=== PATIENT | female | born 1950 | race Caucasian/White ===

== ENCOUNTER 2017-05-17 09:54 | Emergency (ER) | payer MEDICAID ==
[2017-05-17 10:15] VITALS: RESP 18; O2SAT 98
--- NOTE | 2017-05-17 10:31 | C.PDOC ---
History Of Present Illness 67 year old female, with a PSHx of a , presents to the ED with complaints of worsening LLQ pain for two weeks that began intermittent but has become more constant. Pain is localized and patient notes dysuria. Abdominal pain is not associated with urination. Patient notes nausea and subjective fever beginning today. Patient denies vomiting,diarrhea, hematuria, or other complaints at this time. WORSENING LLQ PAIN X 2 WEEKS. INTERMIT NOW MORE CONSTANT. LOCALIZED. +DYSURIA. PAIN NOT ASSOC W URINATION. +SUBJ FEVER TODAY. +NAUSEA. PSH CSECT EXAM MILD DIST NONTOXIC ABD +MILD B/L LQ TEND SOFT NO R/G REMAINDER NEG Time Seen by Provider: 05/17/17 10:28 Chief Complaint (Nursing): Abdominal Pain History Per: Patient History/Exam Limitations: no limitations Onset/Duration Of Symptoms: Intermittent Episodes (2 weeks ), Worse Since ( today with nausea and subjective fever ) Current Symptoms Are (Timing): Still Present Location Of Pain/Discomfort: LLQ Radiation Of Pain To:: None Quality Of Discomfort: "Pain" Associated Symptoms: Fever (subjective ), Nausea, Other (dysuria ). denies: Chills, Vomiting, Diarrhea Exacerbating Factors: None Alleviating Factors: None Recent travel outside of the [place]: No Abnormal Vaginal Bleeding: No Past Medical History Reviewed: Historical Data, Nursing Documentation, Vital Signs Vital Signs: Last Vital Signs Temp 98 F 05/17/17 13:47 Pulse 61 05/17/17 13:47 Resp 18 05/17/17 13:47 BP 142/77 05/17/17 13:47 Pulse Ox 98 05/17/17 13:47 - Medical History PMH: Hyperlipidemia, Kidney Stones, Chronic Kidney Disease Surgical History: Endoscopy - [facility] Procedures CYSTOSCOPY NEC (01/03/15) RETROGRADE PYELOGRAM (01/03/15) URETERAL CATHETERIZATION (01/03/15) Family History: States: Unknown Family Hx - Social History Hx Tobacco Use: No Hx Alcohol Use: No Hx Substance Use: No - Immunization History Hx Tetanus Toxoid Vaccination: No Hx Influenza Vaccination: No Hx Pneumococcal Vaccination: No Review Of Systems Constitutional: Positive for: Fever. Negative for: Chills Cardiovascular: Negative for: Chest Pain, Palpitations Respiratory: Negative for: Cough, Shortness of Breath Gastrointestinal: Positive for: Nausea, Abdominal Pain. Negative for: Vomiting , Diarrhea Genitourinary: Positive for: Dysuria. Negative for: Hematuria, Vaginal Bleeding Physical Exam - Physical Exam Appears: Non-toxic, Other (patient appears to be in mild distress) Skin: Warm, Dry, No Rash Head: Atraumatic, Normacephalic, No Tenderness Eye(s): bilateral: Normal Inspection, PERRL, EOMI Neck: Supple Chest: Symmetrical, No Deformity Cardiovascular: Rhythm Regular, No Murmur Respiratory: No Rales, No Rhonchi, No Wheezing, Other (clear to auscultation bilaterally ) Gastrointestinal/Abdominal: Soft, Tenderness (mild bilateral lower quadrant tenderness ), No Distention, No Guarding, No Rebound Extremity: Normal ROM, No Tenderness Neurological/Psych: Oriented x3 ED Course And Treatment - Laboratory Results Result Diagrams: 05/17/17 11:28 05/17/17 11:28 O2 Sat by Pulse Oximetry: 98 (RA) Pulse Ox Interpretation: Normal - CT Scan/US Abdomen Pelvis CT Other Rad Studies (CT/US): Read By Radiologist, Radiology Report Reviewed CT/US Interpretation: FINDINGS: LOWER THORAX: No visible consolidation, pleural effusion, or pneumothorax. LIVER: Unremarkable. GALLBLADDER AND BILE DUCTS: Cholelithiasis. PANCREAS: Unremarkable. SPLEEN: Unremarkable. ADRENALS: Unremarkable. KIDNEYS AND URETERS: The kidneys enhance symmetrically. Right-sided hydroureteronephrosis without obstructing calculus identified. Inflammatory changes noted along the ureter course. Correlate clinically for possibility of superimposed infection. Recently passed stone cannot be excluded. BLADDER: The urinary bladder appears unremarkable. REPRODUCTIVE: Fibroid uterus. APPENDIX: No secondary signs of acute appendicitis. BOWEL: The stomach is nondistended. The bowel loops appear within normal limits of caliber without evidence of intestinal obstruction. PERITONEUM: No significant free fluid. No definite free air. LYMPH NODES: Prominent vessels at the level of the left retroperitoneum. No bulky lymphadenopathy identified. VASCULATURE: No aortic aneurysm. BONES: Osseous demineralization. Degenerative changes. OTHER FINDINGS: None. IMPRESSION: Right-sided hydroureteronephrosis without obstructing calculus identified. Inflammatory changes noted along the ureter course. Correlate clinically for possibility of superimposed infection. Recently passed stone cannot be excluded. Cholelithiasis. Fibroid uterus. Additional incidental findings as above. Progress Note: Abdomen Pelvis CT and labs were ordered. Patient was given Morphine, Zofran, and Lactated Ringers. Progress - Re-Evaluation Re-evaluation Note: 05/17/17 13:32 COMFROTABLE NAD ASYMPT PS PRIOR HO KIDNEY STONES. DC ABX, FU - Data Reviewed Data Reviewed: Lab, Diagnostic imaging, Old records Disposition Counseled Patient/Family Regarding: Studies Performed, Diagnosis, Need For Followup, Rx Given - Disposition Referrals: Arnulfo Gusman Jr., MD [Staff Provider] - YOUR,UROLOGIST [Other] Disposition: HOME/ ROUTINE Disposition Time: 13:33 Condition: IMPROVED Prescriptions: Ibuprofen [Motrin] 600 mg PO Q6 #30 tab levoFLOXacin [Levaquin] 750 mg PO DAILY #6 tab Ondansetron [Zofran Odt] 4 mg PO TID PRN #9 odt PRN Reason: Nausea/Vomiting Phenazopyridine HCl [Pyridium] 200 mg PO BID #6 tablet Tamsulosin [Flomax] 0.4 mg PO DAILY #14 cap Instructions: Urinary Tract Infection in Women (ED), Renal Colic (ED) Forms: [employer] (Indonesian) - Clinical Impression Clinical Impression: Renal colic, UTI (urinary tract infection) - Scribe Statement The provider has reviewed the documentation as recorded by the Scribe Gabriela Jacobs All medical record entries made by the Scribe were at my direction and personally dictated by me. I have reviewed the chart and agree that the record accurately reflects my personal performance of the history, physical exam, medical decision making, and the department course for this patient. I have also personally directed, reviewed, and agree with the discharge instructions and disposition.
[2017-05-17] MEDS ORDERED: Lactated Ringer's 1,000 ML IV STA (10:42)
[2017-05-17] MEDS ORDERED: Iohexol 240 (50 ml) PO STA (10:42)
[2017-05-17] MEDS ORDERED: Lactated Ringer's 1,000 ML ONE (11:00)
[2017-05-17] MEDS ORDERED: Iohexol 240 (50 ml) ONE (11:00)
[2017-05-17 11:35] LABS: BASO # 0.1 K/uL (0.0-0.2); BASO % 0.8 % (0.0-2.0); EOS # 0.2 K/uL (0.0-0.7); EOS % 2.6 % (0.0-4.0); HEMATOCRIT 36.5 % (34.0-47.0); LYMPH # 1.5 K/uL (1.0-4.3); LYMPH % 15.5 % (20.0-40.0); MEAN CELL VOLUME 76.6 fL (81.0-99.0); MEAN CORPUSCULAR HEMOGLOBIN 24.8 pg (27.0-31.0); MEAN CORPUSCULAR HGB CONC 32.3 g/dL (33.0-37.0); MEAN PLATELET VOLUME 8.2 fL (7.2-11.7); MONO # 0.4 K/uL (0.0-0.8); MONO % 4.3 % (0.0-10.0); RED CELL DISTRIBUTION WIDTH 15.2 % (11.5-14.5); WHITE BLOOD COUNT 9.5 K/uL (4.8-10.8)
[2017-05-17 11:43] LABS: CHLORIDE 101 mmol/L (98-107); SODIUM 139 mmol/L (132-148)
[2017-05-17 11:44] LABS: POTASSIUM 3.6 mmol/L (3.6-5.2)
[2017-05-17 11:46] LABS: ALKALINE PHOSPHATASE 90 U/L (38-126); ALT/SGPT 26 U/L (9-52); AST/SGOT 23 U/L (14-36); BILIRUBIN,TOTAL 0.6 mg/dL (0.2-1.3); BLOOD UREA NITROGEN 15 mg/dL (7-17); CALCIUM 8.7 mg/dl (8.6-10.4); CARBON DIOXIDE 27 mmol/L (22-30); GFR AFRICAN-AMERICAN > 60; GLUCOSE,RANDOM 92 mg/dL (65-105); TOTAL PROTEIN 8.9 g/dL (6.3-8.3)
[2017-05-17 11:58] LABS: RBC URINE 15 /hpf (0-3); URINE BACTERIA RARE (<OCC); URINE BILIRUBIN NEGATIVE (NEGATIVE); URINE BLOOD 2+ (NEGATIVE); URINE COLOR Yellow (YELLOW); URINE GLUCOSE (UA) NORMAL (Normal); URINE KETONE NEGATIVE (NEGATIVE); URINE LEUKOCYTE ESTERASE TRACE Leu/uL (Negative); URINE PROTEIN 2+ mg/dL (NEGATIVE); URINE UROBILINOGEN NORMAL mg/dL (0.2-1.0); WBC URINE 36 /hpf (0-5)
[2017-05-17] MEDS ORDERED: Iodixanol 320 MG/ML 100 ML BOTTLE IV ONE (12:44)
--- NOTE | 2017-05-17 13:22 | CT ---
PROCEDURE: CT Abdomen and Pelvis with oral and IV contrast. HISTORY: abd pain RLQ COMPARISON: CT abdomen and pelvis without contrast performed 01/02/15 TECHNIQUE: Contiguous axial images of the abdomen and pelvis. Oral and IV contrast was administered. Coronal and Sagittal reformats generated and reviewed. Contrast dose: 100 mL Visipaque Radiation dose: Total exam DLP = 896.91 mGy-cm. This CT exam was performed using one or more of the following dose reduction techniques: Automated exposure control, adjustment of the mA and/or kV according to patient size, and/or use of iterative reconstruction technique. FINDINGS: LOWER THORAX: No visible consolidation, pleural effusion, or pneumothorax. LIVER: Unremarkable. GALLBLADDER AND BILE DUCTS: Cholelithiasis. PANCREAS: Unremarkable. SPLEEN: Unremarkable. ADRENALS: Unremarkable. KIDNEYS AND URETERS: The kidneys enhance symmetrically. Right-sided hydroureteronephrosis without obstructing calculus identified. Inflammatory changes noted along the ureter course. Correlate clinically for possibility of superimposed infection. Recently passed stone cannot be excluded. BLADDER: The urinary bladder appears unremarkable. REPRODUCTIVE: Fibroid uterus. APPENDIX: No secondary signs of acute appendicitis. BOWEL: The stomach is nondistended. The bowel loops appear within normal limits of caliber without evidence of intestinal obstruction. PERITONEUM: No significant free fluid. No definite free air. LYMPH NODES: Prominent vessels at the level of the left retroperitoneum. No bulky lymphadenopathy identified. VASCULATURE: No aortic aneurysm. BONES: Osseous demineralization. Degenerative changes. OTHER FINDINGS: None. IMPRESSION: Right-sided hydroureteronephrosis without obstructing calculus identified. Inflammatory changes noted along the ureter course. Correlate clinically for possibility of superimposed infection. Recently passed stone cannot be excluded. Cholelithiasis. Fibroid uterus. Additional incidental findings as above.
[2017-05-17 13:48] VITALS: BP 142/77; PULSE 61; TEMP 98
== END 2017-05-17 13:49 | disposition home or self-care (01) ==
LOC: C.ER 09:54
DX: N39.0 Urinary tract infection, site not specified (principal); N23 Unspecified renal colic; N18.9 Chronic kidney disease, unspecified
CPT/HCPCS: 74177; 80053; 81001; 83690; 85025; 87086; 96374; 96375; 99284; J1885; J2270; J2405; J7120; Q9966; Q9967

== ENCOUNTER 2017-05-30 09:51 | Inpatient (IN) | payer MEDICAID ==
[2017-05-30] MEDS ORDERED: Sodium Chloride 0.9% 1,000 ML IV ONE ×2 (10:39→13:32)
[2017-05-30 10:58] LABS: BASO % 0.7 % (0.0-2.0); EOS % 0.1 % (0.0-4.0); HEMATOCRIT 35.3 % (34.0-47.0); LYMPH # 0.5 K/uL (1.0-4.3); LYMPH % 6.4 % (20.0-40.0); MEAN CORPUSCULAR HEMOGLOBIN 24.7 pg (27.0-31.0); MEAN CORPUSCULAR HGB CONC 33.1 g/dL (33.0-37.0); MEAN PLATELET VOLUME 8.4 fL (7.2-11.7); MONO # 0.4 K/uL (0.0-0.8); MONO % 5.7 % (0.0-10.0); NRBC % 0.5 % (0.0-2.0); PLATELET COUNT 209 K/uL (130-400); WHITE BLOOD COUNT 7.2 K/uL (4.8-10.8)
[2017-05-30 10:59] LABS: MEAN CELL VOLUME 74.6 fL (81.0-99.0)
[2017-05-30 11:03] LABS: VENOUS BLOOD GAS BASE EXCESS 0.4 mmol/L (0.0-2.0); VENOUS BLOOD GAS PCO2 31 mmHg (40-60); VENOUS BLOOD PH 7.48 (7.32-7.43)
[2017-05-30 11:08] LABS: ALB/GLOB RATIO 1.2 (1.0-2.1); ALKALINE PHOSPHATASE 96 U/L (38-126); ALT/SGPT 24 U/L (9-52); AST/SGOT 26 U/L (14-36); BILIRUBIN,TOTAL 1.2 mg/dL (0.2-1.3); BLOOD UREA NITROGEN 15 mg/dL (7-17); CALCIUM 8.1 mg/dl (8.6-10.4); CARBON DIOXIDE 23 mmol/L (22-30); CHLORIDE 91 mmol/L (98-107); GFR AFRICAN-AMERICAN > 60; GLUCOSE,RANDOM 117 mg/dL (65-105); POTASSIUM 3.7 mmol/L (3.6-5.2); SODIUM 127 mmol/L (132-148); TOTAL PROTEIN 7.8 g/dL (6.3-8.3)
[2017-05-30 11:16] LABS: URINE BACTERIA RARE (<OCC); URINE BILIRUBIN NEGATIVE (NEGATIVE); URINE COLOR Yellow (YELLOW); URINE GLUCOSE (UA) NORMAL (Normal); URINE KETONE 1+ mg/dL (NEGATIVE); URINE LEUKOCYTE ESTERASE NEG Leu/uL (Negative); URINE PROTEIN 2+ mg/dL (NEGATIVE); URINE UROBILINOGEN NORMAL mg/dL (0.2-1.0); WBC URINE 1 /hpf (0-5)
[2017-05-30 11:28] LABS: NEUTROPHIL 82 % (50-75); TOTAL CELLS COUNTED 100
[2017-05-30 11:31] LABS: RBC URINE 5 /hpf (0-3)
[2017-05-30 11:32] LABS: URINE BLOOD 3+ (NEGATIVE)
--- NOTE | 2017-05-30 13:54 | C.PDOC ---
History Of Present Illness 67 yr old female presents to the ER with complaints of fever, nausea, vomiting and generalized weakness for the past 3 days. Patient denies chest pain, SOB, cough, sore throat, runny nose, abdominal pain, dysuria/hematuria. She also denies sick contacts or recent overseas travel. Time Seen by Provider: 05/30/17 10:20 Chief Complaint (Nursing): GI Problem History Per: Patient History/Exam Limitations: no limitations Onset/Duration Of Symptoms: Days (3) Past Medical History Reviewed: Historical Data, Nursing Documentation, Vital Signs Vital Signs: Last Vital Signs Temp 97.8 F 06/02/17 15:34 Pulse 82 06/02/17 15:34 Resp 20 06/02/17 15:34 BP 114/73 06/02/17 15:34 Pulse Ox 95 06/02/17 15:34 - Medical History PMH: Hyperlipidemia, Kidney Stones, Chronic Kidney Disease Surgical History: Endoscopy - [facility] Procedures CYSTOSCOPY NEC (01/03/15) RETROGRADE PYELOGRAM (01/03/15) URETERAL CATHETERIZATION (01/03/15) Family History: States: No Known Family Hx - Social History Hx Tobacco Use: No Hx Alcohol Use: No Hx Substance Use: No - Immunization History Hx Tetanus Toxoid Vaccination: No Hx Influenza Vaccination: No Hx Pneumococcal Vaccination: No Review Of Systems Except As Marked, All Systems Reviewed And Found Negative. Constitutional: Positive for: Fever (Subjective), Weakness (Generalized) ENT: Negative for: Nose Discharge, Throat Pain Cardiovascular: Negative for: Chest Pain Respiratory: Negative for: Cough, Shortness of Breath Gastrointestinal: Positive for: Nausea, Vomiting. Negative for: Abdominal Pain Genitourinary: Negative for: Dysuria, Incontinence Neurological: Negative for: Weakness, Numbness Physical Exam - Physical Exam Appears: Non-toxic, Other ((+) Uncomfortable) Skin: Warm, Dry, No Rash Head: Atraumatic, Normacephalic Oral Mucosa: Moist Cardiovascular: Rhythm Regular, Other ((+) Tachy) Respiratory: Normal Breath Sounds, No Rales, No Rhonchi, No Stridor, No Wheezing Gastrointestinal/Abdominal: Normal Exam, Soft, No Tenderness, No Guarding, No Rebound Back: Normal Inspection, No CVA Tenderness Extremity: Normal ROM, No Swelling Neurological/Psych: Oriented x3, Normal Speech, Normal Motor, Normal Sensation ED Course And Treatment - Laboratory Results Result Diagrams: 06/02/17 08:51 06/02/17 08:51 ECG: Interpreted By Me, Viewed By Me (NSR 100 bpm, normal axis, no acute ST/T wave changes) ECG Interpretation: No Acute Changes O2 Sat by Pulse Oximetry: 97 (RA) Pulse Ox Interpretation: Normal - Radiology CXR: Interpreted by Me, Viewed By Me CXR Interpretation: Yes: Cardiomegaly. No: Infiltrates - CT Scan/US CT SCAN ABD/PELVIS Other Rad Studies (CT/US): Read By Radiologist, Radiology Report Reviewed CT/US Interpretation: Accession No. : [id number]. Patient Name / ID : MICK SHAHID / [id number]. Exam Date : 05/30/2017 14:13:33 ( Approved ). Study Comment : Sex / Age : F / 67Y. Creator : Nhan Powers MD. Dictator : [employer] Manager : Real Estate Account Executive : Nhan Powers MD. Approver2 : Report Date : 05/30/2017 15:00:46. My Comment : . PROCEDURE: CT abdomen and pelvis dated 05/30/2017. HISTORY: Abdominal pain nausea vomiting and fever. COMPARISON: Comparison made with prior study 05/17/2017. TECHNIQUE: Contiguous axial images of the abdomen and pelvis performed without oral or intravenous contrast. Coronal and Sagittal reformats generated. This CT exam was performed using one or more of the following dose reduction techniques: Automated exposure control, adjustment of the mA and/or kV according to patient size, and/or use of iterative reconstruction technique. Radiation dose: Total exam DLP = 679.78 mGy-cm. FINDINGS: LOWER THORAX: . Trace pericardial effusion is present. Heart size within range of normal. There is a small hiatal hernia. Mild passive atelectasis right lower lobe of. Minor linear scarring extending to the posterior pleural surface seen in the left lung base. LIVER: Liver is mildly enlarged measuring nearly 19 cm in CC dimension. No obvious hepatic mass collection or calcification. GALLBLADDER AND BILE DUCTS: Gallbladder is physiologically distended. No evidence of intraluminal gallbladder calculi. PANCREAS: The pancreas appears slightly atrophic and fatty replaced. No obvious pancreatic masses collections or calcifications. No significant pancreatic ductal dilatation. SPLEEN: Spleen is mildly enlarged measuring approximately 14 cm in CC dimension. No obvious splenic mass or collection. ADRENALS: No adrenal masses. KIDNEYS AND URETERS: Kidneys demonstrate symmetric size. No evidence of nephrolithiasis or hydronephrosis. The urinary bladder is physiologically distended. No evidence of intraluminal urinary bladder calculi. BLADDER: The urinary bladder physiologically distended. No evidence of intraluminal urinary bladder calculi. . REPRODUCTIVE : The uterus is slightly enlarged and bulky in appearance. APPENDIX: Unremarkable. BOWEL: Evaluation of the bowel is somewhat limited due to the lack of oral contrast material. The stomach is incompletely distended which presumably accounts for slight thick-walled appearance. Visualized loops of small bowel exhibit normal contour and caliber. No evidence of acute mechanical small bowel obstruction. There are a few colonic diverticula seen along the distal descending and sigmoid colon however no radiographic evidence of acute diverticulitis. PERITONEUM: Unremarkable. No fluid collection. No free air. . Tiny fat containing umbilical hernia. LYMPH NODES: No significant adenopathy. VASCULATURE: Unremarkable. No aortic aneurysm. BONES: Minor multilevel degenerative spondylosis of the lower thoracic and lumbar spine. Sclerotic density within the at left lateral superior L5 segment probably represents bone island or osteoma. OTHER FINDINGS: None. Progress Note: PLAN: Blood work, CXR, UA, influenza swab ordered and reviewed. Patient given IV NS bolus, PO tylenol. Blood work shows left shift with 9% bands. CT scan of abd/pelvis ordered and reviewed - shows hepatosplenomegaly and trace pericardial effusion (? due to viral syndrome). EKG ordered. - Physician Consult Information Physician Contacted: Stacie Singh Outcome Of Conversation: Discussed patient with Dr. Jacklyn Singh, he would like Dr. Collins for ID and Rocephin 1 g IVPB. Disposition - Disposition Disposition: HOSPITALIZED Disposition Time: 16:11 Condition: STABLE - Clinical Impression Clinical Impression: Hepatosplenomegaly, Fever, Bandemia, Pericardial effusion, Viral syndrome - Scribe Statement The provider has reviewed the documentation as recorded by the Salome Hahn Provider Attestation: All medical record entries made by the Inocenciaibe were at my direction and personally dictated by me. I have reviewed the chart and agree that the record accurately reflects my personal performance of the history, physical exam, medical decision making, and the department course for this patient. I have also personally directed, reviewed, and agree with the discharge instructions and disposition. Decision To Admit - Pt Status Changed To: Hospital Disposition Of: Inpatient - Admit Certification Admit to Inpatient:: After my assessment, the patient will require hospitalization for at least two midnights. This is because of the severity of symptoms shown, intensity of services needed, and/or the medical risk in this patient being treated as an outpatient. - InPatient: Physician Admission Certification: I certify that this patient requires 2 or more midnights of care for the following reason:: see notes - . Bed Request Type: Telemetry Admitting Physician: Stacie Singh Patient Diagnosis: Pericardial effusion, Fever, Hepatosplenomegaly, Bandemia, Viral syndrome
--- NOTE | 2017-05-30 15:23 | CT ---
PROCEDURE: CT abdomen and pelvis dated 05/30/2017. HISTORY: Abdominal pain nausea vomiting and fever. COMPARISON: Comparison made with prior study 05/17/2017. TECHNIQUE: Contiguous axial images of the abdomen and pelvis performed without oral or intravenous contrast. Coronal and Sagittal reformats generated. This CT exam was performed using one or more of the following dose reduction techniques: Automated exposure control, adjustment of the mA and/or kV according to patient size, and/or use of iterative reconstruction technique. Radiation dose: Total exam DLP = 679.78 mGy-cm. FINDINGS: LOWER THORAX: . Trace pericardial effusion is present. Heart size within range of normal. There is a small hiatal hernia. Mild passive atelectasis right lower lobe of. Minor linear scarring extending to the posterior pleural surface seen in the left lung base. LIVER: Liver is mildly enlarged measuring nearly 19 cm in CC dimension. No obvious hepatic mass collection or calcification. GALLBLADDER AND BILE DUCTS: Gallbladder is physiologically distended. No evidence of intraluminal gallbladder calculi. PANCREAS: The pancreas appears slightly atrophic and fatty replaced. No obvious pancreatic masses collections or calcifications. No significant pancreatic ductal dilatation. SPLEEN: Spleen is mildly enlarged measuring approximately 14 cm in CC dimension. No obvious splenic mass or collection. ADRENALS: No adrenal masses. KIDNEYS AND URETERS: Kidneys demonstrate symmetric size. No evidence of nephrolithiasis or hydronephrosis. The urinary bladder is physiologically distended. No evidence of intraluminal urinary bladder calculi. BLADDER: The urinary bladder physiologically distended. No evidence of intraluminal urinary bladder calculi. . REPRODUCTIVE: The uterus is slightly enlarged and bulky in appearance. APPENDIX: Unremarkable. BOWEL: Evaluation of the bowel is somewhat limited due to the lack of oral contrast material. The stomach is incompletely distended which presumably accounts for slight thick-walled appearance. Visualized loops of small bowel exhibit normal contour and caliber. No evidence of acute mechanical small bowel obstruction. There are a few colonic diverticula seen along the distal descending and sigmoid colon however no radiographic evidence of acute diverticulitis. PERITONEUM: Unremarkable. No fluid collection. No free air. . Tiny fat containing umbilical hernia. LYMPH NODES: No significant adenopathy. VASCULATURE: Unremarkable. No aortic aneurysm. BONES: Minor multilevel degenerative spondylosis of the lower thoracic and lumbar spine. Sclerotic density within the at left lateral superior L5 segment probably represents bone island or osteoma. OTHER FINDINGS: None. IMPRESSION: [employer] the the open the the open the the [employer] who has unlimited liability
[2017-05-30] MEDS ORDERED: cefTRIAXone IV 1 gm in Dextros 50 ML IV STA (16:33)
[2017-05-30] MEDS ORDERED: cefTRIAXone IV 1 gm in Dextros 50 ML IVPB ONE (16:37)
--- NOTE | 2017-05-30 17:05 | CP.PCM.HP ---
History of Present Illness - History of Present Illness History of Present Illness: A 67-year-old female with PMH-hyperlipidemia, renal stone and CKD presents to the ER for C/O-fever. C/O-fever for 3 days. Insidious in onset, progressive, high-grade, with chills and rigors, near continuous throughout the day, partly relieved by medications. C/O-vomiting for 3 days. Nonbilious non-bloody, 1-2 episodes per day, containing only food particles. C/O-generalized weakness for 2-3 days. No C/O-chest pain, shortness of breath, cough, abdominal pain, abdominal distention, urinary or bladder disturbances. Present on Admission - Present on Admission Any Indicators Present on Admission: No Past Patient History - Past Medical History & Family History Past Medical History?: Yes - Past Social History Smoking Status: Never Smoked - CARDIAC Hx Cardiac Disorders: No - PULMONARY Hx Respiratory Disorders: No - NEUROLOGICAL Hx Neurological Disorder: No - HEENT Hx HEENT Problems: Yes Hx Cataracts: Yes - RENAL Hx Chronic Kidney Disease: Yes Hx Kidney Stones: Yes - ENDOCRINE/METABOLIC Hx Endocrine Disorders: No - HEMATOLOGICAL/ONCOLOGICAL Hx Blood Disorders: No Hx Blood Transfusions: Yes Hx Blood Transfusion Reaction: No - INTEGUMENTARY Hx Dermatological Problems: No - MUSCULOSKELETAL/RHEUMATOLOGICAL Hx Musculoskeletal Disorders: No Hx Falls: No - GASTROINTESTINAL Hx Gastrointestinal Disorders: Yes (HX GI BLEEDING DUE TO NAPROSYN) - GENITOURINARY/GYNECOLOGICAL Hx Genitourinary Disorders: No - PSYCHIATRIC Hx Substance Use: No - SURGICAL HISTORY Hx Surgeries: Yes Hx Cataract Extraction: Yes (BILAT IOL) Hx Section: Yes (26 years ago) Other/Comment: CYSTO STENT INSERTION - ANESTHESIA Hx Anesthesia: Yes Hx Anesthesia Reactions: No Hx Malignant Hyperthermia: No Meds Allergies/Adverse Reactions: Allergies Allergy/AdvReac Type Severity Reaction Status Date / Time No Known Allergies Allergy Unverified 01/02/15 17:31 Physical Exam - Constitutional Appears: Well - Head Exam Head Exam: ATRAUMATIC, NORMAL INSPECTION, NORMOCEPHALIC - Eye Exam Eye Exam: EOMI, Normal appearance, PERRL Pupil Exam: NORMAL ACCOMODATION, PERRL - ENT Exam ENT Exam: Mucous Membranes Moist, Normal Exam - Neck Exam Neck exam: Positive for: Normal Inspection - Respiratory Exam Respiratory Exam: Decreased Breath Sounds - Cardiovascular Exam Cardiovascular Exam: REGULAR RHYTHM, +S1, +S2 - GI/Abdominal Exam GI & Abdominal Exam: Diminished Bowel Sounds, Soft - Rectal Exam Rectal Exam: Deferred Results - Vital Signs Recent Vital Signs: Last Vital Signs Temp 100 F H 05/30/17 16:52 Pulse 103 H 05/30/17 16:52 Resp 18 05/30/17 16:52 BP 150/79 05/30/17 16:52 Pulse Ox 99 05/30/17 16:52 - Labs Result Diagrams: 06/02/17 08:51 06/02/17 08:51 Labs: Laboratory Results - last 24 hr 05/30/17 05/30/17 05/30/17 10:41 10:51 10:51 WBC 7.2 RBC 4.73 Hgb 11.7 Hct 35.3 MCV 74.6 L D MCH 24.7 L MCHC 33.1 RDW 15.0 H Plt Count 209 MPV 8.4 Neut % (Auto) 87.1 H Lymph % (Auto) 6.4 L [place] % (Auto) 5.7 Eos % (Auto) 0.1 Baso % (Auto) 0.7 Neut # 6.3 Lymph # 0.5 L [place] # 0.4 Eos # 0.0 Baso # 0.0 Neutrophils % (Manual) 82 H Band Neutrophils % 9 H Lymphocytes % (Manual) 6 L Monocytes % (Manual) 3 Platelet Estimate Normal Polychromasia Slight Hypochromasia (manual) Slight Anisocytosis (manual) Slight pO2 VBG pH VBG pCO2 VBG HCO3 VBG Total CO2 VBG O2 Sat (Calc) VBG Base Excess VBG Potassium Glucose Lactate Sodium Potassium Chloride Carbon Dioxide Anion Gap BUN Creatinine Est GFR ( Amer) Est GFR (Non-Af Amer) Random Glucose Calcium Total Bilirubin AST ALT Alkaline Phosphatase Total Protein Albumin Globulin Albumin/Globulin Ratio Venous Blood Potassium Urine Color Yellow Urine Clarity Hazy Urine pH 5.0 Ur Specific [place] 1.021 Urine Protein 2+ H Urine Glucose (UA) Normal Urine Ketones 1+ H Urine Blood 3+ H Urine Nitrate Negative Urine Bilirubin Negative Urine Urobilinogen Normal Ur Leukocyte Esterase Neg Urine WBC (Auto) 1 Urine RBC (Auto) 5 H Ur Squamous Epith Cells < 1 Urine Bacteria Rare Hyaline Casts 6-10 H Urine HCG, Qual Negative Influenza Typ A,B (EIA) Negative for flu a/b 05/30/17 05/30/17 10:51 10:57 WBC RBC Hgb Hct MCV MCH MCHC RDW Plt Count MPV Neut % (Auto) Lymph % (Auto) [place] % (Auto) Eos % (Auto) Baso % (Auto) Neut # Lymph # [place] # Eos # Baso # Neutrophils % (Manual) Band Neutrophils % Lymphocytes % (Manual) Monocytes % (Manual) Platelet Estimate Polychromasia Hypochromasia (manual) Anisocytosis (manual) pO2 39 VBG pH 7.48 H VBG pCO2 31 L VBG HCO3 24.7 VBG Total CO2 24.1 VBG O2 Sat (Calc) 82.0 H VBG Base Excess 0.4 VBG Potassium 3.6 Glucose 127 H Lactate 1.4 Sodium 127 L 130.0 L Potassium 3.7 Chloride 91 L 97.0 L Carbon Dioxide 23 Anion Gap 16 BUN 15 Creatinine 0.9 Est GFR ( Amer) > 60 Est GFR (Non-Af Amer) > 60 Random Glucose 117 H Calcium 8.1 L Total Bilirubin 1.2 AST 26 ALT 24 Alkaline Phosphatase 96 Total Protein 7.8 Albumin 4.2 Globulin 3.6 Albumin/Globulin Ratio 1.2 Venous Blood Potassium 3.6 Urine Color Urine Clarity Urine pH Ur Specific [place] Urine Protein Urine Glucose (UA) Urine Ketones Urine Blood Urine Nitrate Urine Bilirubin Urine Urobilinogen Ur Leukocyte Esterase Urine WBC (Auto) Urine RBC (Auto) Ur Squamous Epith Cells Urine Bacteria Hyaline Casts Urine HCG, Qual Influenza Typ A,B (EIA)
--- NOTE | 2017-05-30 18:59 | RAD ---
PROCEDURE: CHEST RADIOGRAPH, 1 VIEW HISTORY: FEVER COMPARISON: Comparison made with chest radiograph 01/18/2015. FINDINGS: LUNGS: Poor inspiration with low lung volumes, crowded bronchovascular markings and mild bibasilar atelectasis. 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 CARDIOVASCULAR: Heart size mildly enlarged. OSSEOUS STRUCTURES: No significant abnormalities. VISUALIZED UPPER ABDOMEN: Normal. OTHER FINDINGS: None. IMPRESSION: Poor inspiration with low lung volumes, crowded bronchovascular markings and mild bibasilar atelectasis.
[2017-05-31] MEDS: Dextrose 5%/0.45% NS 1,000 ML IV SCH ×4 (01:07→21:36)
[2017-05-31 08:48] VITALS: RESP 20
[2017-05-31] MEDS: Pantoprazole 40 mg EC Tab PO SCH (09:16)
[2017-05-31] MEDS: Enoxaparin 40 mg Syringe SC SCH (09:17)
[2017-05-31] MEDS: cefTRIAXone IV 1 gm in Dextros 50 ML IVPB SCH (09:18)
[2017-05-31] MEDS: Azithromycin 500 MG in Sodium Chloride 0.9% 250 ML IVPB SCH (09:20)
[2017-05-31] MEDS ORDERED: cefTRIAXone 2 GM in Sodium Chloride 0.9% 100 ML IVPB SCH (10:00)
--- NOTE | 2017-05-31 10:49 | CP.PCM.CON ---
History of Present Illness - History of Present Illness History of Present Illness: 67 yr old female presents to the ER with complaints of fever, nausea, vomiting and generalized weakness for the past 3 days. Patient denies chest pain, SOB, cough, sore throat, runny nose, abdominal pain, dysuria/hematuria. She also denies sick contacts or recent overseas travel. - Medical History PMH: Hyperlipidemia, Kidney Stones, Chronic Kidney Disease Surgical History: Endoscopy Review of Systems - Review of Systems All systems: reviewed and no additional remarkable complaints except - Constitutional Constitutional: As Per HPI, Fever, Malaise - EENT Eyes: absent: As Per HPI, Blind Spots, Blurred Vision, Change in Vision, Decreased Night Vision, Diplopia, Discharge, Dry Eye, Exophthalmos, Floaters, Irritation, Itchy Eyes, Loss of Peripheral Vision, Pain, Photophobia, Requires Corrective Lenses, Sees Flashes, Spots in Vision, Tunnel Vision, Other Visual Disturbances, Loss of Vision, Other Ears: absent: As Per HPI, Decreased Hearing, Ear Discharge, Ear Pain, Tinnitus, Abnormal Hearing, Disequilibrium, Dizziness, Other Nose/Mouth/Throat: As Per HPI - Breasts Breasts: absent: As Per HPI, Change in Shape, Mass, Pain, Nipple Discharge, Nipple Inversion, Skin Changes, Swelling, Other - Cardiovascular Cardiovascular: absent: As Per HPI, Acrocyanosis, Chest Pain, Chest Pain at Rest , Chest Pain with Activity, Claudication, Diaphoresis, Dyspnea, Dyspnea on Exertion, Edema, Irregular Heart Rhythm, Pain Radiating to Arm/Neck/Jaw, Leg Edema, Leg Ulcers, Lightheadedness, Orthopnea, Palpitations, Paroxysmal Nocturnal Dyspnea, Pedal Edema, Radiating Pain, Rapid Heart Rate, Slow Heart Rate, Syncope, Other - Respiratory Respiratory: absent: As Per HPI, Cough, Dyspnea, Hemoptysis, Dyspnea on Exertion , Wheezing, Snoring, Stridor, Pain on Inspiration, Chest Congestion, Excessive Mucous Production, Change in Mucous Color, Pain with Coughing, Other - Gastrointestinal Gastrointestinal: absent: As Per HPI, Abdominal Pain, Belching, Bloating, Change in Bowel Habits, Change in Stool Character, Coffee Ground Emesis, Constipation, Cramping, Diarrhea, Dyspepsia, Dysphagia, Early Satiety, Excessive Flatus, Fecal Incontinence, Heartburn, Hematemesis, Hematochezia, Loose Stools, Melena, Nausea, Odynophagia, Temesmus, Vomiting, Other - Genitourinary Genitourinary: absent: As Per HPI, Change in Urinary Stream, Difficulty Urinating, Dysuria, Flank Pain, Hematuria, Pyuria, Nocturia, Urinary Incontinence, Urinary Frequency, Urinary Hesitance, Urinary Urgency, Voiding Freq/Small Amts, Freq UTI, Hx Renal/Bladder Calculi, Hx /Renal Surgery, Bladder Distension, Other - Reproductive: Female Reproductive:Female: absent: As Per HPI, Amenorrhea, Amenorrhea/ Control, Currently Menstual, Cycle <21 Days, Cycle >35 Days, Cycle Variable, Menses 1-7 Days, Menses >/= 8 Days, Menses Variable, Cycle > 4 Weeks Between, No Menses for 6 Months, Heavy Menses, Light Menses, Normal Menses, Spotting Between Cycles , S/P Hysterectomy, Menopausal, Post Menopausal, Premenarche, Abnormal Vaginal Bleeding, Dysmenorrhea, Dyspareunia, Genital Lesions, Genital Pruritis, Pelvic Pain, Prolapse Symptoms, Sexual Dysfunction, Vaginal Discharge, Vaginal Dryness , Vaginal Odor, Vaginal Pruritis, Other - Menstruation Menstruation: absent: As Per HPI, Amenorrhea, Amenorrhea/ Control, Currently Menstual, Cycle <21 Days, Cycle >35 Days, Cycle Variable, Menses 1-7 Days, Menses >/= 8 Days, Menses Variable, Cycle > 4 Weeks Between, No Menses for 6 Months, Heavy Menses, Light Menses, Normal Menses, Spotting Between Cycles , S/P Hysterectomy, Menopausal, Post Menopausal, Premenarche, Abnormal Vaginal Bleeding, Dysmenorrhea, Other - Musculoskeletal Musculoskeletal: absent: As Per HPI, Abnormal Gait, Arthralgias, Atrophy, Back Pain, Deformity, Joint Swelling, Limited Range of Motion, Loss of Height, Muscle Cramps, Muscle Weakness, Myalgias, Neck Pain, Numbness, Radiating Pain into Limb, Stiffness, Tingling, Other - Integumentary Integumentary: absent: As Per HPI, Acne, Alopecia, Bleeding Lesions, Change in Hair, Change in Nails, Change in Pigmentation, Changing Lesions, Dry Skin, Erythema, Furuncle, Hirsutism, Lesions, New Lesions, Non-Healing Lesions, Photosensitivity, Pruritus, Rash, Skin Pain, Skin Ulcer, Sores, Striae, Swelling , Unusual Bruising, Wounds, Jaundice, Other - Neurological Neurological: absent: As Per HPI, Abnormal Gait, Abnormal Hearing, Abnormal Movements, Abnormal Speech, Behavioral Changes, Burning Sensations, Confusion, Convulsions, Disequilibrium, Dizziness, Numbness, Focal Weakness, Frequent Falls , Headaches, Lack of Coordination, Loss of Vision, Memory Loss, Paresthesias, Radicular Pain, Restless Legs, Sensory Deficit, Syncope, Tingling, Tremor, Vertigo, Weakness, Other Visual Disturbances, Other - Psychiatric Psychiatric: absent: As Per HPI, Abnormal Sleep Pattern, Anhedonia, Anxiety, Auditory Hallucinations, Behavioral Changes, Change in Appetite, Change in Libido, Confusion, Depression, Difficulty Concentrating, Hallucinations, Homicidal Ideation, Hopelessness, Irritability, Memory Loss, Mood Swings, Panic Attacks, Paranoia, Suicidal Ideation, Visual Hallucinations, Tactile Hallucinations, Other - Endocrine Endocrine: absent: As Per HPI, Change in Body Appearance, Change in Libido, Cold Intolorance, Deepening of Voice, Excessive Sweating, Fatigue, Flushing, Heat Intolorance, Increase in Ring/Shoe/Hat Size, Palpitations, Polydipsia, Polyphagia, Polyuria, Other - Hematologic/Lymphatic Hematologic: absent: As Per HPI, Easy Bleeding, Easy Bruising, Lymphadenopathy, Other Past Patient History - Past Medical History & Family History Past Medical History?: Yes - Past Social History Smoking Status: Never Smoked - CARDIAC Hx Cardiac Disorders: No - PULMONARY Hx Respiratory Disorders: No - NEUROLOGICAL Hx Neurological Disorder: No - HEENT Hx HEENT Problems: Yes Hx Cataracts: Yes - RENAL Hx Chronic Kidney Disease: Yes Hx Kidney Stones: Yes - ENDOCRINE/METABOLIC Hx Endocrine Disorders: No - HEMATOLOGICAL/ONCOLOGICAL Hx Blood Disorders: No Hx Blood Transfusions: Yes Hx Blood Transfusion Reaction: No - INTEGUMENTARY Hx Dermatological Problems: No - MUSCULOSKELETAL/RHEUMATOLOGICAL Hx Falls: No - GASTROINTESTINAL Hx Gastrointestinal Disorders: Yes (HX GI BLEEDING DUE TO NAPROSYN) - GENITOURINARY/GYNECOLOGICAL Hx Genitourinary Disorders: No - PSYCHIATRIC Hx Substance Use: No - SURGICAL HISTORY Hx Surgeries: Yes Hx Cataract Extraction: Yes (BILAT IOL) Hx Section: Yes (26 years ago) Other/Comment: CYSTO STENT INSERTION - ANESTHESIA Hx Anesthesia: Yes Hx Anesthesia Reactions: No Hx Malignant Hyperthermia: No Meds Allergies/Adverse Reactions: Allergies Allergy/AdvReac Type Severity Reaction Status Date / Time No Known Allergies Allergy Unverified 01/02/15 17:31 - Medications Medications: Current Medications Enoxaparin Sodium (Lovenox) 40 mg SC DAILY [facility] Last Admin: 05/31/17 09:17 Dose: 40 mg Azithromycin 500 mg/ Sodium (Chloride) 250 mls @ 250 mls/hr IVPB DAILY [facility] Last Admin: 05/31/17 09:20 Dose: 250 mls/hr Ceftriaxone Sodium (Rocephin Iv 1 Gm Duplex) 50 mls @ 100 mls/hr IVPB DAILY [facility] Last Admin: 05/31/17 09:18 Dose: 100 mls/hr Dextrose/Sodium Chloride (Dextrose 5%/0.45% Ns 1000 Ml) 1,000 mls @ 100 mls/hr IV .Q10H [facility] Last Admin: 05/31/17 06:33 Dose: 100 mls/hr Pantoprazole Sodium (Protonix Ec Tab) 40 mg PO DAILY [facility] Last Admin: 05/31/17 09:16 Dose: 40 mg Pneumococcal Polyvalent Vaccine (Pneumovax 23 Vaccine) 0.5 ml IM .ONCE ONE Stop: 06/02/17 10:01 Physical Exam - Constitutional Appears: Well - Head Exam Head Exam: ATRAUMATIC, NORMAL INSPECTION, NORMOCEPHALIC - Eye Exam Eye Exam: EOMI, Normal appearance, PERRL Pupil Exam: NORMAL ACCOMODATION, PERRL - ENT Exam ENT Exam: Mucous Membranes Moist, Normal Exam - Neck Exam Neck exam: Positive for: Normal Inspection - Respiratory Exam Respiratory Exam: Clear to Auscultation Bilateral, NORMAL BREATHING PATTERN - Cardiovascular Exam Cardiovascular Exam: REGULAR RHYTHM - GI/Abdominal Exam GI & Abdominal Exam: Normal Bowel Sounds, Soft. absent: Tenderness - Rectal Exam Rectal Exam: NORMAL INSPECTION - Extremities Exam Extremities exam: Positive for: normal inspection - Back Exam Back exam: NORMAL INSPECTION - Neurological Exam Neurological exam: Alert, CN II-XII Intact, Normal Gait, Oriented x3, Reflexes Normal - Psychiatric Exam Psychiatric exam: Normal Affect, Normal Mood - Skin Skin Exam: Dry, Intact, Normal Color, Warm Results - Vital Signs Recent Vital Signs: Last Vital Signs Temp 97.7 F 05/31/17 08:47 Pulse 97 H 05/31/17 08:47 Resp 20 05/31/17 08:47 BP 133/72 05/31/17 08:47 Pulse Ox 95 05/31/17 08:47 - Labs Result Diagrams: 05/30/17 10:51 05/30/17 10:51 Labs: Laboratory Results - last 24 hr 05/30/17 05/30/17 05/30/17 10:41 10:51 10:51 WBC 7.2 RBC 4.73 Hgb 11.7 Hct 35.3 MCV 74.6 L D MCH 24.7 L MCHC 33.1 RDW 15.0 H Plt Count 209 MPV 8.4 Neut % (Auto) 87.1 H Lymph % (Auto) 6.4 L [place] % (Auto) 5.7 Eos % (Auto) 0.1 Baso % (Auto) 0.7 Neut # 6.3 Lymph # 0.5 L [place] # 0.4 Eos # 0.0 Baso # 0.0 Neutrophils % (Manual) 82 H Band Neutrophils % 9 H Lymphocytes % (Manual) 6 L Monocytes % (Manual) 3 Platelet Estimate Normal Polychromasia Slight Hypochromasia (manual) Slight Anisocytosis (manual) Slight pO2 VBG pH VBG pCO2 VBG HCO3 VBG Total CO2 VBG O2 Sat (Calc) VBG Base Excess VBG Potassium Glucose Lactate Sodium Potassium Chloride Carbon Dioxide Anion Gap BUN Creatinine Est GFR ( Amer) Est GFR (Non-Af Amer) Random Glucose Calcium Total Bilirubin AST ALT Alkaline Phosphatase Total Protein Albumin Globulin Albumin/Globulin Ratio Venous Blood Potassium Urine Color Yellow Urine Clarity Hazy Urine pH 5.0 Ur Specific [place] 1.021 Urine Protein 2+ H Urine Glucose (UA) Normal Urine Ketones 1+ H Urine Blood 3+ H Urine Nitrate Negative Urine Bilirubin Negative Urine Urobilinogen Normal Ur Leukocyte Esterase Neg Urine WBC (Auto) 1 Urine RBC (Auto) 5 H Ur Squamous Epith Cells < 1 Urine Bacteria Rare Hyaline Casts 6-10 H Urine HCG, Qual Negative Influenza Typ A,B (EIA) Negative for flu a/b 05/30/17 05/30/17 10:51 10:57 WBC RBC Hgb Hct MCV MCH MCHC RDW Plt Count MPV Neut % (Auto) Lymph % (Auto) [place] % (Auto) Eos % (Auto) Baso % (Auto) Neut # Lymph # [place] # Eos # Baso # Neutrophils % (Manual) Band Neutrophils % Lymphocytes % (Manual) Monocytes % (Manual) Platelet Estimate Polychromasia Hypochromasia (manual) Anisocytosis (manual) pO2 39 VBG pH 7.48 H VBG pCO2 31 L VBG HCO3 24.7 VBG Total CO2 24.1 VBG O2 Sat (Calc) 82.0 H VBG Base Excess 0.4 VBG Potassium 3.6 Glucose 127 H Lactate 1.4 Sodium 127 L 130.0 L Potassium 3.7 Chloride 91 L 97.0 L Carbon Dioxide 23 Anion Gap 16 BUN 15 Creatinine 0.9 Est GFR ( Amer) > 60 Est GFR (Non-Af Amer) > 60 Random Glucose 117 H Calcium 8.1 L Total Bilirubin 1.2 AST 26 ALT 24 Alkaline Phosphatase 96 Total Protein 7.8 Albumin 4.2 Globulin 3.6 Albumin/Globulin Ratio 1.2 Venous Blood Potassium 3.6 Urine Color Urine Clarity Urine pH Ur Specific [place] Urine Protein Urine Glucose (UA) Urine Ketones Urine Blood Urine Nitrate Urine Bilirubin Urine Urobilinogen Ur Leukocyte Esterase Urine WBC (Auto) Urine RBC (Auto) Ur Squamous Epith Cells Urine Bacteria Hyaline Casts Urine HCG, Qual Influenza Typ A,B (EIA) Assessment & Plan (1) Viral syndrome Status: Acute - Assessment and Plan (Free Text) Assessment: possible UTI await cultures
--- NOTE | 2017-05-31 10:50 | CP.PCM.PN ---
Subjective - Date & Time of Evaluation Date of Evaluation: 05/31/17 Time of Evaluation: 08:00 - Subjective Subjective: less fever c/o headache IV rx renewed Objective - Vital Signs/Intake and Output Vital Signs (last 24 hours): Temp Pulse Resp BP Pulse Ox 97.7 F 97 H 20 133/72 95 05/31/17 08:47 05/31/17 08:47 05/31/17 08:47 05/31/17 08:47 05/31/17 08:47 Intake and Output: 05/31/17 05/31/17 06:59 18:59 Intake Total 45 Balance 45 - Medications Medications: Current Medications Enoxaparin Sodium (Lovenox) 40 mg SC DAILY [facility] Last Admin: 05/31/17 09:17 Dose: 40 mg Azithromycin 500 mg/ Sodium (Chloride) 250 mls @ 250 mls/hr IVPB DAILY [facility] Last Admin: 05/31/17 09:20 Dose: 250 mls/hr Ceftriaxone Sodium (Rocephin Iv 1 Gm Duplex) 50 mls @ 100 mls/hr IVPB DAILY [facility] Last Admin: 05/31/17 09:18 Dose: 100 mls/hr Dextrose/Sodium Chloride (Dextrose 5%/0.45% Ns 1000 Ml) 1,000 mls @ 100 mls/hr IV .Q10H [facility] Last Admin: 05/31/17 06:33 Dose: 100 mls/hr Pantoprazole Sodium (Protonix Ec Tab) 40 mg PO DAILY [facility] Last Admin: 05/31/17 09:16 Dose: 40 mg Pneumococcal Polyvalent Vaccine (Pneumovax 23 Vaccine) 0.5 ml IM .ONCE ONE Stop: 06/02/17 10:01 - Labs Labs: 05/30/17 10:51 05/30/17 10:51 - Constitutional Appears: Non-toxic, Cachectic, Chronically Ill - Head Exam Head Exam: NORMOCEPHALIC - Eye Exam Eye Exam: PERRL - ENT Exam ENT Exam: Mucous Membranes Dry - Neck Exam Neck Exam: absent: Lymphadenopathy - Respiratory Exam Respiratory Exam: Decreased Breath Sounds - Cardiovascular Exam Cardiovascular Exam: REGULAR RHYTHM - GI/Abdominal Exam GI & Abdominal Exam: Distended, Soft - Rectal Exam Rectal Exam: Deferred - Exam Exam: NORMAL INSPECTION - Extremities Exam Extremities Exam: absent: Pedal Edema Assessment and Plan (1) Viral syndrome Status: Acute
--- NOTE | 2017-05-31 11:51 | CP.PCM.CON ---
<Star Knott - Last Filed: 05/31/17 12:47> History of Present Illness - History of Present Illness History of Present Illness: Cardiology Consult note for Dr. Robins Recently admitted for- LQ abdominal pain secondary to UTI infection. Patient states her previous admission she was diagnosed with Influenza. HPI: Patient is a 67 year old female with a past medical history of dyslipidemia and nephrolithiasis who presents to [facility] with complaints of nausea, vomiting, fever, and weakness which started on 05/27. Patient states she woke up that morning feeling this way and didn't consume food the entire day. Patient was traveling back from [place]. While in [facility]. patient denies any contact with sick individuals or change in diet. Patient states the symptoms came on suddenly and have since progressed which prompted her to come to the hospital last night. Patient states now she feels fine however is admits to having chills and being diaphoretic. Patient admits to chills, denies chest pain, shortness of breath, abdominal pain, nausea, vomiting, diarrhea. Labs on admission: H&H 11.7/35.3, Sodium 127, Potassium 3.7, CHloride 91, Glucose 117, Calcium 8.1. Influenza a/b negative. Urinaylsis: 2+ protein, 1+ ketones, 3+ blood, 6-10 hyaline casts Imaging Chest X-ray: lungs show croweded bronchovascular markings amd mild bibasilar atelectasis. Mild cardiomegaly, lack of evidence of pleural fluid. CT abdomen/pelvis: shows trace pericardial effusion EKG: NSR PMD: Dr. Song, Electro Winning Operator: Dr. France Past Surgical History: significant for c-sections, B/L cataracts Allergies: NKDA Social history: denies tobacco use , alcohol consumption , illicit drug use Family history: denies; both parents alive and healthy Review of Systems - Review of Systems Systems not reviewed;Unavailable: Acuity of Condition - Constitutional Constitutional: Chills, Fever, Malaise, Weakness - EENT Eyes: absent: Blurred Vision, Change in Vision Ears: absent: Decreased Hearing, Ear Discharge Nose/Mouth/Throat: absent: Nasal Congestion, Nasal Discharge - Breasts Breasts: absent: Change in Shape, Pain, Skin Changes - Cardiovascular Cardiovascular: absent: Chest Pain, Dyspnea - Respiratory Respiratory: absent: Cough, Dyspnea - Gastrointestinal Gastrointestinal: absent: Diarrhea, Dysphagia, Vomiting - Genitourinary Genitourinary: absent: Change in Urinary Stream, Dysuria - Musculoskeletal Musculoskeletal: absent: Arthralgias, Atrophy, Back Pain - Integumentary Integumentary: absent: Acne, Alopecia - Neurological Neurological: Weakness. absent: Numbness, Focal Weakness - Psychiatric Psychiatric: absent: Confusion, Depression, Homicidal Ideation - Hematologic/Lymphatic Hematologic: absent: Easy Bleeding, Easy Bruising Past Patient History - Past Medical History & Family History Past Medical History?: Yes - Past Social History Smoking Status: Never Smoked - CARDIAC Hx Cardiac Disorders: No - PULMONARY Hx Respiratory Disorders: No - NEUROLOGICAL Hx Neurological Disorder: No - HEENT Hx HEENT Problems: Yes Hx Cataracts: Yes - RENAL Hx Chronic Kidney Disease: Yes Hx Kidney Stones: Yes - ENDOCRINE/METABOLIC Hx Endocrine Disorders: No - HEMATOLOGICAL/ONCOLOGICAL Hx Blood Disorders: No Hx Blood Transfusions: Yes Hx Blood Transfusion Reaction: No - INTEGUMENTARY Hx Dermatological Problems: No - MUSCULOSKELETAL/RHEUMATOLOGICAL Hx Falls: No - GASTROINTESTINAL Hx Gastrointestinal Disorders: Yes (HX GI BLEEDING DUE TO NAPROSYN) - GENITOURINARY/GYNECOLOGICAL Hx Genitourinary Disorders: No - PSYCHIATRIC Hx Substance Use: No - SURGICAL HISTORY Hx Surgeries: Yes Hx Cataract Extraction: Yes (BILAT IOL) Hx Section: Yes (26 years ago) Other/Comment: CYSTO STENT INSERTION - ANESTHESIA Hx Anesthesia: Yes Hx Anesthesia Reactions: No Hx Malignant Hyperthermia: No Meds Allergies/Adverse Reactions: Allergies Allergy/AdvReac Type Severity Reaction Status Date / Time No Known Allergies Allergy Unverified 01/02/15 17:31 - Medications Medications: Current Medications Enoxaparin Sodium (Lovenox) 40 mg SC DAILY [facility] Last Admin: 05/31/17 09:17 Dose: 40 mg Azithromycin 500 mg/ Sodium (Chloride) 250 mls @ 250 mls/hr IVPB DAILY [facility] Last Admin: 05/31/17 09:20 Dose: 250 mls/hr Ceftriaxone Sodium (Rocephin Iv 1 Gm Duplex) 50 mls @ 100 mls/hr IVPB DAILY [facility] Last Admin: 05/31/17 09:18 Dose: 100 mls/hr Dextrose/Sodium Chloride (Dextrose 5%/0.45% Ns 1000 Ml) 1,000 mls @ 100 mls/hr IV .Q10H [facility] Last Admin: 05/31/17 06:33 Dose: 100 mls/hr Pantoprazole Sodium (Protonix Ec Tab) 40 mg PO DAILY [facility] Last Admin: 05/31/17 09:16 Dose: 40 mg Pneumococcal Polyvalent Vaccine (Pneumovax 23 Vaccine) 0.5 ml IM .ONCE ONE Stop: 06/02/17 10:01 Physical Exam - Constitutional Appears: Well - Head Exam Head Exam: ATRAUMATIC, NORMAL INSPECTION, NORMOCEPHALIC - Eye Exam Eye Exam: EOMI, Normal appearance - ENT Exam ENT Exam: Mucous Membranes Moist, Normal Exam - Neck Exam Neck exam: Positive for: Normal Inspection - Respiratory Exam Respiratory Exam: Clear to Auscultation Bilateral, NORMAL BREATHING PATTERN. absent: Wheezes - Cardiovascular Exam Cardiovascular Exam: REGULAR RHYTHM, +S1, +S2 - GI/Abdominal Exam GI & Abdominal Exam: Hypoactive Bowel Sounds, Normal Bowel Sounds, Soft - Back Exam Back exam: NORMAL INSPECTION - Neurological Exam Neurological exam: Alert, CN II-XII Intact, Oriented x3 - Psychiatric Exam Psychiatric exam: Normal Affect, Normal Mood - Skin Skin Exam: Erythema (facial), Normal Color, Warm Results - Vital Signs Recent Vital Signs: Last Vital Signs Temp 97.7 F 05/31/17 08:47 Pulse 97 H 05/31/17 08:47 Resp 20 05/31/17 08:47 BP 133/72 05/31/17 08:47 Pulse Ox 95 05/31/17 08:47 - Labs Result Diagrams: 05/30/17 10:51 05/30/17 10:51 Assessment & Plan - Assessment and Plan (Free Text) Assessment: 67 year old female with past medical history of dyslipidemia and nephrolithiasis presenting with nausea, vomiting, and fever foudn to have suspect pericardial effusion on CT abdomen/pelvis. Plan: 1. Pericardial Effusion r/o CHF vs Pulmonary etiology -Patient has no complaints of shortness of breath w/ daily life activity nor while sleeping -CT abdomen/pelvis reveals suspect pericardial effusion -EKG reveals normal sinus rhythm -Echo ordered; results pending -BNP ordered; results pending -Troponins ordered; results pending -Lipid panel and HgA1c ordered results pending -Patient recently diagnosed with influenza, r/o pericardial effusion due to pneumonia; ID on board <[email or web address] - Last Filed: 06/01/17 09:26> Meds - Medications Medications: Current Medications Aspirin (Ecotrin) 81 mg PO DAILY [facility] Last Admin: 05/31/17 21:36 Dose: 81 mg Enoxaparin Sodium (Lovenox) 40 mg SC DAILY [facility] Last Admin: 05/31/17 09:17 Dose: 40 mg Furosemide (Lasix) 40 mg IVP BID [facility] Azithromycin 500 mg/ Sodium (Chloride) 250 mls @ 250 mls/hr IVPB DAILY [facility] Last Admin: 05/31/17 09:20 Dose: 250 mls/hr Ceftriaxone Sodium (Rocephin Iv 1 Gm Duplex) 50 mls @ 100 mls/hr IVPB DAILY [facility] Last Admin: 05/31/17 09:18 Dose: 100 mls/hr Dextrose/Sodium Chloride (Dextrose 5%/0.45% Ns 1000 Ml) 1,000 mls @ 100 mls/hr IV .Q10H [facility] Last Admin: 06/01/17 08:23 Dose: 100 mls/hr Pantoprazole Sodium (Protonix Ec Tab) 40 mg PO DAILY [facility] Last Admin: 05/31/17 09:16 Dose: 40 mg Pneumococcal Polyvalent Vaccine (Pneumovax 23 Vaccine) 0.5 ml IM .ONCE ONE Stop: 06/02/17 10:01 Rosuvastatin Calcium (Crestor) 10 mg PO HS [facility] Last Admin: 05/31/17 21:36 Dose: 10 mg Results - Vital Signs Recent Vital Signs: Last Vital Signs Temp 98 F 06/01/17 07:59 Pulse 77 06/01/17 07:59 Resp 20 06/01/17 07:59 BP 109/71 06/01/17 07:59 Pulse Ox 96 06/01/17 07:59 - Labs Result Diagrams: 05/30/17 10:51 05/30/17 10:51 Labs: Laboratory Results - last 24 hr 05/31/17 05/31/17 05/31/17 11:48 11:48 20:05 Hemoglobin A1c 5.6 Troponin I 0.0180 0.0150 NT-Pro-B Natriuret Pep 1220 H Triglycerides 160 H Cholesterol 113 LDL Cholesterol Direct 51 HDL Cholesterol 17 L Assessment & Plan (1) Pericardial effusion Status: Acute (2) Hypertension Status: Acute Attending/Attestation - Attestation I have personally seen and examined this patient.: Yes I have fully participated in the care of the patient.: Yes I have reviewed all pertinent clinical information: Yes Notes (Text): 06/01/17 09:25 67 year old female with hx of dyslipidemia presenting with sx of viral gastroenteritis ( N/V and abdominal pain) , CT thorax showed pericardial effusion for which cardiology was consulted. At baseline denies any ischemic sx, had URI sx 2 weeks ago. Denies any SOB BNP elevated Echo pending further titration based on results of echo
[2017-05-31 12:57] LABS: TROPONIN I 0.018 ng/mL (0.00-0.120)
--- NOTE | 2017-05-31 17:50 | CARD ---
APPROVED REPORT EKG Measurement Heart [id number] <Conclusion> Normal sinus rhythm Possible Left atrial enlargement Borderline ECG
--- NOTE | 2017-05-31 20:08 | CP.PCM.PN ---
Subjective - Date & Time of Evaluation Date of Evaluation: 05/31/17 Time of Evaluation: 09:40 - Subjective Subjective: clinically same Objective - Vital Signs/Intake and Output Vital Signs (last 24 hours): Temp Pulse Resp BP Pulse Ox 98.1 F 83 20 104/66 96 05/31/17 16:07 05/31/17 16:07 05/31/17 16:07 05/31/17 16:07 05/31/17 16:07 Intake and Output: 05/31/17 06/01/17 18:59 06:59 Intake Total 1350 Balance 1350 - Medications Medications: Current Medications Aspirin (Ecotrin) 81 mg PO DAILY [facility] Enoxaparin Sodium (Lovenox) 40 mg SC DAILY [facility] Last Admin: 05/31/17 09:17 Dose: 40 mg Furosemide (Lasix) 40 mg IVP DAILY [facility] Azithromycin 500 mg/ Sodium (Chloride) 250 mls @ 250 mls/hr IVPB DAILY [facility] Last Admin: 05/31/17 09:20 Dose: 250 mls/hr Ceftriaxone Sodium (Rocephin Iv 1 Gm Duplex) 50 mls @ 100 mls/hr IVPB DAILY [facility] Last Admin: 05/31/17 09:18 Dose: 100 mls/hr Dextrose/Sodium Chloride (Dextrose 5%/0.45% Ns 1000 Ml) 1,000 mls @ 100 mls/hr IV .Q10H [facility] Last Admin: 05/31/17 12:44 Dose: Not Given Pantoprazole Sodium (Protonix Ec Tab) 40 mg PO DAILY [facility] Last Admin: 05/31/17 09:16 Dose: 40 mg Pneumococcal Polyvalent Vaccine (Pneumovax 23 Vaccine) 0.5 ml IM .ONCE ONE Stop: 06/02/17 10:01 Rosuvastatin Calcium (Crestor) 10 mg PO [facility] - Labs Labs: 05/30/17 10:51 05/30/17 10:51 - Constitutional Appears: Well - Head Exam Head Exam: ATRAUMATIC, NORMAL INSPECTION, NORMOCEPHALIC - Eye Exam Eye Exam: EOMI, Normal appearance, PERRL Pupil Exam: NORMAL ACCOMODATION, PERRL - ENT Exam ENT Exam: Mucous Membranes Moist, Normal Exam - Neck Exam Neck Exam: Full ROM, Normal Inspection. absent: Lymphadenopathy - Respiratory Exam Respiratory Exam: Clear to Ausculation Bilateral, NORMAL BREATHING PATTERN - Cardiovascular Exam Cardiovascular Exam: REGULAR RHYTHM, +S1, +S2. absent: Murmur - GI/Abdominal Exam GI & Abdominal Exam: Soft, Normal Bowel Sounds. absent: Tenderness - Rectal Exam Rectal Exam: Deferred - Extremities Exam Extremities Exam: Full ROM, Normal Capillary Refill, Normal Inspection. absent : Joint Swelling, Pedal Edema - Back Exam Back Exam: NORMAL INSPECTION Assessment and Plan (1) Pericardial effusion Status: Acute (2) SIRS (systemic inflammatory response syndrome) Status: Acute (3) Viral syndrome Status: Acute (4) Calculus of proximal left ureter Status: Acute (5) Elevated BP Status: Acute (6) Hypertension Status: Acute (7) Intractable pain Status: Acute (8) Nausea & vomiting Status: Acute (9) Prophylactic measure Status: Acute (10) Renal colic Status: Acute (11) Renal colic on left side Status: Acute (12) Rheumatoid arthritis Status: Acute (13) UTI (urinary tract infection) Status: Acute - Assessment and Plan (Free Text) Plan: Patient examined. Echocardiogram was suggestive of EF of 60-65%. Diastolic dysfunction present. Mild MR present. EKG suggestive of left atrial enlargement. CT scan abdomen plus pelvis suggestive of mild hepatosplenomegaly trace pericardial effusion scattered colonic diverticula along the distal segment and sigmoid colon Continue ceftriaxone and azithromycin. Continue aspirin. Continue supportive care.
[2017-06-01] MEDS: Dextrose 5%/0.45% NS 1,000 ML IV SCH ×3 (08:23→23:38)
--- NOTE | 2017-06-01 08:45 | CP.PCM.PN ---
Subjective - Date & Time of Evaluation Date of Evaluation: 06/01/17 Time of Evaluation: 08:15 - Subjective Subjective: Patient seen and examined at bedside. Patient states her concern for her heart. Patient denies shortness of breath, chest pain, palpitations, abdominal pain, nausea, vomiting, diarrhea. Patient mentions she has noted abdominal swelling despite losing weight. Objective - Vital Signs/Intake and Output Vital Signs (last 24 hours): Temp Pulse Resp BP Pulse Ox 98 F 77 20 109/71 96 06/01/17 07:59 06/01/17 07:59 06/01/17 07:59 06/01/17 07:59 06/01/17 07:59 - Medications Medications: Current Medications Aspirin (Ecotrin) 81 mg PO DAILY [facility] Last Admin: 05/31/17 21:36 Dose: 81 mg Enoxaparin Sodium (Lovenox) 40 mg SC DAILY [facility] Last Admin: 05/31/17 09:17 Dose: 40 mg Furosemide (Lasix) 40 mg IVP DAILY [facility] Last Admin: 05/31/17 21:36 Dose: 40 mg Azithromycin 500 mg/ Sodium (Chloride) 250 mls @ 250 mls/hr IVPB DAILY [facility] Last Admin: 05/31/17 09:20 Dose: 250 mls/hr Ceftriaxone Sodium (Rocephin Iv 1 Gm Duplex) 50 mls @ 100 mls/hr IVPB DAILY [facility] Last Admin: 05/31/17 09:18 Dose: 100 mls/hr Dextrose/Sodium Chloride (Dextrose 5%/0.45% Ns 1000 Ml) 1,000 mls @ 100 mls/hr IV .Q10H [facility] Last Admin: 06/01/17 08:23 Dose: 100 mls/hr Pantoprazole Sodium (Protonix Ec Tab) 40 mg PO DAILY [facility] Last Admin: 05/31/17 09:16 Dose: 40 mg Pneumococcal Polyvalent Vaccine (Pneumovax 23 Vaccine) 0.5 ml IM .ONCE ONE Stop: 06/02/17 10:01 Rosuvastatin Calcium (Crestor) 10 mg PO HS [facility] Last Admin: 05/31/17 21:36 Dose: 10 mg - Labs Labs: 05/30/17 10:51 05/30/17 10:51 - Constitutional Appears: Non-toxic, No Acute Distress - Head Exam Head Exam: ATRAUMATIC, NORMAL INSPECTION, NORMOCEPHALIC - Eye Exam Eye Exam: EOMI, Normal appearance - ENT Exam ENT Exam: Mucous Membranes Moist, Normal Exam - Neck Exam Neck Exam: Normal Inspection - Respiratory Exam Respiratory Exam: Clear to Ausculation Bilateral, NORMAL BREATHING PATTERN. absent: Rhonchi, Wheezes - Cardiovascular Exam Cardiovascular Exam: REGULAR RHYTHM, +S1, +S2 - GI/Abdominal Exam GI & Abdominal Exam: Soft, Normal Bowel Sounds - Extremities Exam Extremities Exam: Pedal Edema (+1) - Neurological Exam Neurological Exam: Alert, Awake, Oriented x3 - Psychiatric Exam Psychiatric exam: Anxious, Normal Affect - Skin Skin Exam: Normal Color, Warm Assessment and Plan - Assessment and Plan (Free Text) Assessment: 67 year old female with past medical history of dyslipidemia and nephrolithiasis presenting with nausea, vomiting, and fever foudn to have suspect pericardial effusion on CT abdomen/pelvis. Plan: 1. Pericardial Effusion r/o CHF vs Pulmonary etiology -Patient has no complaints of shortness of breath w/ daily life activity nor while sleeping -CT abdomen/pelvis reveals suspect pericardial effusion -EKG reveals normal sinus rhythm -Echo ordered; results pending -BNP ordered; 1220 -Troponins ordered; first set 0.018, second set 0.015 -Lipid panel reveals: Triglycerides 160, cholesterol 113, LDL 51,HDL 17, -HgA1c 5.6% -Patient recently diagnosed with influenza, r/o pericardial effusion due to pneumonia; ID on board -CRP ordered; results pending -ESR ordered; results pending
[2017-06-01] MEDS: Azithromycin 500 MG in Sodium Chloride 0.9% 250 ML IVPB SCH (11:23)
[2017-06-01] MEDS: cefTRIAXone IV 1 gm in Dextros 50 ML IVPB SCH (11:23)
[2017-06-01] MEDS: Enoxaparin 40 mg Syringe SC SCH (11:24)
[2017-06-01] MEDS: Pantoprazole 40 mg EC Tab PO SCH (11:24)
--- NOTE | 2017-06-01 12:09 | CP.PCM.PN ---
Subjective - Date & Time of Evaluation Date of Evaluation: 06/01/17 Time of Evaluation: 10:00 - Subjective Subjective: improved afeb alert less pain Objective - Vital Signs/Intake and Output Vital Signs (last 24 hours): Temp Pulse Resp BP Pulse Ox 98 F 77 20 138/86 96 06/01/17 07:59 06/01/17 07:59 06/01/17 07:59 06/01/17 11:25 06/01/17 07:59 - Medications Medications: Current Medications Aspirin (Ecotrin) 81 mg PO DAILY [facility] Last Admin: 06/01/17 11:24 Dose: 81 mg Enoxaparin Sodium (Lovenox) 40 mg SC DAILY [facility] Last Admin: 06/01/17 11:24 Dose: 40 mg Furosemide (Lasix) 40 mg IVP BID [facility] Last Admin: 06/01/17 11:25 Dose: 40 mg Azithromycin 500 mg/ Sodium (Chloride) 250 mls @ 250 mls/hr IVPB DAILY [facility] Last Admin: 06/01/17 11:23 Dose: 250 mls/hr Ceftriaxone Sodium (Rocephin Iv 1 Gm Duplex) 50 mls @ 100 mls/hr IVPB DAILY [facility] Last Admin: 06/01/17 11:23 Dose: 100 mls/hr Dextrose/Sodium Chloride (Dextrose 5%/0.45% Ns 1000 Ml) 1,000 mls @ 100 mls/hr IV .Q10H [facility] Last Admin: 06/01/17 08:23 Dose: 100 mls/hr Pantoprazole Sodium (Protonix Ec Tab) 40 mg PO DAILY [facility] Last Admin: 06/01/17 11:24 Dose: 40 mg Pneumococcal Polyvalent Vaccine (Pneumovax 23 Vaccine) 0.5 ml IM .ONCE ONE Stop: 06/02/17 10:01 Rosuvastatin Calcium (Crestor) 10 mg PO HS [facility] Last Admin: 05/31/17 21:36 Dose: 10 mg - Labs Labs: 05/30/17 10:51 05/30/17 10:51 - Constitutional Appears: Non-toxic, Chronically Ill - Head Exam Head Exam: NORMOCEPHALIC - Eye Exam Eye Exam: PERRL - ENT Exam ENT Exam: Mucous Membranes Dry - Neck Exam Neck Exam: absent: Lymphadenopathy - Respiratory Exam Respiratory Exam: Decreased Breath Sounds - Cardiovascular Exam Cardiovascular Exam: REGULAR RHYTHM - GI/Abdominal Exam GI & Abdominal Exam: Distended, Soft - Rectal Exam Rectal Exam: Deferred - Exam Exam: NORMAL INSPECTION - Extremities Exam Extremities Exam: absent: Pedal Edema - Back Exam Back Exam: absent: CVA tenderness (L), CVA tenderness (R), NORMAL INSPECTION - Neurological Exam Neurological Exam: Alert, Awake, Oriented x3 Neuro motor strength exam: Left Upper Extremity: 5, Right Upper Extremity: 5, Left Lower Extremity: 5, Right Lower Extremity: 5 - Psychiatric Exam Psychiatric exam: Normal Mood - Skin Skin Exam: Dry Assessment and Plan (1) Viral syndrome Status: Acute (2) UTI (urinary tract infection) Status: Acute (3) SIRS (systemic inflammatory response syndrome) Status: Acute
[2017-06-01 12:28] LABS: BASO # 0.1 K/uL (0.0-0.2); BASO % 0.7 % (0.0-2.0); EOS # 0.4 K/uL (0.0-0.7); EOS % 5.3 % (0.0-4.0); HEMATOCRIT 33.2 % (34.0-47.0); LYMPH # 1.6 K/uL (1.0-4.3); LYMPH % 22.3 % (20.0-40.0); MEAN CORPUSCULAR HEMOGLOBIN 24.4 pg (27.0-31.0); MEAN CORPUSCULAR HGB CONC 32.5 g/dL (33.0-37.0); MONO # 0.6 K/uL (0.0-0.8); MONO % 8.9 % (0.0-10.0); NRBC % 0.5 % (0.0-2.0); RED CELL DISTRIBUTION WIDTH 15.4 % (11.5-14.5); WHITE BLOOD COUNT 7.3 K/uL (4.8-10.8)
[2017-06-01 12:59] LABS: ALB/GLOB RATIO 1.1 (1.0-2.1); ALKALINE PHOSPHATASE 106 U/L (38-126); ALT/SGPT 45 U/L (9-52); AST/SGOT 51 U/L (14-36); BILIRUBIN,TOTAL 0.7 mg/dL (0.2-1.3); BLOOD UREA NITROGEN 9 mg/dL (7-17); CALCIUM 8.2 mg/dl (8.6-10.4); CARBON DIOXIDE 26 mmol/L (22-30); CHLORIDE 97 mmol/L (98-107); GFR AFRICAN-AMERICAN > 60; GLUCOSE,RANDOM 101 mg/dL (65-105); SODIUM 136 mmol/L (132-148); TOTAL PROTEIN 7.3 g/dL (6.3-8.3)
--- NOTE | 2017-06-01 16:11 | CP.PCM.PN ---
Subjective - Date & Time of Evaluation Date of Evaluation: 06/01/17 Time of Evaluation: 09:20 - Subjective Subjective: clinically same Objective - Vital Signs/Intake and Output Vital Signs (last 24 hours): Temp Pulse Resp BP Pulse Ox 98 F 77 20 138/86 96 06/01/17 07:59 06/01/17 07:59 06/01/17 07:59 06/01/17 11:25 06/01/17 07:59 - Medications Medications: Current Medications Aspirin (Ecotrin) 81 mg PO DAILY [facility] Last Admin: 06/01/17 11:24 Dose: 81 mg Enoxaparin Sodium (Lovenox) 40 mg SC DAILY [facility] Last Admin: 06/01/17 11:24 Dose: 40 mg Furosemide (Lasix) 40 mg IVP BID [facility] Last Admin: 06/01/17 11:25 Dose: 40 mg Azithromycin 500 mg/ Sodium (Chloride) 250 mls @ 250 mls/hr IVPB DAILY [facility] Last Admin: 06/01/17 11:23 Dose: 250 mls/hr Ceftriaxone Sodium (Rocephin Iv 1 Gm Duplex) 50 mls @ 100 mls/hr IVPB DAILY [facility] Last Admin: 06/01/17 11:23 Dose: 100 mls/hr Dextrose/Sodium Chloride (Dextrose 5%/0.45% Ns 1000 Ml) 1,000 mls @ 100 mls/hr IV .Q10H [facility] Last Admin: 06/01/17 08:23 Dose: 100 mls/hr Pantoprazole Sodium (Protonix Ec Tab) 40 mg PO DAILY [facility] Last Admin: 06/01/17 11:24 Dose: 40 mg Pneumococcal Polyvalent Vaccine (Pneumovax 23 Vaccine) 0.5 ml IM .ONCE ONE Stop: 06/02/17 10:01 Rosuvastatin Calcium (Crestor) 10 mg PO HS [facility] Last Admin: 05/31/17 21:36 Dose: 10 mg - Labs Labs: 06/01/17 12:14 06/01/17 12:14 - Constitutional Appears: Well - Head Exam Head Exam: ATRAUMATIC, NORMAL INSPECTION, NORMOCEPHALIC - Eye Exam Eye Exam: EOMI, Normal appearance, PERRL Pupil Exam: NORMAL ACCOMODATION, PERRL - ENT Exam ENT Exam: Mucous Membranes Moist, Normal Exam - Neck Exam Neck Exam: Full ROM, Normal Inspection. absent: Lymphadenopathy - Respiratory Exam Respiratory Exam: Clear to Ausculation Bilateral, NORMAL BREATHING PATTERN - Cardiovascular Exam Cardiovascular Exam: REGULAR RHYTHM, +S1, +S2. absent: Murmur - GI/Abdominal Exam GI & Abdominal Exam: Soft, Normal Bowel Sounds. absent: Tenderness - Rectal Exam Rectal Exam: Deferred - Extremities Exam Extremities Exam: Full ROM, Normal Capillary Refill, Normal Inspection. absent : Joint Swelling, Pedal Edema - Back Exam Back Exam: NORMAL INSPECTION Assessment and Plan (1) Pericardial effusion Status: Acute (2) SIRS (systemic inflammatory response syndrome) Status: Acute (3) Viral syndrome Status: Acute (4) Calculus of proximal left ureter Status: Acute (5) Elevated BP Status: Acute (6) Hypertension Status: Acute (7) Intractable pain Status: Acute (8) Nausea & vomiting Status: Acute (9) Prophylactic measure Status: Acute (10) Renal colic Status: Acute (11) Renal colic on left side Status: Acute (12) Rheumatoid arthritis Status: Acute (13) UTI (urinary tract infection) Status: Acute - Assessment and Plan (Free Text) Plan: Patient examined. Patient better. Continue azithromycin and ceftriaxone. Continue aspirin. Continue supportive care.
[2017-06-01] MEDS ORDERED: Potassium Chloride 20 mEq ER Tab PO ONE (18:47)
--- NOTE | 2017-06-01 22:00 | CARD ---
APPROVED REPORT EXAM: Two-dimensional and M-mode echocardiogram with Doppler and color Doppler. Other Information Quality : GoodRhythm : NSR INDICATION Pericardial Effusion FEVER RISK FACTORS Hypertension M-Mode DIMENSIONS RVDd2.41 (2.1-3.2cm)Left Atrium (MM)3.19 (2.5-4.0cm) IVSd0.72 (0.7-1.1cm)Aortic Root3.09 (2.2-3.7cm) LVDd5.27 (4.0-5.6cm)Aortic Cusp Exc.2.11 (1.5-2.0cm) PWd0.72 (0.7-1.1cm)FS (%) 33 % LVDs3.55 (2.0-3.8cm)LVEF (%)61 (>50%) Aortic Valve AI P 1/2 [id number] Mitral Valve MV E Esgerjri885.4cm/sMV A Wspnvuww222.7cm/sE/A ratio0.9 TDI E/Lateral E'0.0E/Medial E'0.0 Tricuspid Valve TR Peak Qlvzvplj698ow/sTR Peak Gr.78cdIjLQID20nuVr LEFT VENTRICLE The left ventricle is normal size. There is normal left ventricular wall thickness. Left ventricle systolic function is normal. The Ejection Fraction is 60-65%. There is normal LV segmental wall motion. Tissue Doppler imaging reveals abnormal left ventricular diastolic dysfunction. RIGHT VENTRICLE The right ventricle is normal size. There is normal right ventricular wall thickness. The right ventricular systolic function is normal. ATRIA The left atrium size is normal. The right atrium size is normal. The interatrial septum is intact with no evidence for an atrial septal defect. AORTIC VALVE The aortic valve is normal in structure. There is mild aortic regurgitation. There is no aortic valvular stenosis. MITRAL VALVE The mitral valve is normal in structure. There is no evidence of mitral valve prolapse. There is no mitral valve stenosis. Mitral regurgitation is moderate. TRICUSPID VALVE The tricuspid valve is normal in structure. There is mild tricuspid regurgitation. Right ventricular systolic pressure is estimated at 30-40 mmHg. There is mild pulmonary hypertension. There is no tricuspid valve prolapse or vegetation. PULMONIC VALVE The pulmonic valve is not well visualized. There is mild pulmonic valvular regurgitation. GREAT VESSELS The aortic root is normal in size. PERICARDIAL EFFUSION There is no significant pericardial effusion. <Conclusion> Left ventricle systolic function is normal. The Ejection Fraction is 60-65%. Diastolic dysfunction. There is mild aortic regurgitation. Mitral regurgitation is moderate. There is mild tricuspid regurgitation. There is mild pulmonary hypertension. There is mild pulmonic valvular regurgitation.
[2017-06-02] MEDS: Dextrose 5%/0.45% NS 1,000 ML IV SCH ×3 (05:45→12:37)
[2017-06-02 08:36] VITALS: PULSE 82
--- NOTE | 2017-06-02 08:58 | CP.PCM.PN ---
Subjective - Date & Time of Evaluation Date of Evaluation: 06/02/17 Time of Evaluation: 06:30 - Subjective Subjective: Patient seen and examined at bedside in no acute distress. Patient states she has no complaints overnight. Explained to patient results of echocardiogram also discussed with patient's daughter. Patient denies shortness of breath, chest pain, palpitations, abdominal pain, cough, fever, chills, nausea, vomiting , diarrhea. Objective - Vital Signs/Intake and Output Vital Signs (last 24 hours): Temp Pulse Resp BP Pulse Ox 97.5 F L 82 20 101/65 96 06/02/17 08:30 06/02/17 08:30 06/02/17 08:30 06/02/17 08:30 06/02/17 08:30 Intake and Output: 06/02/17 06/02/17 06:59 18:59 Intake Total 1600 Balance 1600 - Medications Medications: Current Medications Aspirin (Ecotrin) 81 mg PO DAILY [facility] Last Admin: 06/01/17 11:24 Dose: 81 mg Enoxaparin Sodium (Lovenox) 40 mg SC DAILY [facility] Last Admin: 06/01/17 11:24 Dose: 40 mg Furosemide (Lasix) 40 mg IVP BID [facility] Last Admin: 06/01/17 17:45 Dose: 40 mg Azithromycin 500 mg/ Sodium (Chloride) 250 mls @ 250 mls/hr IVPB DAILY [facility] Last Admin: 06/01/17 11:23 Dose: 250 mls/hr Ceftriaxone Sodium (Rocephin Iv 1 Gm Duplex) 50 mls @ 100 mls/hr IVPB DAILY [facility] Last Admin: 06/01/17 11:23 Dose: 100 mls/hr Dextrose/Sodium Chloride (Dextrose 5%/0.45% Ns 1000 Ml) 1,000 mls @ 100 mls/hr IV .Q10H [facility] Last Admin: 06/02/17 05:45 Dose: Not Given Pantoprazole Sodium (Protonix Ec Tab) 40 mg PO DAILY [facility] Last Admin: 06/01/17 11:24 Dose: 40 mg Pneumococcal Polyvalent Vaccine (Pneumovax 23 Vaccine) 0.5 ml IM .ONCE ONE Stop: 06/02/17 10:01 Rosuvastatin Calcium (Crestor) 10 mg PO HS [facility] Last Admin: 06/01/17 21:17 Dose: 10 mg - Labs Labs: 06/01/17 12:14 06/01/17 12:14 - Constitutional Appears: Non-toxic, No Acute Distress - Head Exam Head Exam: ATRAUMATIC, NORMAL INSPECTION, NORMOCEPHALIC - Eye Exam Eye Exam: EOMI, Normal appearance - ENT Exam ENT Exam: Mucous Membranes Moist, Normal Exam - Neck Exam Neck Exam: Full ROM - Respiratory Exam Respiratory Exam: Clear to Ausculation Bilateral, NORMAL BREATHING PATTERN. absent: Rhonchi, Wheezes - Cardiovascular Exam Cardiovascular Exam: REGULAR RHYTHM, +S1, +S2 - GI/Abdominal Exam GI & Abdominal Exam: Soft, Normal Bowel Sounds - Extremities Exam Extremities Exam: Tenderness. absent: Pedal Edema - Neurological Exam Neurological Exam: Alert, Awake, Oriented x3 - Psychiatric Exam Psychiatric exam: Normal Affect, Normal Mood - Skin Skin Exam: Normal Color, Warm Assessment and Plan - Assessment and Plan (Free Text) Assessment: 67 year old female with past medical history of dyslipidemia and nephrolithiasis presenting with nausea, vomiting, and fever foudn to have suspect pericardial effusion on CT abdomen/pelvis. Plan: 1. Pericardial Effusion r/o CHF vs Pulmonary etiology -Patient has no complaints of shortness of breath w/ daily life activity nor while sleeping -CT abdomen/pelvis reveals suspect pericardial effusion -EKG reveals normal sinus rhythm -Echo ordered; reveals diastolic dysfunction, regurgitation in aortic, mitral, tricuspid, pulmonic valves as well as pulmonary htn -BNP 1220 on admission. Reordered;652 -Troponins ordered; first set 0.018, second set 0.015 -Lipid panel reveals: Triglycerides 160, cholesterol 113, LDL 51,HDL 17, -HgA1c 5.6% -Patient recently diagnosed with influenza, r/o pericardial effusion due to pneumonia; ID on board -CRP >15 -ESR 97 -Will possibly do exercise stress test to r/o CAD etiology of HFpEF since patient has does not have htn. Will discuss with Dr. Robins
[2017-06-02 09:04] LABS: BASO # 0.1 K/uL (0.0-0.2); BASO % 0.8 % (0.0-2.0); EOS # 0.5 K/uL (0.0-0.7); HEMATOCRIT 34.2 % (34.0-47.0); LYMPH # 2.6 K/uL (1.0-4.3); LYMPH % 29.5 % (20.0-40.0); MEAN CELL VOLUME 75.7 fL (81.0-99.0); MEAN CORPUSCULAR HEMOGLOBIN 24.1 pg (27.0-31.0); MEAN CORPUSCULAR HGB CONC 31.9 g/dL (33.0-37.0); MEAN PLATELET VOLUME 8.9 fL (7.2-11.7); MONO # 0.6 K/uL (0.0-0.8); MONO % 7.2 % (0.0-10.0); NRBC % 0.4 % (0.0-2.0); RED CELL DISTRIBUTION WIDTH 15.7 % (11.5-14.5); WHITE BLOOD COUNT 8.8 K/uL (4.8-10.8)
[2017-06-02 09:19] LABS: ALKALINE PHOSPHATASE 105 U/L (38-126); ALT/SGPT 43 U/L (9-52); AST/SGOT 33 U/L (14-36); BILIRUBIN,TOTAL 0.6 mg/dL (0.2-1.3); BLOOD UREA NITROGEN 12 mg/dL (7-17); CARBON DIOXIDE 29 mmol/L (22-30); CHLORIDE 97 mmol/L (98-107); GFR AFRICAN-AMERICAN > 60; GLUCOSE,RANDOM 89 mg/dL (65-105); POTASSIUM 3.3 mmol/L (3.6-5.2); SODIUM 136 mmol/L (132-148); TOTAL PROTEIN 7.4 g/dL (6.3-8.3)
[2017-06-02] MEDS ORDERED: Pneumococcal 23-Valent Vaccine IM ONE (10:00)
[2017-06-02] MEDS ORDERED: Influenza Vaccine 60 mcg/0.5 mL SYR (4YR UP) IM ONE (10:00)
[2017-06-02] MEDS: Pantoprazole 40 mg EC Tab PO SCH (10:35)
[2017-06-02] MEDS: Azithromycin 500 MG in Sodium Chloride 0.9% 250 ML IVPB SCH (10:36)
[2017-06-02] MEDS: Enoxaparin 40 mg Syringe SC SCH (10:36)
[2017-06-02] MEDS: cefTRIAXone IV 1 gm in Dextros 50 ML IVPB SCH (10:37)
[2017-06-02] MEDS ORDERED: Potassium Chloride 20 mEq ER Tab PO ONE (15:03)
[2017-06-02 15:42] VITALS: BP 114/73; TEMP 97.8
--- NOTE | 2017-06-02 16:15 | CARD ---
APPROVED REPORT Protocol: TEODORO Test Type: Stress Nuclear Test Indications: PERICARDIAL EFFUSION Medications: LIST SCAN Medical History: PERICARDIAL EFFUSION,FEVER,HEPATOSPLENOMEGALY Target HR: 155 bpm Resting ECG: normal Resting Heart Rate: 107 bpm Resting Blood Pressure: 122/80mmHg submaximum (85%): 132 bpm TEST SUMMARY [id number]. EXERCISESTAGE 103:[id number]/80.0. EXERCISESTAGE 203:[id number]/80.0. EXERCISESTAGE 300:[id number]/.0. [id number]/80.0. POST EXERCISE Reason for Termination: Fatigue Target HR: Yes Max HR: 173 bpm 111% of Maximum Predicted HR: 155 bpm Exercise duration: 06:52 min:sec, 3 Stage Exercise capacity: 9.6METs Max Blood Pressure: 174/82mmHg Blood Pressure response to exercise: normal resting BP - appropriate response Heart Rate response to exercise: appropriate Chest Pain: No, none Angina index: 0 Arrhythmia: No, none ST Change: Yes, Depression upsloping Deviation: 0 mm EXAM: Myocardial Perfusion STRESS/REST Imaging Protocol The imaging protocol used to acquire images was Stress Tc-99m/rest Tc-99m 1 day Rest Spect myocardial perfusion imaging was performed in supine position 45 minutes following the injection of 27.8 mCi of Tc-99 Myoview. Gated Stress Spect was performed 45 minutes after intravenous 11.5 mCi Tc-99 Myoview injection. The images were gated to evaluate regional wall motion and calculate ventricular ejection fraction.Images were reconstructed using backfilter projection method in short horizontal and verticle long axis. Spect slices were generated. STRESS DATA EDV54.28aeYJ9.10L/min ESV13.00mlMyocardial Lyvn146.00g Pk. Fill Rate6.02EDV/sec EF76.00%Pk. Emptying Rate5.53ESV/sec 1/3 Pk. Filling Rate0.82EDV/secRegional WT score at stress:1.00 LV Time to Pk. Filling Rate:179.98msecRegional WM score at stress:0.00 LV Time to Pk. Ejection Rate:84.86msecSummed WT score at stress:5.00 Av. Heart Ewsl637.00bpmSummed WM score at stress:0.00 Study quality was fair. Left Ventricular size was Normal at Rest and Stress. Lung uptake was Normal. Left Ventricular ejection fraction is 76%. The rest and stress images show normal perfusion, normal contraction and thickening. LV Perf. Quant 17 Seg. SSS1.00 17 Seg. SRS0.00 17 Seg. SDS1.00 Stress Defect Extent (% LAD)0.00Rest Defect Extent (% LAD)0.00Rev. Defect Extent (% LAD)0.00 Stress Defect Extent (% LCX)0.00Rest Defect Extent (% LCX)0.00Rev. Defect Extent (% LCX)0.00 Stress Defect Extent (% RCA)0.00Rest Defect Extent (% RCA)0.00Rev. Defect Extent (% RCA)0.00 Stress Defect Extent (% MARÍA)0.00Rest Defect Extent (% MARÍA)0.00Rev. Defect Extent (% MARÍA)0.00 Other Information Quality:Good Overall Exercise Capacity: Normal IMPRESSION Normal Myocardial Perfusion exercise stress study Metabolism/Perfusion There are no defects. Conclusion 1. - Normal myocardial perfusion study with no evidence of ischemia 2. - Normal LVEF
--- NOTE | 2017-06-02 16:21 | CP.PCM.PN ---
Subjective - Date & Time of Evaluation Date of Evaluation: 06/02/17 Time of Evaluation: 08:00 - Subjective Subjective: cultures neg to follow with dr florence as out pt consider rheum eval Objective - Vital Signs/Intake and Output Vital Signs (last 24 hours): Temp Pulse Resp BP Pulse Ox 97.8 F 82 20 114/73 95 06/02/17 15:34 06/02/17 15:34 06/02/17 15:34 06/02/17 15:34 06/02/17 15:34 Intake and Output: 06/02/17 06/02/17 06:59 18:59 Intake Total 1600 Balance 1600 - Medications Medications: Current Medications Aspirin (Ecotrin) 81 mg PO DAILY [facility] Last Admin: 06/02/17 10:33 Dose: Not Given Enoxaparin Sodium (Lovenox) 40 mg SC DAILY [facility] Last Admin: 06/02/17 10:36 Dose: 40 mg Furosemide (Lasix) 40 mg IVP BID [facility] Last Admin: 06/02/17 10:35 Dose: 40 mg Azithromycin 500 mg/ Sodium (Chloride) 250 mls @ 250 mls/hr IVPB DAILY [facility] Last Admin: 06/02/17 10:36 Dose: 250 mls/hr Ceftriaxone Sodium (Rocephin Iv 1 Gm Duplex) 50 mls @ 100 mls/hr IVPB DAILY [facility] Last Admin: 06/02/17 10:37 Dose: 100 mls/hr Dextrose/Sodium Chloride (Dextrose 5%/0.45% Ns 1000 Ml) 1,000 mls @ 100 mls/hr IV .Q10H [facility] Last Admin: 06/02/17 12:37 Dose: Not Given Pantoprazole Sodium (Protonix Ec Tab) 40 mg PO DAILY [facility] Last Admin: 06/02/17 10:35 Dose: Not Given Potassium Chloride (K-Dur 20 Meq Er Tab) 40 meq PO ONCE ONE Stop: 06/03/17 12:37 Rosuvastatin Calcium (Crestor) 10 mg PO [facility] Last Admin: 06/01/17 21:17 Dose: 10 mg - Labs Labs: 06/02/17 08:51 06/02/17 08:51 - Constitutional Appears: Non-toxic, Chronically Ill - Head Exam Head Exam: NORMOCEPHALIC - Eye Exam Eye Exam: PERRL - ENT Exam ENT Exam: Mucous Membranes Dry - Neck Exam Neck Exam: absent: Lymphadenopathy - Respiratory Exam Respiratory Exam: Decreased Breath Sounds - Cardiovascular Exam Cardiovascular Exam: REGULAR RHYTHM - GI/Abdominal Exam GI & Abdominal Exam: Distended Assessment and Plan (1) Viral syndrome Status: Acute (2) UTI (urinary tract infection) Status: Acute (3) SIRS (systemic inflammatory response syndrome) Status: Acute
--- NOTE | 2017-06-02 17:49 | CP.PCM.PN ---
Subjective - Date & Time of Evaluation Date of Evaluation: 06/02/17 Time of Evaluation: 17:00 - Subjective Subjective: [employer] NOTES patient seen today denies any chest pain, SOB, cough, congestion , N/V/D a febrile labs- wbc WNL hypokalemia - 3.3 - replaced s/p stress test- negative and normal EF blood culture- negative so far urine culture- negative D/W with Dr. Collins , cleared for discharge and continue keflex for 5 more days As per Dr. Arechiga patient can be discharged home today Objective - Vital Signs/Intake and Output Vital Signs (last 24 hours): Temp Pulse Resp BP Pulse Ox 97.8 F 82 20 114/73 95 06/02/17 15:34 06/02/17 15:34 06/02/17 15:34 06/02/17 15:34 06/02/17 15:34 Intake and Output: 06/02/17 06/02/17 06:59 18:59 Intake Total 1600 950 Balance 1600 950 - Medications Medications: Current Medications Aspirin (Ecotrin) 81 mg PO DAILY [facility] Last Admin: 06/02/17 10:33 Dose: Not Given Enoxaparin Sodium (Lovenox) 40 mg SC DAILY [facility] Last Admin: 06/02/17 10:36 Dose: 40 mg Furosemide (Lasix) 40 mg IVP BID [facility] Last Admin: 06/02/17 10:35 Dose: 40 mg Azithromycin 500 mg/ Sodium (Chloride) 250 mls @ 250 mls/hr IVPB DAILY [facility] Last Admin: 06/02/17 10:36 Dose: 250 mls/hr Ceftriaxone Sodium (Rocephin Iv 1 Gm Duplex) 50 mls @ 100 mls/hr IVPB DAILY [facility] Last Admin: 06/02/17 10:37 Dose: 100 mls/hr Dextrose/Sodium Chloride (Dextrose 5%/0.45% Ns 1000 Ml) 1,000 mls @ 100 mls/hr IV .Q10H [facility] Last Admin: 06/02/17 12:37 Dose: Not Given Pantoprazole Sodium (Protonix Ec Tab) 40 mg PO DAILY [facility] Last Admin: 06/02/17 10:35 Dose: Not Given Potassium Chloride (K-Dur 20 Meq Er Tab) 40 meq PO ONCE ONE Stop: 06/03/17 12:37 Rosuvastatin Calcium (Crestor) 10 mg PO [facility] Last Admin: 06/01/17 21:17 Dose: 10 mg - Labs Labs: 06/02/17 08:51 06/02/17 08:51
--- NOTE | 2017-06-02 18:58 | CP.PCM.PN ---
Subjective - Date & Time of Evaluation Date of Evaluation: 06/02/17 Time of Evaluation: 09:40 - Subjective Subjective: clinically same Objective - Vital Signs/Intake and Output Vital Signs (last 24 hours): Temp Pulse Resp BP Pulse Ox 97.8 F 82 20 114/73 95 06/02/17 15:34 06/02/17 15:34 06/02/17 15:34 06/02/17 15:34 06/02/17 15:34 Intake and Output: 06/02/17 06/02/17 06:59 18:59 Intake Total 1600 950 Balance 1600 950 - Medications Medications: Current Medications Aspirin (Ecotrin) 81 mg PO DAILY [facility] Last Admin: 06/02/17 10:33 Dose: Not Given Enoxaparin Sodium (Lovenox) 40 mg SC DAILY [facility] Last Admin: 06/02/17 10:36 Dose: 40 mg Furosemide (Lasix) 40 mg IVP BID [facility] Last Admin: 06/02/17 10:35 Dose: 40 mg Azithromycin 500 mg/ Sodium (Chloride) 250 mls @ 250 mls/hr IVPB DAILY [facility] Last Admin: 06/02/17 10:36 Dose: 250 mls/hr Ceftriaxone Sodium (Rocephin Iv 1 Gm Duplex) 50 mls @ 100 mls/hr IVPB DAILY [facility] Last Admin: 06/02/17 10:37 Dose: 100 mls/hr Dextrose/Sodium Chloride (Dextrose 5%/0.45% Ns 1000 Ml) 1,000 mls @ 100 mls/hr IV .Q10H [facility] Last Admin: 06/02/17 12:37 Dose: Not Given Pantoprazole Sodium (Protonix Ec Tab) 40 mg PO DAILY [facility] Last Admin: 06/02/17 10:35 Dose: Not Given Potassium Chloride (K-Dur 20 Meq Er Tab) 40 meq PO ONCE ONE Stop: 06/03/17 12:37 Rosuvastatin Calcium (Crestor) 10 mg PO HS [facility] Last Admin: 06/01/17 21:17 Dose: 10 mg - Labs Labs: 06/02/17 08:51 06/02/17 08:51 - Constitutional Appears: Well - Head Exam Head Exam: ATRAUMATIC, NORMAL INSPECTION, NORMOCEPHALIC - Eye Exam Eye Exam: EOMI, Normal appearance, PERRL Pupil Exam: NORMAL ACCOMODATION, PERRL - ENT Exam ENT Exam: Mucous Membranes Moist, Normal Exam - Neck Exam Neck Exam: Full ROM, Normal Inspection. absent: Lymphadenopathy - Respiratory Exam Respiratory Exam: Decreased Breath Sounds - Cardiovascular Exam Cardiovascular Exam: REGULAR RHYTHM, +S1, +S2 - GI/Abdominal Exam GI & Abdominal Exam: Soft, Diminished Bowel Sounds - Rectal Exam Rectal Exam: Deferred Assessment and Plan (1) Pericardial effusion Status: Acute (2) SIRS (systemic inflammatory response syndrome) Status: Acute (3) Viral syndrome Status: Acute (4) Calculus of proximal left ureter Status: Acute (5) Elevated BP Status: Acute (6) Hypertension Status: Acute (7) Intractable pain Status: Acute (8) Nausea & vomiting Status: Acute (9) Prophylactic measure Status: Acute (10) Renal colic Status: Acute (11) Renal colic on left side Status: Acute (12) Rheumatoid arthritis Status: Acute (13) UTI (urinary tract infection) Status: Acute - Assessment and Plan (Free Text) Plan: Patient examined. Patient better. Stress test negative. Patient is cleared for dischargeby dr. durham pt to be discharged wiht po antibiotic pt is afebrile Continue aspirin, furosemide and rosuvastatin. Continue supportive care.
[2017-06-02] MEDS ORDERED: Potassium Chloride 20 mEq ER Tab PO STA (19:17)
[2017-06-03] MEDS ORDERED: Potassium Chloride 10 mEq ER Tab PO SCH (08:00)
[2017-06-03] MEDS ORDERED: Potassium Chloride 20 mEq ER Tab PO ONE (12:36)
[2017-06-03 16:24] VITALS: O2SAT 97
== END 2017-06-02 19:07 | disposition home or self-care (01) | DRG 901 ==
LOC: C.ER 09:51 → C.9E 16:11 → C.5S 05-31 01:41
PROVIDERS: ADMIT Internal Medicine Nephrology; ATTEND Internal Medicine Nephrology
DX: A41.9 Sepsis, unspecified organism (principal); I31.3 Pericardial effusion (noninflammatory); N39.0 Urinary tract infection, site not specified; J98.11 Atelectasis; N18.9 Chronic kidney disease, unspecified; E87.6 Hypokalemia; N20.1 Calculus of ureter; A08.4 Viral intestinal infection, unspecified; D16.9 Benign neoplasm of bone and articular cartilage, unspecified; D72.825 Bandemia; E78.5 Hyperlipidemia, unspecified; I12.9 Hypertensive chronic kidney disease with stage 1 through stage 4 chronic kidney disease, or unspecified chronic kidney disease; K44.9 Diaphragmatic hernia without obstruction or gangrene; K57.30 Diverticulosis of large intestine without perforation or abscess without bleeding; M06.9 Rheumatoid arthritis, unspecified; Z87.442 Personal history of urinary calculi

== ENCOUNTER 2017-06-03 20:48 | Inpatient (IN) | payer MEDICAID ==
[2017-06-03] MEDS ORDERED: Sodium Chloride 0.9% 1,000 ML IV ONE (21:51)
[2017-06-03] MEDS ORDERED: Sodium Chloride 0.9% 1,000 ML ONE (21:56)
[2017-06-03 22:11] LABS: VENOUS BLOOD GAS BASE EXCESS 4.5 mmol/L (0.0-2.0); VENOUS BLOOD GAS PCO2 39 mmHg (40-60); VENOUS BLOOD PH 7.47 (7.32-7.43)
[2017-06-03 22:14] LABS: RBC URINE 1 /hpf (0-3); URINE BACTERIA RARE (<OCC); URINE BILIRUBIN NEGATIVE (NEGATIVE); URINE COLOR Yellow (YELLOW); URINE GLUCOSE (UA) NORMAL (Normal); URINE KETONE NEGATIVE (NEGATIVE); URINE PROTEIN 1+ mg/dL (NEGATIVE); URINE UROBILINOGEN NORMAL mg/dL (0.2-1.0); WBC URINE 1 /hpf (0-5)
[2017-06-03 22:15] LABS: URINE BLOOD NEGATIVE (NEGATIVE); URINE LEUKOCYTE ESTERASE NEGATIVE Leu/uL (Negative)
[2017-06-03 22:16] LABS: BASO % 0.4 % (0.0-2.0); EOS # 0.2 K/uL (0.0-0.7); EOS % 2.2 % (0.0-4.0); HEMATOCRIT 32.3 % (34.0-47.0); LYMPH # 0.4 K/uL (1.0-4.3); LYMPH % 4.5 % (20.0-40.0); MEAN CORPUSCULAR HEMOGLOBIN 23.7 pg (27.0-31.0); MEAN CORPUSCULAR HGB CONC 31.6 g/dL (33.0-37.0); MEAN PLATELET VOLUME 8.9 fL (7.2-11.7); MONO # 0.2 K/uL (0.0-0.8); MONO % 2.6 % (0.0-10.0); PLATELET COUNT 213 K/uL (130-400); RED CELL DISTRIBUTION WIDTH 15.9 % (11.5-14.5); WHITE BLOOD COUNT 8.3 K/uL (4.8-10.8)
[2017-06-03 22:32] LABS: ALB/GLOB RATIO 0.9 (1.0-2.1); ALKALINE PHOSPHATASE 125 U/L (38-126); ALT/SGPT 74 U/L (9-52); AST/SGOT 134 U/L (14-36); BILIRUBIN,TOTAL 0.7 mg/dL (0.2-1.3); BLOOD UREA NITROGEN 21 mg/dL (7-17); CALCIUM 8.5 mg/dl (8.6-10.4); CARBON DIOXIDE 29 mmol/L (22-30); CHLORIDE 97 mmol/L (98-107); GFR AFRICAN-AMERICAN > 60; GLUCOSE,RANDOM 112 mg/dL (65-105); SODIUM 138 mmol/L (132-148); TOTAL PROTEIN 8.5 g/dL (6.3-8.3)
[2017-06-03 22:40] LABS: NEUTROPHIL 93 % (50-75); TOTAL CELLS COUNTED 100
[2017-06-03 23:20] LABS: ERYTHROCYTE SEDIMENTATION RATE 85 mm/hr (0-20)
[2017-06-03] MEDS ORDERED: Lactated Ringer's 1,000 ML IVB STA (23:21)
--- NOTE | 2017-06-04 00:14 | C.PDOC ---
History Of Present Illness Pt was discharged from this hospital yesterday for same. Pt return today because she spiked a fever again. Time Seen by Provider: 06/03/17 21:23 Chief Complaint (Nursing): Fever History Per: Patient, Family Onset/Duration Of Symptoms: Days Current Symptoms Are (Timing): Still Present Associated Symptoms: Fever, Chills Severity: Severe Recent travel outside of the [place]: No Additional History Per: Prior Records Past Medical History Reviewed: Historical Data, Nursing Documentation, Vital Signs Vital Signs: Last Vital Signs Temp 102.5 F H 06/04/17 00:09 Pulse 116 H 06/04/17 00:09 Resp 12 06/04/17 00:09 BP 90/47 L 06/04/17 00:09 Pulse Ox 99 06/04/17 00:16 - Medical History PMH: Hyperlipidemia, Kidney Stones, Chronic Kidney Disease Surgical History: Endoscopy - [facility] Procedures CYSTOSCOPY NEC (01/03/15) RETROGRADE PYELOGRAM (01/03/15) URETERAL CATHETERIZATION (01/03/15) Family History: States: Unknown Family Hx - Social History Hx Tobacco Use: No Hx Alcohol Use: No Hx Substance Use: No - Immunization History Hx Tetanus Toxoid Vaccination: No Hx Influenza Vaccination: No Hx Pneumococcal Vaccination: No Review Of Systems Except As Marked, All Systems Reviewed And Found Negative. Constitutional: Positive for: Fever, Chills, Weakness, Malaise ENT: Negative for: Throat Pain Cardiovascular: Negative for: Chest Pain Respiratory: Positive for: Cough (mild). Negative for: Shortness of Breath Gastrointestinal: Negative for: Vomiting, Abdominal Pain, Diarrhea Genitourinary: Negative for: Dysuria Musculoskeletal: Negative for: Neck Pain, Back Pain Skin: Negative for: Rash Neurological: Negative for: Seizures, Headache Physical Exam - Physical Exam Appears: Other (Ill appearing. Malaised.) Skin: Normal Color, Warm, Dry, No Rash Head: Atraumatic, Normacephalic Eye(s): bilateral: Normal Inspection, PERRL, EOMI Oral Mucosa: Dry Neck: Normal ROM, Supple Cardiovascular: Rhythm Regular (tachycardia) Respiratory: Normal Breath Sounds, No Accessory Muscle Use Gastrointestinal/Abdominal: Soft, No Tenderness Back: No CVA Tenderness Extremity: Normal ROM Neurological/Psych: Oriented x3, Normal Motor, Normal Sensation ED Course And Treatment - Laboratory Results Result Diagrams: 06/03/17 22:08 11/30/17 22:08 Lab Interpretation: Abnormal Interpretation Of Abnormal: Left shift. Elevated ESR and CRP. O2 Sat by Pulse Oximetry: 99 Pulse Ox Interpretation: Normal - Radiology CXR: Interpreted by Me, Viewed By Me CXR Interpretation: Yes: No Acute Disease - Physician Consult Information Physician Contacted: Karlos Collins ([place]) Outcome Of Conversation: He recommended starting pt on Zithromax and Cefepime and he will see pt in the morning. Progress - Interventions Interventions:: Observation, Intravenous fluid - Medications Administered Oral: Acetaminophen - Data Reviewed Data Reviewed: Lab, Diagnostic imaging, Old records - Patient Status Patient status: Partially improved - Continuity of Care Discussed patient case with:: Patient, Family-HIPPA compliant, ED Nurse Discussed pt. case with wireless sales consultant/specialty: Infectious Disease - Patient Plan Patient Plan: Admission, Telemetry Disposition Discussed With DrPineda: Stacie Singh Comment: He accepted pt on his service and gave admitting orders to the nurse. Doctor Will See Patient In The: Hospital Counseled Patient/Family Regarding: Studies Performed, Diagnosis - Disposition Disposition: HOSPITALIZED Disposition Time: 00:25 Condition: GUARDED - Clinical Impression Clinical Impression: Fever of unknown origin
[2017-06-04] MEDS ORDERED: Cefepime 1 GM in Sodium Chloride 0.9% 50 ML IVPB STA (00:22)
[2017-06-04] MEDS ORDERED: Azithromycin 500mg/250ML NS 500 MG/250 ML BAG IVPB STA (00:23)
[2017-06-04] MEDS: Sodium Chloride 0.9% 1,000 ML IV SCH (00:30)
[2017-06-04] MEDS: Azithromycin 500mg/250ML NS 500 MG/250 ML BAG IVPB SCH (01:01)
[2017-06-04 05:51] LABS: BASO % 0.4 % (0.0-2.0); EOS # 0.1 K/uL (0.0-0.7); EOS % 1.6 % (0.0-4.0); HEMATOCRIT 30.2 % (34.0-47.0); LYMPH # 0.2 K/uL (1.0-4.3); LYMPH % 3.1 % (20.0-40.0); MEAN CELL VOLUME 75.3 fL (81.0-99.0); MEAN CORPUSCULAR HGB CONC 31.9 g/dL (33.0-37.0); MEAN PLATELET VOLUME 8.4 fL (7.2-11.7); MONO # 0.3 K/uL (0.0-0.8); MONO % 3.1 % (0.0-10.0); NRBC % 0.1 % (0.0-2.0); PLATELET COUNT 179 K/uL (130-400); RED CELL DISTRIBUTION WIDTH 15.6 % (11.5-14.5); WHITE BLOOD COUNT 8.1 K/uL (4.8-10.8)
[2017-06-04 06:05] LABS: ALKALINE PHOSPHATASE 108 U/L (38-126); ALT/SGPT 71 U/L (9-52); AST/SGOT 115 U/L (14-36); BILIRUBIN,TOTAL 1.7 mg/dL (0.2-1.3); BLOOD UREA NITROGEN 17 mg/dL (7-17); CALCIUM 7.5 mg/dl (8.6-10.4); CARBON DIOXIDE 21 mmol/L (22-30); CHLORIDE 104 mmol/L (98-107); GFR AFRICAN-AMERICAN > 60; GLUCOSE,RANDOM 102 mg/dL (65-105); SODIUM 137 mmol/L (132-148); TOTAL PROTEIN 6.7 g/dL (6.3-8.3)
[2017-06-04 08:43] LABS: EOSINOPHIL 4 % (0-4); NEUTROPHIL 78 % (50-75); TOTAL CELLS COUNTED 100
--- NOTE | 2017-06-04 09:18 | RAD ---
HISTORY: Fever, cough COMPARISON: Chest x-ray performed 05/30/17 TECHNIQUE: Chest, one view. FINDINGS: LUNGS: Azygos lobe, anatomic variant. Mild left basilar atelectasis. Please note that chest x-ray has limited sensitivity for the detection of pulmonary masses. PLEURA: No significant pleural effusion identified. No definite pneumothorax . CARDIOVASCULAR: Borderline cardiomegaly. OSSEOUS STRUCTURES: Degenerative changes of the spine. VISUALIZED UPPER ABDOMEN: Unremarkable. OTHER FINDINGS: None. IMPRESSION: Mild left basilar atelectasis. Borderline cardiomegaly.
[2017-06-04] MEDS ORDERED: CHOLECALCIFEROL 10000 UNIT PO SCH (10:00)
[2017-06-04] MEDS ORDERED: cefTRIAXone IV 1 gm in Dextros 1 GM in Dextrose 5% In Water 50 ML IVPB SCH (10:00)
[2017-06-04] MEDS ORDERED: Home Med 1 UNIT (Simvastatin [Simvastatin] 20 MG) PO SCH (10:00)
[2017-06-04] MEDS: Pantoprazole 40 mg EC Tab PO SCH (10:19)
[2017-06-04] MEDS: Enoxaparin 40 mg Syringe SC SCH (10:19)
[2017-06-04] MEDS: Ergocalciferol 50,000 Intl Units Cap PO SCH (10:20)
--- NOTE | 2017-06-04 16:38 | CP.PCM.CON ---
History of Present Illness - History of Present Illness History of Present Illness: Pt was discharged from this hospital yesterday for same. full work up including scans negative Pt return today because she spiked a fever again. - Medical History PMH: Hyperlipidemia, Kidney Stones, Chronic Kidney Disease Surgical History: Endoscopy Review of Systems - Constitutional Constitutional: As Per HPI, Anorexia, Chills, Fever - EENT Eyes: absent: As Per HPI, Blind Spots, Blurred Vision, Change in Vision, Decreased Night Vision, Diplopia, Discharge, Dry Eye, Exophthalmos, Floaters, Irritation, Itchy Eyes, Loss of Peripheral Vision, Pain, Photophobia, Requires Corrective Lenses, Sees Flashes, Spots in Vision, Tunnel Vision, Other Visual Disturbances, Loss of Vision, Other Ears: absent: As Per HPI, Decreased Hearing, Ear Discharge, Ear Pain, Tinnitus, Abnormal Hearing, Disequilibrium, Dizziness, Other Nose/Mouth/Throat: absent: As Per HPI, Epistaxis, Nasal Congestion, Nasal Discharge, Nasal Obstruction, Nasal Trauma, Nose Pain, Post Nasal Drip, Sinus Pain, Sinus Pressure, Bleeding Gums, Change in Voice, Dental Pain, Dry Mouth, Dysphagia, Halitosis, Hoarsness, Lip Swelling, Mouth Lesions, Mouth Pain, Odynophagia, Sore Throat, Throat Swelling, Tongue Swelling, Facial Pain, Neck Pain, Neck Mass, Other - Breasts Breasts: absent: As Per HPI, Change in Shape, Mass, Pain, Nipple Discharge, Nipple Inversion, Skin Changes, Swelling, Other - Cardiovascular Cardiovascular: absent: As Per HPI, Acrocyanosis, Chest Pain, Chest Pain at Rest , Chest Pain with Activity, Claudication, Diaphoresis, Dyspnea, Dyspnea on Exertion, Edema, Irregular Heart Rhythm, Pain Radiating to Arm/Neck/Jaw, Leg Edema, Leg Ulcers, Lightheadedness, Orthopnea, Palpitations, Paroxysmal Nocturnal Dyspnea, Pedal Edema, Radiating Pain, Rapid Heart Rate, Slow Heart Rate, Syncope, Other - Respiratory Respiratory: absent: As Per HPI, Cough, Dyspnea, Hemoptysis, Dyspnea on Exertion , Wheezing, Snoring, Stridor, Pain on Inspiration, Chest Congestion, Excessive Mucous Production, Change in Mucous Color, Pain with Coughing, Other - Gastrointestinal Gastrointestinal: absent: As Per HPI, Abdominal Pain, Belching, Bloating, Change in Bowel Habits, Change in Stool Character, Coffee Ground Emesis, Constipation, Cramping, Diarrhea, Dyspepsia, Dysphagia, Early Satiety, Excessive Flatus, Fecal Incontinence, Heartburn, Hematemesis, Hematochezia, Loose Stools, Melena, Nausea, Odynophagia, Temesmus, Vomiting, Other - Genitourinary Genitourinary: absent: As Per HPI, Change in Urinary Stream, Difficulty Urinating, Dysuria, Flank Pain, Hematuria, Pyuria, Nocturia, Urinary Incontinence, Urinary Frequency, Urinary Hesitance, Urinary Urgency, Voiding Freq/Small Amts, Freq UTI, Hx Renal/Bladder Calculi, Hx /Renal Surgery, Bladder Distension, Other - Reproductive: Female Reproductive:Female: absent: As Per HPI, Amenorrhea, Amenorrhea/ Control, Currently Menstual, Cycle <21 Days, Cycle >35 Days, Cycle Variable, Menses 1-7 Days, Menses >/= 8 Days, Menses Variable, Cycle > 4 Weeks Between, No Menses for 6 Months, Heavy Menses, Light Menses, Normal Menses, Spotting Between Cycles , S/P Hysterectomy, Menopausal, Post Menopausal, Premenarche, Abnormal Vaginal Bleeding, Dysmenorrhea, Dyspareunia, Genital Lesions, Genital Pruritis, Pelvic Pain, Prolapse Symptoms, Sexual Dysfunction, Vaginal Discharge, Vaginal Dryness , Vaginal Odor, Vaginal Pruritis, Other - Menstruation Menstruation: absent: As Per HPI, Amenorrhea, Amenorrhea/ Control, Currently Menstual, Cycle <21 Days, Cycle >35 Days, Cycle Variable, Menses 1-7 Days, Menses >/= 8 Days, Menses Variable, Cycle > 4 Weeks Between, No Menses for 6 Months, Heavy Menses, Light Menses, Normal Menses, Spotting Between Cycles , S/P Hysterectomy, Menopausal, Post Menopausal, Premenarche, Abnormal Vaginal Bleeding, Dysmenorrhea, Other - Musculoskeletal Musculoskeletal: As Per HPI, Arthralgias - Integumentary Integumentary: absent: As Per HPI, Acne, Alopecia, Bleeding Lesions, Change in Hair, Change in Nails, Change in Pigmentation, Changing Lesions, Dry Skin, Erythema, Furuncle, Hirsutism, Lesions, New Lesions, Non-Healing Lesions, Photosensitivity, Pruritus, Rash, Skin Pain, Skin Ulcer, Sores, Striae, Swelling , Unusual Bruising, Wounds, Jaundice, Other - Neurological Neurological: absent: As Per HPI, Abnormal Gait, Abnormal Hearing, Abnormal Movements, Abnormal Speech, Behavioral Changes, Burning Sensations, Confusion, Convulsions, Disequilibrium, Dizziness, Numbness, Focal Weakness, Frequent Falls , Headaches, Lack of Coordination, Loss of Vision, Memory Loss, Paresthesias, Radicular Pain, Restless Legs, Sensory Deficit, Syncope, Tingling, Tremor, Vertigo, Weakness, Other Visual Disturbances, Other - Psychiatric Psychiatric: absent: As Per HPI, Abnormal Sleep Pattern, Anhedonia, Anxiety, Auditory Hallucinations, Behavioral Changes, Change in Appetite, Change in Libido, Confusion, Depression, Difficulty Concentrating, Hallucinations, Homicidal Ideation, Hopelessness, Irritability, Memory Loss, Mood Swings, Panic Attacks, Paranoia, Suicidal Ideation, Visual Hallucinations, Tactile Hallucinations, Other - Endocrine Endocrine: absent: As Per HPI, Change in Body Appearance, Change in Libido, Cold Intolorance, Deepening of Voice, Excessive Sweating, Fatigue, Flushing, Heat Intolorance, Increase in Ring/Shoe/Hat Size, Palpitations, Polydipsia, Polyphagia, Polyuria, Other - Hematologic/Lymphatic Hematologic: absent: As Per HPI, Easy Bleeding, Easy Bruising, Lymphadenopathy, Other Past Patient History - Infectious Disease Hx of Infectious Diseases: None - Past Medical History & Family History Past Medical History?: Yes - Past Social History Smoking Status: Never Smoked - CARDIAC Hx Cardiac Disorders: Yes - PULMONARY Hx Respiratory Disorders: No - NEUROLOGICAL Hx Neurological Disorder: No - HEENT Hx HEENT Problems: Yes Hx Cataracts: Yes - RENAL Hx Chronic Kidney Disease: Yes Hx Kidney Stones: Yes - ENDOCRINE/METABOLIC Hx Endocrine Disorders: No - HEMATOLOGICAL/ONCOLOGICAL Hx Blood Disorders: Yes Hx Blood Transfusions: Yes Hx Blood Transfusion Reaction: No - INTEGUMENTARY Hx Dermatological Problems: No - MUSCULOSKELETAL/RHEUMATOLOGICAL Hx Musculoskeletal Disorders: No Hx Falls: No - GASTROINTESTINAL Hx Gastrointestinal Disorders: Yes (HX GI BLEEDING DUE TO NAPROSYN) - GENITOURINARY/GYNECOLOGICAL Hx Genitourinary Disorders: No - PSYCHIATRIC Hx Substance Use: No - SURGICAL HISTORY Hx Surgeries: Yes Hx Cataract Extraction: Yes - ANESTHESIA Hx Anesthesia: Yes Hx Anesthesia Reactions: No Hx Malignant Hyperthermia: No Meds Allergies/Adverse Reactions: Allergies Allergy/AdvReac Type Severity Reaction Status Date / Time No Known Allergies Allergy Unverified 11/30/17 21:00 - Medications Medications: Current Medications Acetaminophen (Tylenol 325mg Tab) 650 mg PO Q6 PRN PRN Reason: Fever >100.4 F Last Admin: 06/04/17 14:11 Dose: 650 mg Enoxaparin Sodium (Lovenox) 40 mg SC DAILY [facility] Last Admin: 06/04/17 10:19 Dose: 40 mg Ergocalciferol (Drisdol 50,000 Intl Units Cap) 1 cap PO QWK [facility] Last Admin: 06/04/17 10:20 Dose: 1 cap Sodium Chloride (Sodium Chloride 0.9%) 1,000 mls @ 75 mls/hr IV .[id number] [facility] Last Admin: 06/04/17 00:30 Dose: 75 mls/hr Vancomycin HCl 1 gm/ Sodium (Chloride) 250 mls @ 166.7 mls/hr IVPB Q24H [facility] Last Admin: 06/04/17 02:45 Dose: 166.7 mls/hr Azithromycin (Zithromax 500mg In Ns Addvantage) 500 mg in 250 mls @ 167 mls/hr IVPB Q24H [facility] Last Admin: 06/04/17 01:01 Dose: Not Given Ceftriaxone Sodium 1 gm/ (Sodium Chloride) 100 mls @ 200 mls/hr IVPB DAILY [facility] Last Admin: 06/04/17 11:39 Dose: 200 mls/hr Pantoprazole Sodium (Protonix Ec Tab) 40 mg PO DAILY [facility] Last Admin: 06/04/17 10:19 Dose: 40 mg Rosuvastatin Calcium (Crestor) 5 mg PO [facility] Tamsulosin HCl (Flomax) 0.4 mg PO DAILY [facility] Last Admin: 06/04/17 10:19 Dose: 0.4 mg Physical Exam - Constitutional Appears: Non-toxic, Chronically Ill - Head Exam Head Exam: ATRAUMATIC, NORMAL INSPECTION, NORMOCEPHALIC - Eye Exam Eye Exam: EOMI, PERRL. absent: Scleral icterus - ENT Exam ENT Exam: Mucous Membranes Dry, Normal External Ear Exam - Neck Exam Neck exam: Negative for: Lymphadenopathy - Respiratory Exam Respiratory Exam: Decreased Breath Sounds, Rhonchi - Cardiovascular Exam Cardiovascular Exam: REGULAR RHYTHM, +S1, +S2 - GI/Abdominal Exam GI & Abdominal Exam: Diminished Bowel Sounds, Distended, Soft. absent: Tenderness - Rectal Exam Rectal Exam: Deferred - Exam Exam: NORMAL INSPECTION - Extremities Exam Extremities exam: Negative for: calf tenderness, pedal edema - Back Exam Back exam: absent: CVA tenderness (L), CVA tenderness (R), paraspinal tenderness - Neurological Exam Neurological exam: Alert, CN II-XII Intact, Oriented x3, Reflexes Normal - Psychiatric Exam Psychiatric exam: Normal Mood - Skin Skin Exam: Dry Results - Vital Signs Recent Vital Signs: Last Vital Signs Temp 98.3 F 06/04/17 15:52 Pulse 89 06/04/17 15:52 Resp 18 06/04/17 15:52 BP 93/59 L 06/04/17 15:52 Pulse Ox 100 06/04/17 15:52 - Labs Result Diagrams: 06/04/17 05:48 06/04/17 05:48 Labs: Laboratory Results - last 24 hr 06/03/17 06/03/17 06/03/17 21:51 22:05 22:08 WBC 8.3 RBC 4.30 Hgb 10.2 L Hct 32.3 L MCV 75.0 L MCH 23.7 L MCHC 31.6 L RDW 15.9 H Plt Count 213 MPV 8.9 Neut % (Auto) 90.3 H Lymph % (Auto) 4.5 L [place]berry % (Auto) 2.6 Eos % (Auto) 2.2 Baso % (Auto) 0.4 Neut # 7.5 H Lymph # 0.4 L [place]berry # 0.2 Eos # 0.2 Baso # 0.0 Neutrophils % (Manual) 93 H Band Neutrophils % 1 Lymphocytes % (Manual) 4 L Monocytes % (Manual) 2 Eosinophils % (Manual) Platelet Estimate Normal Polychromasia Slight Hypochromasia (manual) Slight Anisocytosis (manual) Slight Microcytosis (manual) Slight Ovalocytes ESR 85 H pO2 22 L VBG pH 7.47 H VBG pCO2 39 L VBG HCO3 26.9 VBG Total CO2 29.6 H VBG O2 Sat (Calc) 45.6 VBG Base Excess 4.5 H VBG Potassium 4.2 Sodium 139.0 Chloride 107.0 Glucose 123 H Lactate 2.1 Liter Flow 2.0 FiO2 28.0 Potassium Carbon Dioxide Anion Gap BUN Creatinine Est GFR ( Amer) Est GFR (Non-Af Amer) Random Glucose Calcium Total Bilirubin AST ALT Alkaline Phosphatase Troponin I C-React Prot High Sens NT-Pro-B Natriuret Pep Total Protein Albumin Globulin Albumin/Globulin Ratio Procalcitonin Venous Blood Potassium 4.2 Urine Color Urine Clarity Urine pH Ur Specific Leon Urine Protein Urine Glucose (UA) Urine Ketones Urine Blood Urine Nitrate Urine Bilirubin Urine Urobilinogen Ur Leukocyte Esterase Urine WBC (Auto) Urine RBC (Auto) Ur Squamous Epith Cells Urine Bacteria Influenza Typ A,B (EIA) Negative for flu a/b Grp A Beta Strep Ag 06/03/17 06/03/17 06/03/17 22:08 22:08 22:08 WBC RBC Hgb Hct MCV MCH MCHC RDW Plt Count MPV Neut % (Auto) Lymph % (Auto) Newberry % (Auto) Eos % (Auto) Baso % (Auto) Neut # Lymph # [place] # Eos # Baso # Neutrophils % (Manual) Band Neutrophils % Lymphocytes % (Manual) Monocytes % (Manual) Eosinophils % (Manual) Platelet Estimate Polychromasia Hypochromasia (manual) Anisocytosis (manual) Microcytosis (manual) Ovalocytes ESR pO2 VBG pH VBG pCO2 VBG HCO3 VBG Total CO2 VBG O2 Sat (Calc) VBG Base Excess VBG Potassium Sodium 138 Chloride 97 L Glucose Lactate Liter Flow FiO2 Potassium 4.0 Carbon Dioxide 29 Anion Gap 16 BUN 21 H Creatinine 1.0 Est GFR ( Amer) > 60 Est GFR (Non-Af Amer) 56 Random Glucose 112 H Calcium 8.5 L Total Bilirubin 0.7 AST 134 H D ALT 74 H D Alkaline Phosphatase 125 Troponin I 0.0130 C-React Prot High Sens > 15.00 H NT-Pro-B Natriuret Pep 1370 H Total Protein 8.5 H Albumin 3.9 Globulin 4.6 H Albumin/Globulin Ratio 0.9 L Procalcitonin Venous Blood Potassium Urine Color Yellow Urine Clarity Clear Urine pH 5.0 Ur Specific Leon 1.011 Urine Protein 1+ H Urine Glucose (UA) Normal Urine Ketones Negative Urine Blood Negative Urine Nitrate Negative Urine Bilirubin Negative Urine Urobilinogen Normal Ur Leukocyte Esterase Negative Urine WBC (Auto) 1 Urine RBC (Auto) 1 Ur Squamous Epith Cells 1 Urine Bacteria Rare Influenza Typ A,B (EIA) Grp A Beta Strep Ag 06/04/17 06/04/17 06/04/17 01:23 05:48 05:48 WBC 8.1 RBC 4.01 Hgb 9.6 L Hct 30.2 L MCV 75.3 L MCH 24.0 L MCHC 31.9 L RDW 15.6 H Plt Count 179 MPV 8.4 Neut % (Auto) 91.8 H Lymph % (Auto) 3.1 L Newberry % (Auto) 3.1 Eos % (Auto) 1.6 Baso % (Auto) 0.4 Neut # 7.4 H Lymph # 0.2 L [place]berry # 0.3 Eos # 0.1 Baso # 0.0 Neutrophils % (Manual) 78 H Band Neutrophils % 8 H Lymphocytes % (Manual) 8 L Monocytes % (Manual) 2 Eosinophils % (Manual) 4 Platelet Estimate Normal Polychromasia Hypochromasia (manual) Anisocytosis (manual) Slight Microcytosis (manual) Ovalocytes Slight ESR pO2 VBG pH VBG pCO2 VBG HCO3 VBG Total CO2 VBG O2 Sat (Calc) VBG Base Excess VBG Potassium Sodium 137 Chloride 104 Glucose Lactate Liter Flow FiO2 Potassium 5.0 Carbon Dioxide 21 L Anion Gap 18 BUN 17 Creatinine 1.0 Est GFR ( Amer) > 60 Est GFR (Non-Af Amer) 56 Random Glucose 102 Calcium 7.5 L Total Bilirubin 1.7 H AST 115 H ALT 71 H Alkaline Phosphatase 108 Troponin I C-React Prot High Sens NT-Pro-B Natriuret Pep Total Protein 6.7 Albumin 3.3 L Globulin 3.4 Albumin/Globulin Ratio 1.0 Procalcitonin Venous Blood Potassium Urine Color Urine Clarity Urine pH Ur Specific Leon Urine Protein Urine Glucose (UA) Urine Ketones Urine Blood Urine Nitrate Urine Bilirubin Urine Urobilinogen Ur Leukocyte Esterase Urine WBC (Auto) Urine RBC (Auto) Ur Squamous Epith Cells Urine Bacteria Influenza Typ A,B (EIA) Grp A Beta Strep Ag Negative 06/04/17 05:48 WBC RBC Hgb Hct MCV MCH MCHC RDW Plt Count MPV Neut % (Auto) Lymph % (Auto) Newberry % (Auto) Eos % (Auto) Baso % (Auto) Neut # Lymph # [place] # Eos # Baso # Neutrophils % (Manual) Band Neutrophils % Lymphocytes % (Manual) Monocytes % (Manual) Eosinophils % (Manual) Platelet Estimate Polychromasia Hypochromasia (manual) Anisocytosis (manual) Microcytosis (manual) Ovalocytes ESR pO2 VBG pH VBG pCO2 VBG HCO3 VBG Total CO2 VBG O2 Sat (Calc) VBG Base Excess VBG Potassium Sodium Chloride Glucose Lactate Liter Flow FiO2 Potassium Carbon Dioxide Anion Gap BUN Creatinine Est GFR ( Amer) Est GFR (Non-Af Amer) Random Glucose Calcium Total Bilirubin AST ALT Alkaline Phosphatase Troponin I C-React Prot High Sens NT-Pro-B Natriuret Pep Total Protein Albumin Globulin Albumin/Globulin Ratio Procalcitonin 0.74 H Venous Blood Potassium Urine Color Urine Clarity Urine pH Ur Specific Leon Urine Protein Urine Glucose (UA) Urine Ketones Urine Blood Urine Nitrate Urine Bilirubin Urine Urobilinogen Ur Leukocyte Esterase Urine WBC (Auto) Urine RBC (Auto) Ur Squamous Epith Cells Urine Bacteria Influenza Typ A,B (EIA) Grp A Beta Strep Ag Assessment & Plan (1) Fever of unknown origin Status: Acute - Assessment and Plan (Free Text) Assessment: r/o occult infection vs malignancy iv rx ordered prognosis guarded consider EMI
[2017-06-04] MEDS ORDERED: Tuberculin 5 Units/0.1 ml Inj ID ONE (16:45)
--- NOTE | 2017-06-04 20:03 | CP.PCM.HP ---
History of Present Illness - History of Present Illness History of Present Illness: 66-year-old female with PMHhyperlipidemia, renal stone, CKD presents for evaluation of fever. C/Ofever for the last few days. Associated with chills and rigors. Patient was admitted a few days ago for the same and discharged yesterday, but fever spiked again so she came back. Her full workup including scans were negative. Present on Admission - Present on Admission Any Indicators Present on Admission: No Past Patient History - Infectious Disease Hx of Infectious Diseases: None - Past Medical History & Family History Past Medical History?: Yes - Past Social History Smoking Status: Never Smoked - CARDIAC Hx Cardiac Disorders: Yes - PULMONARY Hx Respiratory Disorders: No - NEUROLOGICAL Hx Neurological Disorder: No - HEENT Hx HEENT Problems: Yes Hx Cataracts: Yes - RENAL Hx Chronic Kidney Disease: Yes Hx Kidney Stones: Yes - ENDOCRINE/METABOLIC Hx Endocrine Disorders: No - HEMATOLOGICAL/ONCOLOGICAL Hx Blood Disorders: Yes Hx Blood Transfusions: Yes Hx Blood Transfusion Reaction: No - INTEGUMENTARY Hx Dermatological Problems: No - MUSCULOSKELETAL/RHEUMATOLOGICAL Hx Musculoskeletal Disorders: No Hx Falls: No - GASTROINTESTINAL Hx Gastrointestinal Disorders: Yes (HX GI BLEEDING DUE TO NAPROSYN) - GENITOURINARY/GYNECOLOGICAL Hx Genitourinary Disorders: No - PSYCHIATRIC Hx Substance Use: No - SURGICAL HISTORY Hx Surgeries: Yes Hx Cataract Extraction: Yes - ANESTHESIA Hx Anesthesia: Yes Hx Anesthesia Reactions: No Hx Malignant Hyperthermia: No Meds Allergies/Adverse Reactions: Allergies Allergy/AdvReac Type Severity Reaction Status Date / Time No Known Allergies Allergy Unverified 06/03/17 21:00 Physical Exam - Constitutional Appears: Well - Head Exam Head Exam: ATRAUMATIC, NORMAL INSPECTION, NORMOCEPHALIC - Eye Exam Eye Exam: EOMI, Normal appearance, PERRL Pupil Exam: NORMAL ACCOMODATION, PERRL - ENT Exam ENT Exam: Mucous Membranes Moist, Normal Exam - Neck Exam Neck exam: Positive for: Normal Inspection - Respiratory Exam Respiratory Exam: Decreased Breath Sounds - Cardiovascular Exam Cardiovascular Exam: REGULAR RHYTHM, +S1, +S2 - GI/Abdominal Exam GI & Abdominal Exam: Diminished Bowel Sounds, Soft - Rectal Exam Rectal Exam: Deferred Results - Vital Signs Recent Vital Signs: Last Vital Signs Temp 98.3 F 06/04/17 15:52 Pulse 95 H 06/04/17 16:00 Resp 18 06/04/17 15:52 BP 93/59 L 06/04/17 15:52 Pulse Ox 100 06/04/17 15:52 - Labs Result Diagrams: 06/04/17 05:48 06/04/17 05:48 Labs: Laboratory Results - last 24 hr 06/03/17 06/03/17 06/03/17 21:51 22:05 22:08 WBC 8.3 RBC 4.30 Hgb 10.2 L Hct 32.3 L MCV 75.0 L MCH 23.7 L MCHC 31.6 L RDW 15.9 H Plt Count 213 MPV 8.9 Neut % (Auto) 90.3 H Lymph % (Auto) 4.5 L Talbot % (Auto) 2.6 Eos % (Auto) 2.2 Baso % (Auto) 0.4 Neut # 7.5 H Lymph # 0.4 L Talbot # 0.2 Eos # 0.2 Baso # 0.0 Neutrophils % (Manual) 93 H Band Neutrophils % 1 Lymphocytes % (Manual) 4 L Monocytes % (Manual) 2 Eosinophils % (Manual) Platelet Estimate Normal Polychromasia Slight Hypochromasia (manual) Slight Anisocytosis (manual) Slight Microcytosis (manual) Slight Ovalocytes ESR 85 H pO2 22 L VBG pH 7.47 H VBG pCO2 39 L VBG HCO3 26.9 VBG Total CO2 29.6 H VBG O2 Sat (Calc) 45.6 VBG Base Excess 4.5 H VBG Potassium 4.2 Sodium 139.0 Chloride 107.0 Glucose 123 H Lactate 2.1 Liter Flow 2.0 FiO2 28.0 Potassium Carbon Dioxide Anion Gap BUN Creatinine Est GFR ( Amer) Est GFR (Non-Af Amer) Random Glucose Calcium Total Bilirubin AST ALT Alkaline Phosphatase Troponin I C-React Prot High Sens NT-Pro-B Natriuret Pep Total Protein Albumin Globulin Albumin/Globulin Ratio Procalcitonin Venous Blood Potassium 4.2 Urine Color Urine Clarity Urine pH Ur Specific [place] Urine Protein Urine Glucose (UA) Urine Ketones Urine Blood Urine Nitrate Urine Bilirubin Urine Urobilinogen Ur Leukocyte Esterase Urine WBC (Auto) Urine RBC (Auto) Ur Squamous Epith Cells Urine Bacteria Influenza Typ A,B (EIA) Negative for flu a/b Grp A Beta Strep Ag 06/03/17 06/03/17 06/03/17 22:08 22:08 22:08 WBC RBC Hgb Hct MCV MCH MCHC RDW Plt Count MPV Neut % (Auto) Lymph % (Auto) Talbot % (Auto) Eos % (Auto) Baso % (Auto) Neut # Lymph # Talbot # Eos # Baso # Neutrophils % (Manual) Band Neutrophils % Lymphocytes % (Manual) Monocytes % (Manual) Eosinophils % (Manual) Platelet Estimate Polychromasia Hypochromasia (manual) Anisocytosis (manual) Microcytosis (manual) Ovalocytes ESR pO2 VBG pH VBG pCO2 VBG HCO3 VBG Total CO2 VBG O2 Sat (Calc) VBG Base Excess VBG Potassium Sodium 138 Chloride 97 L Glucose Lactate Liter Flow FiO2 Potassium 4.0 Carbon Dioxide 29 Anion Gap 16 BUN 21 H Creatinine 1.0 Est GFR ( Amer) > 60 Est GFR (Non-Af Amer) 56 Random Glucose 112 H Calcium 8.5 L Total Bilirubin 0.7 AST 134 H D ALT 74 H D Alkaline Phosphatase 125 Troponin I 0.0130 C-React Prot High Sens > 15.00 H NT-Pro-B Natriuret Pep 1370 H Total Protein 8.5 H Albumin 3.9 Globulin 4.6 H Albumin/Globulin Ratio 0.9 L Procalcitonin Venous Blood Potassium Urine Color Yellow Urine Clarity Clear Urine pH 5.0 Ur Specific [place] 1.011 Urine Protein 1+ H Urine Glucose (UA) Normal Urine Ketones Negative Urine Blood Negative Urine Nitrate Negative Urine Bilirubin Negative Urine Urobilinogen Normal Ur Leukocyte Esterase Negative Urine WBC (Auto) 1 Urine RBC (Auto) 1 Ur Squamous Epith Cells 1 Urine Bacteria Rare Influenza Typ A,B (EIA) Grp A Beta Strep Ag 06/04/17 06/04/17 06/04/17 01:23 05:48 05:48 WBC 8.1 RBC 4.01 Hgb 9.6 L Hct 30.2 L MCV 75.3 L MCH 24.0 L MCHC 31.9 L RDW 15.6 H Plt Count 179 MPV 8.4 Neut % (Auto) 91.8 H Lymph % (Auto) 3.1 L Talbot % (Auto) 3.1 Eos % (Auto) 1.6 Baso % (Auto) 0.4 Neut # 7.4 H Lymph # 0.2 L Talbot # 0.3 Eos # 0.1 Baso # 0.0 Neutrophils % (Manual) 78 H Band Neutrophils % 8 H Lymphocytes % (Manual) 8 L Monocytes % (Manual) 2 Eosinophils % (Manual) 4 Platelet Estimate Normal Polychromasia Hypochromasia (manual) Anisocytosis (manual) Slight Microcytosis (manual) Ovalocytes Slight ESR pO2 VBG pH VBG pCO2 VBG HCO3 VBG Total CO2 VBG O2 Sat (Calc) VBG Base Excess VBG Potassium Sodium 137 Chloride 104 Glucose Lactate Liter Flow FiO2 Potassium 5.0 Carbon Dioxide 21 L Anion Gap 18 BUN 17 Creatinine 1.0 Est GFR ( Amer) > 60 Est GFR (Non-Af Amer) 56 Random Glucose 102 Calcium 7.5 L Total Bilirubin 1.7 H AST 115 H ALT 71 H Alkaline Phosphatase 108 Troponin I C-React Prot High Sens NT-Pro-B Natriuret Pep Total Protein 6.7 Albumin 3.3 L Globulin 3.4 Albumin/Globulin Ratio 1.0 Procalcitonin Venous Blood Potassium Urine Color Urine Clarity Urine pH Ur Specific [place] Urine Protein Urine Glucose (UA) Urine Ketones Urine Blood Urine Nitrate Urine Bilirubin Urine Urobilinogen Ur Leukocyte Esterase Urine WBC (Auto) Urine RBC (Auto) Ur Squamous Epith Cells Urine Bacteria Influenza Typ A,B (EIA) Grp A Beta Strep Ag Negative 06/04/17 05:48 WBC RBC Hgb Hct MCV MCH MCHC RDW Plt Count MPV Neut % (Auto) Lymph % (Auto) Talbot % (Auto) Eos % (Auto) Baso % (Auto) Neut # Lymph # [place] # Eos # Baso # Neutrophils % (Manual) Band Neutrophils % Lymphocytes % (Manual) Monocytes % (Manual) Eosinophils % (Manual) Platelet Estimate Polychromasia Hypochromasia (manual) Anisocytosis (manual) Microcytosis (manual) Ovalocytes ESR pO2 VBG pH VBG pCO2 VBG HCO3 VBG Total CO2 VBG O2 Sat (Calc) VBG Base Excess VBG Potassium Sodium Chloride Glucose Lactate Liter Flow FiO2 Potassium Carbon Dioxide Anion Gap BUN Creatinine Est GFR ( Amer) Est GFR (Non-Af Amer) Random Glucose Calcium Total Bilirubin AST ALT Alkaline Phosphatase Troponin I C-React Prot High Sens NT-Pro-B Natriuret Pep Total Protein Albumin Globulin Albumin/Globulin Ratio Procalcitonin 0.74 H Venous Blood Potassium Urine Color Urine Clarity Urine pH Ur Specific [place] Urine Protein Urine Glucose (UA) Urine Ketones Urine Blood Urine Nitrate Urine Bilirubin Urine Urobilinogen Ur Leukocyte Esterase Urine WBC (Auto) Urine RBC (Auto) Ur Squamous Epith Cells Urine Bacteria Influenza Typ A,B (EIA) Grp A Beta Strep Ag
[2017-06-04 20:39] LABS: INTRACELLULAR PARASITE NEGATIVE (NEGATIVE)
--- NOTE | 2017-06-05 01:34 | CON ---
DATE: CARDIOLOGY CONSULTATION REASON FOR CONSULTATION: Fever. HISTORY OF PRESENT ILLNESS: The patient is a 67-year-old [place] female, who has past medical history of left ureteric stone status post left ureteric stent in 2014 . She presented because of fever. The patient was admitted on 05/30/2017, i.e. 4 days ago, with left quadrant abdominal pain secondary to urinary tract infection. The patient was evaluated by Dr. Robins, the crop consultant drapery rod assembler at that time. Myoview stress test was reported to be negative. The patient presented to the emergency room because of low-grade fever. She denies any chills. She denies any abdominal pain, sore throat or productive cough. The patient has no history of recent indwelling catheter placement. SOCIAL HISTORY: Nonsmoker, nondrinker. MEDICATIONS: Rocephin 1 g intravenously daily, Crestor 5 mg once a day, Lovenox 20 mg subcutaneously once a day, Protonix 40 mg p.o. once a day, Zithromax 500 mg intravenously daily, vancomycin 1 g intravenously daily. REVIEW OF SYSTEMS: No dizziness or syncope. No palpitation. No nausea or vomiting. PHYSICAL EXAMINATION: GENERAL: The patient is an elderly female, who does not appear to be in any acute distress. VITAL SIGNS: Blood pressure 116/61, heart rate 95, temperature 100.8, respiration 22. HEENT: Normocephalic. CHEST: Left basilar rhonchi. HEART: S1, S2 regular. ABDOMEN: Soft. EXTREMITIES: No edema. LABORATORY DATA: SMA-7 today is within normal limits except for carbon dioxide of 21. Calcium is below normal at 7.5. One set of troponin is negative. Hemoglobin and hematocrit 9.6 and *------*, white count and platelet count are within normal limit. Urine culture on 05/19/2017 was positive for Klebsiella pneumoniae. Abdomen and pelvis CT scan without contrast, mild hepatosplenomegaly, suspected pericardial effusion, slight bulky appearing uterus. There appears to be diffuse scattered colonic diverticula along the distal descending and sigmoid colon; however, no radiographic evidence of acute diverticulitis. There was no evidence of nephrolithiasis or hydronephrosis, and there is no mentioning on the CAT scan of presence of ureteric stent, which must have been removed. Chest x-ray, bilateral lobe haziness. ASSESSMENT: 1. Recurrent fever. 2. Recent urinary tract infection. 3. Rule out endocarditis. RECOMMENDATION: Continue current IV Rocephin, IV vancomycin, IV Zithromax. Obtain 2 sets of blood cultures if they have not been taken prior to antibiotic therapy. Obtain transthoracic echocardiographic study. Claus Shukla MD
[2017-06-05] MEDS: Azithromycin 500mg/250ML NS 500 MG/250 ML BAG IVPB SCH (01:48)
[2017-06-05] MEDS: Sodium Chloride 0.9% 1,000 ML IV SCH ×3 (03:15→16:32)
[2017-06-05] MEDS: Pantoprazole 40 mg EC Tab PO SCH (09:37)
[2017-06-05] MEDS: Enoxaparin 40 mg Syringe SC SCH (09:38)
--- NOTE | 2017-06-05 10:28 | CARD ---
APPROVED REPORT EKG Measurement Heart [id number] <Conclusion> Sinus tachycardia Otherwise normal ECG
[2017-06-05 18:08] LABS: PROCALCITONIN SERUM 0.53 NG/ML (0.19-0.49)
--- NOTE | 2017-06-05 18:36 | CP.PCM.PN ---
Subjective - Date & Time of Evaluation Date of Evaluation: 06/05/17 Time of Evaluation: 12:00 - Subjective Subjective: clinically same Objective - Vital Signs/Intake and Output Vital Signs (last 24 hours): Temp Pulse Resp BP Pulse Ox 99.2 F 96 H 20 99/64 L 98 06/05/17 18:13 06/05/17 18:13 06/05/17 18:13 06/05/17 18:13 06/05/17 18:13 - Medications Medications: Current Medications Acetaminophen (Tylenol 325mg Tab) 650 mg PO Q6 PRN PRN Reason: Fever >100.4 F Last Admin: 06/05/17 02:27 Dose: 650 mg Enoxaparin Sodium (Lovenox) 40 mg SC DAILY [facility] Last Admin: 06/05/17 09:38 Dose: 40 mg Ergocalciferol (Drisdol 50,000 Intl Units Cap) 1 cap PO QWK [facility] Last Admin: 06/04/17 10:20 Dose: 1 cap Sodium Chloride (Sodium Chloride 0.9%) 1,000 mls @ 75 mls/hr IV .[id number] [facility] Last Admin: 06/05/17 13:40 Dose: 75 mls/hr Vancomycin HCl 1 gm/ Sodium (Chloride) 250 mls @ 166.7 mls/hr IVPB Q24H [facility] Last Admin: 06/05/17 01:16 Dose: 166.7 mls/hr Ceftriaxone Sodium 1 gm/ (Sodium Chloride) 100 mls @ 200 mls/hr IVPB DAILY [facility] Last Admin: 06/05/17 09:37 Dose: 200 mls/hr Azithromycin 500 mg/ Sodium (Chloride) 250 mls @ 167 mls/hr IVPB Q24H [facility] Pantoprazole Sodium (Protonix Ec Tab) 40 mg PO DAILY [facility] Last Admin: 06/05/17 09:37 Dose: 40 mg Rosuvastatin Calcium (Crestor) 5 mg PO HS [facility] Last Admin: 06/04/17 21:09 Dose: 5 mg Tamsulosin HCl (Flomax) 0.4 mg PO DAILY [facility] Last Admin: 06/05/17 09:37 Dose: 0.4 mg Tramadol HCl (Ultram) 50 mg PO TID PRN PRN Reason: Pain, moderate (4-7) Last Admin: 06/05/17 13:13 Dose: 50 mg - Labs Labs: 06/04/17 05:48 06/04/17 05:48 - Constitutional Appears: Well - Head Exam Head Exam: ATRAUMATIC, NORMAL INSPECTION, NORMOCEPHALIC - Eye Exam Eye Exam: EOMI, Normal appearance, PERRL Pupil Exam: NORMAL ACCOMODATION, PERRL - ENT Exam ENT Exam: Mucous Membranes Moist, Normal Exam - Respiratory Exam Respiratory Exam: Clear to Ausculation Bilateral, NORMAL BREATHING PATTERN - Cardiovascular Exam Cardiovascular Exam: REGULAR RHYTHM, +S1, +S2. absent: Murmur - GI/Abdominal Exam GI & Abdominal Exam: Soft, Normal Bowel Sounds. absent: Tenderness - Rectal Exam Rectal Exam: Deferred - Extremities Exam Extremities Exam: Full ROM, Normal Capillary Refill, Normal Inspection. absent : Joint Swelling, Pedal Edema - Back Exam Back Exam: NORMAL INSPECTION Assessment and Plan (1) Bandemia Status: Acute (2) Calculus of proximal left ureter Status: Acute (3) Elevated BP Status: Acute (4) Fever Status: Acute (5) Fever of unknown origin Status: Acute (6) Hepatosplenomegaly Status: Acute (7) Hypertension Status: Acute (8) Intractable pain Status: Acute (9) Nausea & vomiting Status: Acute (10) Pericardial effusion Status: Acute (11) Prophylactic measure Status: Acute (12) Renal colic Status: Acute (13) Renal colic on left side Status: Acute (14) Rheumatoid arthritis Status: Acute (15) SIRS (systemic inflammatory response syndrome) Status: Acute (16) UTI (urinary tract infection) Status: Acute (17) Viral syndrome Status: Acute - Assessment and Plan (Free Text) Plan: Patient examined. Fever present. Laboratory investigation shows neutrophilia at 91.8%. Continue vancomycin and ceftriaxone and azithromycin. Continue acetaminophen. Continue supportive care.
--- NOTE | 2017-06-05 20:09 | PN ---
DATE: 06/05/2017 SUBJECTIVE: The patient denies any chest pain. She is feeling chilly. PHYSICAL EXAMINATION: VITAL SIGNS: Blood pressure 97/61, temperature is 101.4, respiration 20. HEENT: Pale conjunctivae. CHEST: Clear. HEART: S1, S2 regular. EXTREMITIES: No edema. LABORATORY DATA: Blood cultures are negative after 24 hours. ASSESSMENT: 1. Recurrent fever, rule out bacterial endocarditis. 2. History of recent urinary tract infection. RECOMMENDATIONS: Continue current IV vancomycin, IV Zithromax, and IV Rocephin. Transesophageal echo is discussed with the patient and will be scheduled for next week. Claus Shukla MD
[2017-06-06] MEDS: Azithromycin 500 MG in Sodium Chloride 0.9% 250 ML IVPB SCH ×2 (00:14→23:45)
--- NOTE | 2017-06-06 00:17 | CARD ---
APPROVED REPORT EXAM: Two-dimensional and M-mode echocardiogram with Doppler and color Doppler. Other Information Quality : GoodRhythm : INDICATION Fatigue Infection: Fever 2D DIMENSIONS IVSd0.8 (0.7-1.1cm)LVDd5.0 (3.9-5.9cm) PWd0.8 (0.7-1.1cm)LVDs3.3 (2.5-4.0cm) FS (%) 34.4 %LVEF (%)63.1 (>50%) M-Mode DIMENSIONS Left Atrium (MM)3.23 (2.5-4.0cm)Aortic Root3.41 (2.2-3.7cm) Aortic Cusp Exc.2.03 (1.5-2.0cm) Aortic Valve AI P 1/2 [id number] Mitral Valve MV E Utlyiquf246.8cm/sMV A Pbeznjfi294.4cm/sE/A ratio1.1 TDI E/Lateral E'0.0E/Medial E'0.0 Tricuspid Valve TR Peak [id number]/sTR Peak Gr.[id number] LEFT VENTRICLE The left ventricle is normal size. There is normal left ventricular wall thickness. Left ventricle systolic function is normal. The Ejection Fraction is 60-65%. There is normal LV segmental wall motion. The left ventricular diastolic function is normal. No left ventricle thrombus noted on this study. RIGHT VENTRICLE The right ventricle is normal size. The right ventricular systolic function is normal. ATRIA The left atrium size is normal. The right atrium size is normal. AORTIC VALVE The aortic valve is mildly to moderately sclerotic. The aortic valve is trileaflet. There is mild aortic regurgitation. There is no aortic valvular stenosis. There is no aortic valvular vegetation. MITRAL VALVE Mitral annular calcification is mild. There is no evidence of mitral valve prolapse. There is no mitral valve stenosis. Mitral regurgitation is mild to moderate. TRICUSPID VALVE The tricuspid valve is normal in structure. There is mild tricuspid regurgitation. Right ventricular systolic pressure is estimated at 30-40 mmHg. There is no pulmonary hypertension. There is no tricuspid valve prolapse or vegetation. There is no tricuspid valve stenosis. PULMONIC VALVE The pulmonic valve is not well visualized. There is no pulmonic valvular regurgitation. GREAT VESSELS The aortic root is normal in size. The IVC is normal in size and collapses >50% with inspiration. PERICARDIAL EFFUSION There is no pericardial effusion. There is no pleural effusion. <Conclusion> The left ventricle is normal size. Left ventricle systolic function is normal. The Ejection Fraction is 60-65%. The left ventricular diastolic function is normal. The right ventricle is normal size. The right ventricular systolic function is normal. The left atrium size is normal. The right atrium size is normal. There is mild aortic regurgitation. Mitral regurgitation is mild to moderate. There is mild tricuspid regurgitation.
[2017-06-06] MEDS: Enoxaparin 40 mg Syringe SC SCH (09:43)
[2017-06-06] MEDS: Pantoprazole 40 mg EC Tab PO SCH (09:43)
--- NOTE | 2017-06-06 14:22 | CP.PCM.PN ---
Subjective - Date & Time of Evaluation Date of Evaluation: 06/06/17 Time of Evaluation: 09:00 - Subjective Subjective: less fever no pain Objective - Vital Signs/Intake and Output Vital Signs (last 24 hours): Temp Pulse Resp BP Pulse Ox 98.4 F 99 H 20 93/59 L 98 06/06/17 06:50 06/06/17 06:50 06/05/17 23:45 06/06/17 06:50 06/05/17 23:45 - Medications Medications: Current Medications Acetaminophen (Tylenol 325mg Tab) 650 mg PO Q6 PRN PRN Reason: Fever >100.4 F Last Admin: 06/05/17 02:27 Dose: 650 mg Enoxaparin Sodium (Lovenox) 40 mg SC DAILY [facility] Last Admin: 06/06/17 09:43 Dose: 40 mg Ergocalciferol (Drisdol 50,000 Intl Units Cap) 1 cap PO QWK [facility] Last Admin: 06/04/17 10:20 Dose: 1 cap Sodium Chloride (Sodium Chloride 0.9%) 1,000 mls @ 75 mls/hr IV .[id number] [facility] Last Admin: 06/05/17 16:32 Dose: Not Given Vancomycin HCl 1 gm/ Sodium (Chloride) 250 mls @ 166.7 mls/hr IVPB Q24H [facility] Last Admin: 06/06/17 00:14 Dose: 166.7 mls/hr Ceftriaxone Sodium 1 gm/ (Sodium Chloride) 100 mls @ 200 mls/hr IVPB DAILY [facility] Last Admin: 06/06/17 09:43 Dose: 200 mls/hr Azithromycin 500 mg/ Sodium (Chloride) 250 mls @ 167 mls/hr IVPB Q24H [facility] Last Admin: 06/06/17 00:14 Dose: 167 mls/hr Pantoprazole Sodium (Protonix Ec Tab) 40 mg PO DAILY [facility] Last Admin: 06/06/17 09:43 Dose: 40 mg Rosuvastatin Calcium (Crestor) 5 mg PO HS [facility] Last Admin: 06/05/17 22:09 Dose: 5 mg Tamsulosin HCl (Flomax) 0.4 mg PO DAILY [facility] Last Admin: 06/06/17 09:43 Dose: 0.4 mg Tramadol HCl (Ultram) 50 mg PO TID PRN PRN Reason: Pain, moderate (4-7) Last Admin: 06/05/17 13:13 Dose: 50 mg - Labs Labs: 06/04/17 05:48 06/04/17 05:48 - Constitutional Appears: Non-toxic, Chronically Ill - Head Exam Head Exam: NORMOCEPHALIC - Eye Exam Eye Exam: PERRL - ENT Exam ENT Exam: Mucous Membranes Dry - Neck Exam Neck Exam: absent: Lymphadenopathy - Respiratory Exam Respiratory Exam: Decreased Breath Sounds - Cardiovascular Exam Cardiovascular Exam: REGULAR RHYTHM - GI/Abdominal Exam GI & Abdominal Exam: Distended, Soft. absent: Tenderness - Rectal Exam Rectal Exam: Deferred - Extremities Exam Extremities Exam: absent: Pedal Edema - Back Exam Back Exam: absent: CVA tenderness (L), CVA tenderness (R) - Neurological Exam Neurological Exam: Alert, Awake, Oriented x3 Assessment and Plan (1) Fever of unknown origin Status: Acute - Assessment and Plan (Free Text) Assessment: r/o cholecystitis recurrent fever abn LFT
--- NOTE | 2017-06-06 17:09 | CP.PCM.PN ---
Subjective - Date & Time of Evaluation Date of Evaluation: 06/06/17 Time of Evaluation: 12:00 - Subjective Subjective: clinically same Objective - Vital Signs/Intake and Output Vital Signs (last 24 hours): Temp Pulse Resp BP Pulse Ox 97.9 F 102 H 20 95/56 L 97 06/06/17 08:00 06/06/17 08:00 06/06/17 08:00 06/06/17 08:00 06/06/17 08:00 - Medications Medications: Current Medications Acetaminophen (Tylenol 325mg Tab) 650 mg PO Q6 PRN PRN Reason: Fever >100.4 F Last Admin: 06/05/17 02:27 Dose: 650 mg Enoxaparin Sodium (Lovenox) 40 mg SC DAILY [facility] Last Admin: 06/06/17 09:43 Dose: 40 mg Ergocalciferol (Drisdol 50,000 Intl Units Cap) 1 cap PO QWK [facility] Last Admin: 06/04/17 10:20 Dose: 1 cap Sodium Chloride (Sodium Chloride 0.9%) 1,000 mls @ 75 mls/hr IV .[id number] [facility] Last Admin: 06/05/17 16:32 Dose: Not Given Vancomycin HCl 1 gm/ Sodium (Chloride) 250 mls @ 166.7 mls/hr IVPB Q24H [facility] Last Admin: 06/06/17 00:14 Dose: 166.7 mls/hr Ceftriaxone Sodium 1 gm/ (Sodium Chloride) 100 mls @ 200 mls/hr IVPB DAILY [facility] Last Admin: 06/06/17 09:43 Dose: 200 mls/hr Azithromycin 500 mg/ Sodium (Chloride) 250 mls @ 167 mls/hr IVPB Q24H [facility] Last Admin: 06/06/17 00:14 Dose: 167 mls/hr Pantoprazole Sodium (Protonix Ec Tab) 40 mg PO DAILY [facility] Last Admin: 06/06/17 09:43 Dose: 40 mg Rosuvastatin Calcium (Crestor) 5 mg PO HS [facility] Last Admin: 06/05/17 22:09 Dose: 5 mg Tamsulosin HCl (Flomax) 0.4 mg PO DAILY [facility] Last Admin: 06/06/17 09:43 Dose: 0.4 mg Tramadol HCl (Ultram) 50 mg PO TID PRN PRN Reason: Pain, moderate (4-7) Last Admin: 06/05/17 13:13 Dose: 50 mg - Labs Labs: 06/04/17 05:48 06/04/17 05:48 - Constitutional Appears: Well - Head Exam Head Exam: ATRAUMATIC, NORMAL INSPECTION, NORMOCEPHALIC - Eye Exam Eye Exam: EOMI, Normal appearance, PERRL Pupil Exam: NORMAL ACCOMODATION, PERRL - ENT Exam ENT Exam: Mucous Membranes Moist, Normal Exam - Neck Exam Neck Exam: Full ROM, Normal Inspection. absent: Lymphadenopathy - Respiratory Exam Respiratory Exam: Clear to Ausculation Bilateral, NORMAL BREATHING PATTERN - Cardiovascular Exam Cardiovascular Exam: REGULAR RHYTHM, +S1, +S2. absent: Murmur - GI/Abdominal Exam GI & Abdominal Exam: Soft, Normal Bowel Sounds. absent: Tenderness - Rectal Exam Rectal Exam: Deferred - Extremities Exam Extremities Exam: Full ROM, Normal Capillary Refill, Normal Inspection. absent : Joint Swelling, Pedal Edema - Back Exam Back Exam: NORMAL INSPECTION Assessment and Plan (1) Fever of unknown origin Status: Acute (2) Bandemia Status: Acute (3) Calculus of proximal left ureter Status: Acute (4) Elevated BP Status: Acute (5) Fever Status: Acute (6) Hepatosplenomegaly Status: Acute (7) Hypertension Status: Acute (8) Intractable pain Status: Acute (9) Nausea & vomiting Status: Acute (10) Pericardial effusion Status: Acute (11) Prophylactic measure Status: Acute (12) Renal colic Status: Acute (13) Renal colic on left side Status: Acute (14) Rheumatoid arthritis Status: Acute (15) SIRS (systemic inflammatory response syndrome) Status: Acute (16) UTI (urinary tract infection) Status: Acute (17) Viral syndrome Status: Acute - Assessment and Plan (Free Text) Plan: Patient examined. Fever still present. Continue vancomycin, ceftriaxone and azithromycin. Continue acetaminophen. Continue supportive care.
--- NOTE | 2017-06-06 18:58 | PN ---
DATE: SUBJECTIVE: The patient denies any chest pain. She has no chills today. PHYSICAL EXAMINATION VITAL SIGNS: Blood pressure 93/59, heart rate 99, temperature 98.4. Physical exam was unremarkable. LABORATORY DATA: Blood cultures negative after 48 hours. Rheumatoid panel is negative. DAYSI titer is still pending. Official echocardiographic study report, ejection fraction 60% to 65%, normal right ventricular systolic function, mild aortic insufficiency, [id number] mitral insufficiency. ASSESSMENT: 1. Fever of unknown origin. 2. Rule out acute endocarditis. 3. Mild anemia. RECOMMENDATIONS: Continue current IV Rocephin, IV Zithromax and IV vancomycin. Transesophageal echo will be scheduled for Wednesday once the schedule is known to me tomorrow. Claus Shukla MD
[2017-06-06] MEDS: Sodium Chloride 0.9% 1,000 ML IV SCH ×2 (19:40→21:41)
--- NOTE | 2017-06-07 11:27 | CP.PCM.PN ---
Subjective - Date & Time of Evaluation Date of Evaluation: 06/07/17 Time of Evaluation: 09:00 - Subjective Subjective: going for scan iv rx in progress Objective - Vital Signs/Intake and Output Vital Signs (last 24 hours): Temp Pulse Resp BP Pulse Ox 98.0 F 109 H 20 121/71 95 06/07/17 07:47 06/07/17 07:47 06/07/17 07:47 06/07/17 07:47 06/07/17 07:47 - Medications Medications: Current Medications Acetaminophen (Tylenol 325mg Tab) 650 mg PO Q6 PRN PRN Reason: Fever >100.4 F Last Admin: 06/05/17 02:27 Dose: 650 mg Enoxaparin Sodium (Lovenox) 40 mg SC DAILY [facility] Last Admin: 06/06/17 09:43 Dose: 40 mg Ergocalciferol (Drisdol 50,000 Intl Units Cap) 1 cap PO QWK [facility] Last Admin: 06/04/17 10:20 Dose: 1 cap Vancomycin HCl 1 gm/ Sodium (Chloride) 250 mls @ 166.7 mls/hr IVPB Q24H [facility] Last Admin: 06/07/17 01:30 Dose: 166.7 mls/hr Ceftriaxone Sodium 1 gm/ (Sodium Chloride) 100 mls @ 200 mls/hr IVPB DAILY [facility] Last Admin: 06/06/17 09:43 Dose: 200 mls/hr Azithromycin 500 mg/ Sodium (Chloride) 250 mls @ 167 mls/hr IVPB Q24H [facility] Last Admin: 06/06/17 23:45 Dose: 167 mls/hr Pantoprazole Sodium (Protonix Ec Tab) 40 mg PO DAILY [facility] Last Admin: 06/06/17 09:43 Dose: 40 mg Rosuvastatin Calcium (Crestor) 5 mg PO HS [facility] Last Admin: 06/06/17 21:41 Dose: 5 mg Tamsulosin HCl (Flomax) 0.4 mg PO DAILY [facility] Last Admin: 06/06/17 09:43 Dose: 0.4 mg Tramadol HCl (Ultram) 50 mg PO TID PRN PRN Reason: Pain, moderate (4-7) Last Admin: 06/05/17 13:13 Dose: 50 mg - Labs Labs: 06/04/17 05:48 06/04/17 05:48 - Constitutional Appears: Non-toxic, Chronically Ill - Head Exam Head Exam: NORMOCEPHALIC - Eye Exam Eye Exam: absent: Scleral icterus - ENT Exam ENT Exam: Mucous Membranes Dry - Neck Exam Neck Exam: absent: Lymphadenopathy - Respiratory Exam Respiratory Exam: Decreased Breath Sounds - Cardiovascular Exam Cardiovascular Exam: REGULAR RHYTHM - GI/Abdominal Exam GI & Abdominal Exam: Distended, Soft - Rectal Exam Rectal Exam: Deferred - Exam Exam: NORMAL INSPECTION Assessment and Plan (1) Fever of unknown origin Status: Acute
[2017-06-07] MEDS: Pantoprazole 40 mg EC Tab PO SCH (11:33)
[2017-06-07] MEDS: Enoxaparin 40 mg Syringe SC SCH (11:34)
--- NOTE | 2017-06-07 14:48 | NM ---
PROCEDURE: Nuclear Medicine Hepatobiliary Scan HISTORY: fuo, cholelithiasis, abn lft's COMPARISON: 05/30/2017 CT abdomen and pelvis. TECHNIQUE: 5.1 mCi of technetium 99m Mebrofenin was administered intravenously. Planar images of the abdomen were obtained at 5 min intervals to 60 mins. Delayed images were also obtained. FINDINGS: LIVER: Timely and homogenous uptake. COMMON BILE DUCT: identified at 10 mins. GALLBLADDER: identified at 10 mins. SMALL BOWEL: Identified at 15 mins. IMPRESSION: Normal Hepatobiliary Scan. The cystic duct is patent.
--- NOTE | 2017-06-07 19:24 | PN ---
DATE: SUBJECTIVE: The patient denies any fever or chills. PHYSICAL EXAMINATION: VITAL SIGNS: Blood pressure 121/71, heart rate 109, temperature 98, respirations 20. HEENT: Pale conjunctivae. CHEST: Clear. HEART: S1, S2, regular. EXTREMITIES: No edema. LABORATORY DATA: Blood cultures negative after 3 days. Hepatobiliary scan is negative. ASSESSMENT: 1. Fever of unknown origin. 2. History of recent urinary tract infection. RECOMMENDATIONS: Continue IV Zithromax, IV Rocephin, and IV vancomycin. Patient is scheduled for EMI tomorrow. Case was discussed with the patient, her family, and the primary physician, Dr. Singh. Claus Shukla MD
--- NOTE | 2017-06-07 19:38 | CP.PCM.PN ---
Subjective - Date & Time of Evaluation Date of Evaluation: 06/07/17 Time of Evaluation: 09:20 - Subjective Subjective: clinically same Objective - Vital Signs/Intake and Output Vital Signs (last 24 hours): Temp Pulse Resp BP Pulse Ox 98.2 F 94 H 20 106/67 96 06/07/17 15:52 06/07/17 16:20 06/07/17 15:52 06/07/17 15:52 06/07/17 15:52 - Medications Medications: Current Medications Acetaminophen (Tylenol 325mg Tab) 650 mg PO Q6 PRN PRN Reason: Fever >100.4 F Last Admin: 06/05/17 02:27 Dose: 650 mg Enoxaparin Sodium (Lovenox) 40 mg SC DAILY [facility] Last Admin: 06/07/17 11:34 Dose: Not Given Ergocalciferol (Drisdol 50,000 Intl Units Cap) 1 cap PO QWK [facility] Last Admin: 06/04/17 10:20 Dose: 1 cap Vancomycin HCl 1 gm/ Sodium (Chloride) 250 mls @ 166.7 mls/hr IVPB Q24H [facility] Last Admin: 06/07/17 01:30 Dose: 166.7 mls/hr Ceftriaxone Sodium 1 gm/ (Sodium Chloride) 100 mls @ 200 mls/hr IVPB DAILY [facility] Last Admin: 06/07/17 11:33 Dose: 200 mls/hr Azithromycin 500 mg/ Sodium (Chloride) 250 mls @ 167 mls/hr IVPB Q24H [facility] Last Admin: 06/06/17 23:45 Dose: 167 mls/hr Pantoprazole Sodium (Protonix Ec Tab) 40 mg PO DAILY [facility] Last Admin: 06/07/17 11:33 Dose: 40 mg Rosuvastatin Calcium (Crestor) 5 mg PO HS [facility] Last Admin: 06/06/17 21:41 Dose: 5 mg Tamsulosin HCl (Flomax) 0.4 mg PO DAILY [facility] Last Admin: 06/07/17 11:33 Dose: 0.4 mg Tramadol HCl (Ultram) 50 mg PO TID PRN PRN Reason: Pain, moderate (4-7) Last Admin: 06/05/17 13:13 Dose: 50 mg - Labs Labs: 06/04/17 05:48 06/04/17 05:48 Assessment and Plan (1) Fever of unknown origin Status: Acute (2) Bandemia Status: Acute (3) Calculus of proximal left ureter Status: Acute (4) Elevated BP Status: Acute (5) Fever Status: Acute (6) Hepatosplenomegaly Status: Acute (7) Hypertension Status: Acute (8) Intractable pain Status: Acute (9) Nausea & vomiting Status: Acute (10) Pericardial effusion Status: Acute (11) Prophylactic measure Status: Acute (12) Renal colic Status: Acute (13) Renal colic on left side Status: Acute (14) Rheumatoid arthritis Status: Acute (15) SIRS (systemic inflammatory response syndrome) Status: Acute (16) UTI (urinary tract infection) Status: Acute (17) Viral syndrome Status: Acute
[2017-06-08] MEDS: Azithromycin 500 MG in Sodium Chloride 0.9% 250 ML IVPB SCH (02:00)
[2017-06-08] MEDS: Enoxaparin 40 mg Syringe SC SCH (11:00)
[2017-06-08] MEDS: Pantoprazole 40 mg EC Tab PO SCH (11:00)
--- NOTE | 2017-06-08 16:35 | PN ---
SUBJECTIVE: The patient denies any chest pain. She is placed on isolation to rule out TB. PHYSICAL EXAMINATION VITAL SIGNS: Blood pressure 128/81, heart rate 96, temperature 97.4. HEENT: Normocephalic. CHEST: Minimal rhonchi. HEART: S1 and S2, regular. EXTREMITIES: No edema. ASSESSMENT: 1. Fever of unknown origin. 2. Rule out pulmonary tuberculosis. RECOMMENDATIONS: Continue current management. Because of isolation issues, could not be performed today and is postponed for tomorrow. Case was discussed with the patient, her family and the primary physician. Claus Shukla MD
--- NOTE | 2017-06-08 17:36 | CP.PCM.PN ---
Subjective - Date & Time of Evaluation Date of Evaluation: 06/08/17 Time of Evaluation: 08:40 - Subjective Subjective: clinically same Objective - Vital Signs/Intake and Output Vital Signs (last 24 hours): Temp Pulse Resp BP Pulse Ox 98.2 F 96 H 20 117/74 96 06/08/17 15:24 06/08/17 15:24 06/08/17 15:24 06/08/17 15:24 06/08/17 15:24 Intake and Output: 06/08/17 06/08/17 06:59 18:59 Output Total 500 Balance -500 - Medications Medications: Current Medications Acetaminophen (Tylenol 325mg Tab) 650 mg PO Q6 PRN PRN Reason: Fever >100.4 F Last Admin: 06/05/17 02:27 Dose: 650 mg Enoxaparin Sodium (Lovenox) 40 mg SC DAILY [facility] Last Admin: 06/08/17 11:00 Dose: Not Given Ergocalciferol (Drisdol 50,000 Intl Units Cap) 1 cap PO QWK [facility] Last Admin: 06/04/17 10:20 Dose: 1 cap Vancomycin HCl 1 gm/ Sodium (Chloride) 250 mls @ 166.7 mls/hr IVPB Q24H [facility] Last Admin: 06/07/17 23:54 Dose: 166.7 mls/hr Ceftriaxone Sodium 1 gm/ (Sodium Chloride) 100 mls @ 200 mls/hr IVPB DAILY [facility] Last Admin: 06/08/17 11:00 Dose: 200 mls/hr Azithromycin 500 mg/ Sodium (Chloride) 250 mls @ 167 mls/hr IVPB Q24H [facility] Last Admin: 06/08/17 02:00 Dose: 167 mls/hr Pantoprazole Sodium (Protonix Ec Tab) 40 mg PO DAILY [facility] Last Admin: 06/08/17 11:00 Dose: Not Given Rosuvastatin Calcium (Crestor) 5 mg PO HS [facility] Last Admin: 06/07/17 23:51 Dose: 5 mg Tamsulosin HCl (Flomax) 0.4 mg PO DAILY [facility] Last Admin: 06/08/17 11:00 Dose: Not Given Tramadol HCl (Ultram) 50 mg PO TID PRN PRN Reason: Pain, moderate (4-7) Last Admin: 06/05/17 13:13 Dose: 50 mg - Labs Labs: 06/04/17 05:48 06/04/17 05:48 - Constitutional Appears: Well - Head Exam Head Exam: ATRAUMATIC, NORMAL INSPECTION, NORMOCEPHALIC - Eye Exam Eye Exam: EOMI, Normal appearance, PERRL Pupil Exam: NORMAL ACCOMODATION, PERRL - ENT Exam ENT Exam: Mucous Membranes Moist, Normal Exam - Neck Exam Neck Exam: Full ROM, Normal Inspection. absent: Lymphadenopathy - Respiratory Exam Respiratory Exam: Decreased Breath Sounds - Cardiovascular Exam Cardiovascular Exam: REGULAR RHYTHM, +S1, +S2 - GI/Abdominal Exam GI & Abdominal Exam: Soft, Diminished Bowel Sounds - Rectal Exam Rectal Exam: Deferred Assessment and Plan (1) Fever of unknown origin Status: Acute (2) Bandemia Status: Acute (3) Calculus of proximal left ureter Status: Acute (4) Elevated BP Status: Acute (5) Fever Status: Acute (6) Hepatosplenomegaly Status: Acute (7) Hypertension Status: Acute (8) Intractable pain Status: Acute (9) Nausea & vomiting Status: Acute (10) Pericardial effusion Status: Acute (11) Prophylactic measure Status: Acute (12) Renal colic Status: Acute (13) Renal colic on left side Status: Acute (14) Rheumatoid arthritis Status: Acute (15) SIRS (systemic inflammatory response syndrome) Status: Acute (16) UTI (urinary tract infection) Status: Acute (17) Viral syndrome Status: Acute
[2017-06-09] MEDS: Azithromycin 500 MG in Sodium Chloride 0.9% 250 ML IVPB SCH (01:05)
[2017-06-09] MEDS: Enoxaparin 40 mg Syringe SC SCH (10:35)
[2017-06-09] MEDS ORDERED: Lidocaine 4% (Laryng-O-Jet) Kit MM ONE (11:18)
[2017-06-09] MEDS ORDERED: Midazolam 2 MG/2 ML VIAL ONE (11:54)
[2017-06-09] MEDS ORDERED: Propofol 10 mg/ml Inj (20 ML) ONE (11:54)
[2017-06-09] MEDS ORDERED: Etomidate 20 mg/10ml Inj IV ONE (11:59)
--- NOTE | 2017-06-09 12:13 | CP.PCM.PN ---
Subjective - Date & Time of Evaluation Date of Evaluation: 06/09/17 Time of Evaluation: 08:00 - Subjective Subjective: fever less consider EMI Objective - Vital Signs/Intake and Output Vital Signs (last 24 hours): Temp Pulse Resp BP Pulse Ox 97.9 F 81 20 132/82 96 06/09/17 07:00 06/09/17 08:00 06/09/17 07:00 06/09/17 07:00 06/09/17 07:00 - Medications Medications: Current Medications Acetaminophen (Tylenol 325mg Tab) 650 mg PO Q6 PRN PRN Reason: Fever >100.4 F Last Admin: 06/05/17 02:27 Dose: 650 mg Enoxaparin Sodium (Lovenox) 40 mg SC DAILY [facility] Last Admin: 06/09/17 10:35 Dose: 40 mg Ergocalciferol (Drisdol 50,000 Intl Units Cap) 1 cap PO QWK [facility] Last Admin: 06/04/17 10:20 Dose: 1 cap Vancomycin HCl 1 gm/ Sodium (Chloride) 250 mls @ 166.7 mls/hr IVPB Q24H [facility] Last Admin: 06/09/17 01:03 Dose: 166.7 mls/hr Azithromycin 500 mg/ Sodium (Chloride) 250 mls @ 167 mls/hr IVPB Q24H [facility] Last Admin: 06/09/17 01:05 Dose: 167 mls/hr Pantoprazole Sodium (Protonix Ec Tab) 40 mg PO DAILY [facility] Last Admin: 06/08/17 11:00 Dose: Not Given Rosuvastatin Calcium (Crestor) 5 mg PO HS [facility] Last Admin: 06/08/17 22:14 Dose: 5 mg Tamsulosin HCl (Flomax) 0.4 mg PO DAILY [facility] Last Admin: 06/08/17 11:00 Dose: Not Given Tramadol HCl (Ultram) 50 mg PO TID PRN PRN Reason: Pain, moderate (4-7) Last Admin: 06/05/17 13:13 Dose: 50 mg - Labs Labs: 06/04/17 05:48 06/04/17 05:48 Assessment and Plan (1) Fever of unknown origin Status: Acute
[2017-06-09] MEDS: Pantoprazole 40 mg EC Tab PO SCH (13:38)
[2017-06-09 17:15] LABS: BASO # 0.1 K/uL (0.0-0.2); BASO % 1.2 % (0.0-2.0); EOS # 0.2 K/uL (0.0-0.7); EOS % 3.1 % (0.0-4.0); HEMATOCRIT 24.8 % (34.0-47.0); LYMPH # 1.4 K/uL (1.0-4.3); LYMPH % 22.3 % (20.0-40.0); MEAN CELL VOLUME 75.3 fL (81.0-99.0); MEAN CORPUSCULAR HEMOGLOBIN 23.7 pg (27.0-31.0); MEAN CORPUSCULAR HGB CONC 31.4 g/dL (33.0-37.0); MONO # 0.4 K/uL (0.0-0.8); MONO % 6.1 % (0.0-10.0); NRBC % 0.1 % (0.0-2.0); RED CELL DISTRIBUTION WIDTH 15.9 % (11.5-14.5); WHITE BLOOD COUNT 6.2 K/uL (4.8-10.8)
[2017-06-09 17:34] LABS: ALKALINE PHOSPHATASE 95 U/L (38-126); ALT/SGPT 50 U/L (9-52); AST/SGOT 29 U/L (14-36); BILIRUBIN,TOTAL 0.3 mg/dL (0.2-1.3); BLOOD UREA NITROGEN 6 mg/dL (7-17); CALCIUM 7.5 mg/dl (8.6-10.4); CARBON DIOXIDE 32 mmol/L (22-30); CHLORIDE 104 mmol/L (98-107); GFR AFRICAN-AMERICAN > 60; GLUCOSE,RANDOM 88 mg/dL (65-105); POTASSIUM 3.4 mmol/L (3.6-5.2); SODIUM 142 mmol/L (132-148); TOTAL PROTEIN 5.9 g/dL (6.3-8.3)
[2017-06-09] MEDS ORDERED: Potassium Chloride 20 mEq/15 ml LIQ UD PO ONE (18:00)
--- NOTE | 2017-06-09 18:02 | CP.PCM.PN ---
Subjective - Date & Time of Evaluation Date of Evaluation: 06/09/17 Time of Evaluation: 09:00 - Subjective Subjective: fever less recc Heme onc eval- severe anemia r/o lymphoma MDS etc Objective - Vital Signs/Intake and Output Vital Signs (last 24 hours): Temp Pulse Resp BP Pulse Ox 98.1 F 94 H 20 135/78 97 06/09/17 17:16 06/09/17 17:16 06/09/17 17:16 06/09/17 17:16 06/09/17 17:16 Intake and Output: 06/09/17 06/09/17 06:59 18:59 Intake Total 300 Balance 300 - Medications Medications: Current Medications Acetaminophen (Tylenol 325mg Tab) 650 mg PO Q6 PRN PRN Reason: Fever >100.4 F Last Admin: 06/05/17 02:27 Dose: 650 mg Enoxaparin Sodium (Lovenox) 40 mg SC DAILY [facility] Last Admin: 06/09/17 10:35 Dose: 40 mg Ergocalciferol (Drisdol 50,000 Intl Units Cap) 1 cap PO QWK [facility] Last Admin: 06/04/17 10:20 Dose: 1 cap Azithromycin 500 mg/ Sodium (Chloride) 250 mls @ 167 mls/hr IVPB Q24H [facility] Last Admin: 06/09/17 01:05 Dose: 167 mls/hr Vancomycin/Sodium Chloride (Vancomycin 1 Gm/Ns 200 Ml) 1 gm in 200 mls @ 133.333 mls/hr IVPB Q24H [facility] Stop: 06/10/17 02:14 Pantoprazole Sodium (Protonix Ec Tab) 40 mg PO DAILY [facility] Last Admin: 06/09/17 13:38 Dose: 40 mg Rosuvastatin Calcium (Crestor) 5 mg PO HS [facility] Last Admin: 06/08/17 22:14 Dose: 5 mg Tamsulosin HCl (Flomax) 0.4 mg PO DAILY [facility] Last Admin: 06/09/17 13:38 Dose: 0.4 mg Tramadol HCl (Ultram) 50 mg PO TID PRN PRN Reason: Pain, moderate (4-7) Last Admin: 06/05/17 13:13 Dose: 50 mg - Labs Labs: 06/09/17 17:07 06/09/17 17:07 Assessment and Plan (1) Fever of unknown origin Status: Acute
--- NOTE | 2017-06-09 19:25 | CP.PCM.PN ---
Subjective - Date & Time of Evaluation Date of Evaluation: 06/09/17 Time of Evaluation: 08:40 - Subjective Subjective: clinically same Objective - Vital Signs/Intake and Output Vital Signs (last 24 hours): Temp Pulse Resp BP Pulse Ox 98.1 F 94 H 20 135/78 97 06/09/17 17:16 06/09/17 17:16 06/09/17 17:16 06/09/17 17:16 06/09/17 17:16 Intake and Output: 06/09/17 06/10/17 18:59 06:59 Intake Total 300 Balance 300 - Medications Medications: Current Medications Acetaminophen (Tylenol 325mg Tab) 650 mg PO Q6 PRN PRN Reason: Fever >100.4 F Last Admin: 06/05/17 02:27 Dose: 650 mg Enoxaparin Sodium (Lovenox) 40 mg SC DAILY [facility] Last Admin: 06/09/17 10:35 Dose: 40 mg Ergocalciferol (Drisdol 50,000 Intl Units Cap) 1 cap PO QWK [facility] Last Admin: 06/04/17 10:20 Dose: 1 cap Azithromycin 500 mg/ Sodium (Chloride) 250 mls @ 167 mls/hr IVPB Q24H [facility] Last Admin: 06/09/17 01:05 Dose: 167 mls/hr Vancomycin/Sodium Chloride (Vancomycin 1 Gm/Ns 200 Ml) 1 gm in 200 mls @ 133.333 mls/hr IVPB Q24H [facility] Stop: 06/10/17 02:14 Pantoprazole Sodium (Protonix Ec Tab) 40 mg PO DAILY [facility] Last Admin: 06/09/17 13:38 Dose: 40 mg Rosuvastatin Calcium (Crestor) 5 mg PO HS [facility] Last Admin: 06/08/17 22:14 Dose: 5 mg Tamsulosin HCl (Flomax) 0.4 mg PO DAILY [facility] Last Admin: 06/09/17 13:38 Dose: 0.4 mg Tramadol HCl (Ultram) 50 mg PO TID PRN PRN Reason: Pain, moderate (4-7) Last Admin: 06/05/17 13:13 Dose: 50 mg - Labs Labs: 06/09/17 17:07 06/09/17 17:07 - Constitutional Appears: Well - Head Exam Head Exam: ATRAUMATIC, NORMAL INSPECTION, NORMOCEPHALIC - Eye Exam Eye Exam: EOMI, Normal appearance, PERRL Pupil Exam: NORMAL ACCOMODATION, PERRL - ENT Exam ENT Exam: Mucous Membranes Moist, Normal Exam - Neck Exam Neck Exam: Full ROM, Normal Inspection. absent: Lymphadenopathy - Respiratory Exam Respiratory Exam: Decreased Breath Sounds - Cardiovascular Exam Cardiovascular Exam: REGULAR RHYTHM, +S1, +S2 - GI/Abdominal Exam GI & Abdominal Exam: Soft, Diminished Bowel Sounds - Rectal Exam Rectal Exam: Deferred Assessment and Plan (1) Fever of unknown origin Status: Acute (2) Bandemia Status: Acute (3) Calculus of proximal left ureter Status: Acute (4) Elevated BP Status: Acute (5) Fever Status: Acute (6) Hepatosplenomegaly Status: Acute (7) Hypertension Status: Acute (8) Intractable pain Status: Acute (9) Nausea & vomiting Status: Acute (10) Pericardial effusion Status: Acute (11) Prophylactic measure Status: Acute (12) Renal colic Status: Acute (13) Renal colic on left side Status: Acute (14) Rheumatoid arthritis Status: Acute (15) SIRS (systemic inflammatory response syndrome) Status: Acute (16) UTI (urinary tract infection) Status: Acute (17) Viral syndrome Status: Acute
--- NOTE | 2017-06-09 20:25 | CARD ---
APPROVED REPORT EXAM: Transesophageal echocardiogram with color flow Doppler. INDICATION Infection : Rule out subacute bacterial endocarditis Mitral Valve E/A ratio0.0 TDI E/Lateral E'0.0E/Medial E'0.0 Reason For Test : Rule out endocarditis. PROCEDURE After obtaining informed consent, patient underwent transesophageal echo in the [employer] [facility] [employer] [facility]. Type of Sedation : Conscious Sedation Sedation was provided by anesthesiologist. Sedation was achieved with intravenously. Transesophageal probe was inserted and advanced into esophagus without difficulty. The EMI was performed without complications. Throughout the procedure, the blood pressure, pulse oximetry, cardiac rhythm, and rate were monitored. The patient tolerated the procedure without adverse effects. Recovery from conscious sedation was uneventful and vital signs were stable. LEFT VENTRICLE The left ventricle is normal size. There is normal left ventricular wall thickness. The left ventricular function is normal. The left ventricular ejection fraction is within the normal range. There is normal LV segmental wall motion. RIGHT VENTRICLE The right ventricle is normal size. There is normal right ventricular wall thickness. ATRIA The left atrium size is normal. The right atrium size is normal. AORTIC VALVE The aortic valve is moderately thickened. There is mild to moderate aortic regurgitation. MITRAL VALVE The mitral valve is normal in structure. Mitral regurgitation is mild to moderate. TRICUSPID VALVE The tricuspid valve is normal in structure. There is trace tricuspid regurgitation. <Conclusion> The aortic valve is moderately thickened. There is mild to moderate aortic regurgitation. The mitral valve is normal in structure. Mitral regurgitation is mild to moderate. No definite vegitation seen
[2017-06-09] MEDS ORDERED: Potassium Chloride 10 mEq ER Tab PO STA (23:14)
[2017-06-10] MEDS: Azithromycin 500 MG in Sodium Chloride 0.9% 250 ML IVPB SCH (00:12)
[2017-06-10] MEDS ORDERED: Vancomycin 1 gm/NS 200 ml 1 GM/200 ML BAG IVPB SCH (00:45)
[2017-06-10 07:34] LABS: BASO # 0.1 K/uL (0.0-0.2); BASO % 0.9 % (0.0-2.0); EOS # 0.2 K/uL (0.0-0.7); EOS % 3.4 % (0.0-4.0); HEMATOCRIT 24.2 % (34.0-47.0); LYMPH # 1.3 K/uL (1.0-4.3); LYMPH % 20.4 % (20.0-40.0); MEAN CELL VOLUME 74.8 fL (81.0-99.0); MEAN CORPUSCULAR HEMOGLOBIN 24.2 pg (27.0-31.0); MEAN CORPUSCULAR HGB CONC 32.4 g/dL (33.0-37.0); MEAN PLATELET VOLUME 8.1 fL (7.2-11.7); MONO # 0.4 K/uL (0.0-0.8); MONO % 5.9 % (0.0-10.0); NRBC % 0.1 % (0.0-2.0); RED CELL DISTRIBUTION WIDTH 15.8 % (11.5-14.5); WHITE BLOOD COUNT 6.2 K/uL (4.8-10.8)
[2017-06-10 08:14] LABS: BILIRUBIN,DIRECT 0.3 mg/dL (0.0-0.4); BILIRUBIN,TOTAL 0.3 mg/dL (0.2-1.3)
[2017-06-10 08:54] LABS: FOLATE 14.7 ng/mL
[2017-06-10 09:37] LABS: BLOOD UREA NITROGEN 6 mg/dL (7-17); CALCIUM 7.6 mg/dl (8.6-10.4); CARBON DIOXIDE 29 mmol/L (22-30); CHLORIDE 106 mmol/L (98-107); GFR AFRICAN-AMERICAN > 60; GLUCOSE,RANDOM 95 mg/dL (65-105); POTASSIUM 3.7 mmol/L (3.6-5.2); SODIUM 142 mmol/L (132-148)
[2017-06-10 09:59] LABS: IRON 28 ug/dL (37-170)
[2017-06-10] MEDS: Enoxaparin 40 mg Syringe SC SCH (10:29)
[2017-06-10] MEDS: Pantoprazole 40 mg EC Tab PO SCH (10:29)
--- NOTE | 2017-06-10 10:42 | CP.PCM.PN ---
Subjective - Date & Time of Evaluation Date of Evaluation: 06/10/17 Time of Evaluation: 10:25 - Subjective Subjective: [employer] NOTES Patient seen today , denies any fever, chills, cough, abdominal pain , N/V/D very anxious , about test result a febrile Objective - Vital Signs/Intake and Output Vital Signs (last 24 hours): Temp Pulse Resp BP Pulse Ox 97.9 F 93 H 20 141/80 95 06/10/17 08:14 06/10/17 08:14 06/10/17 08:14 06/10/17 08:14 06/10/17 08:14 - Medications Medications: Current Medications Acetaminophen (Tylenol 325mg Tab) 650 mg PO Q6 PRN PRN Reason: Fever >100.4 F Last Admin: 06/05/17 02:27 Dose: 650 mg Enoxaparin Sodium (Lovenox) 40 mg SC DAILY [facility] Last Admin: 06/10/17 10:29 Dose: 40 mg Ergocalciferol (Drisdol 50,000 Intl Units Cap) 1 cap PO QWK [facility] Last Admin: 06/04/17 10:20 Dose: 1 cap Azithromycin 500 mg/ Sodium (Chloride) 250 mls @ 167 mls/hr IVPB Q24H [facility] Last Admin: 06/10/17 00:12 Dose: 167 mls/hr Pantoprazole Sodium (Protonix Ec Tab) 40 mg PO DAILY [facility] Last Admin: 06/10/17 10:29 Dose: 40 mg Rosuvastatin Calcium (Crestor) 5 mg PO HS [facility] Last Admin: 06/09/17 22:32 Dose: 5 mg Tamsulosin HCl (Flomax) 0.4 mg PO DAILY [facility] Last Admin: 06/10/17 10:29 Dose: 0.4 mg Tramadol HCl (Ultram) 50 mg PO TID PRN PRN Reason: Pain, moderate (4-7) Last Admin: 06/05/17 13:13 Dose: 50 mg - Labs Labs: 06/10/17 07:07 06/10/17 07:07 Assessment and Plan - Assessment and Plan (Free Text) Assessment: A/P 67 yr old female admitted for fever of unknown orgin s/p EMI negative for vegetation pt very anxious regarding her test result , Discussed with daughter (Lydia) over phone as per patient request ,all questions an d concerns addressed D/W Dr. Ayala , IRON iv and procrit support further management as per Dr. Jacklyn alicia, Dr. Dennis Ayala
--- NOTE | 2017-06-10 15:44 | PN ---
DATE: SUBJECTIVE: The patient denies chest pain or shortness of breath. She is able to swallow. PHYSICAL EXAMINATION: VITAL SIGNS: Blood pressure 141/80, heart rate 93, temperature 97.9, respirations 20. LABORATORY DATA: Today's hemoglobin and hematocrit 7.8 and 24.2. White count and platelet count are within normal limits. Today's SMA-7 is within normal limits except for BUN of 6, calcium of 7.6. Blood cultures negative after 5 days. ASSESSMENT: 1. Fever of unknown origin. 2. There is thickened aortic cusp with [id number] aortic stenosis, but there is no evidence of gross vegetation. May consider repeat transthoracic echocardiographic study in a month period if patient continues to have unrelenting fever. Claus Shukla MD
--- NOTE | 2017-06-10 18:17 | CP.PCM.PN ---
Subjective - Date & Time of Evaluation Date of Evaluation: 06/10/17 Time of Evaluation: 09:00 - Subjective Subjective: clinically same Objective - Vital Signs/Intake and Output Vital Signs (last 24 hours): Temp Pulse Resp BP Pulse Ox 97.9 F 88 20 135/81 95 06/10/17 15:23 06/10/17 15:23 06/10/17 15:23 06/10/17 15:23 06/10/17 15:23 Intake and Output: 06/10/17 06/10/17 06:59 18:59 Intake Total 400 Balance 400 - Medications Medications: Current Medications Acetaminophen (Tylenol 325mg Tab) 650 mg PO Q6 PRN PRN Reason: Fever >100.4 F Last Admin: 06/05/17 02:27 Dose: 650 mg Enoxaparin Sodium (Lovenox) 40 mg SC DAILY [facility] Last Admin: 06/10/17 10:29 Dose: 40 mg Ergocalciferol (Drisdol 50,000 Intl Units Cap) 1 cap PO QWK [facility] Last Admin: 06/04/17 10:20 Dose: 1 cap Azithromycin 500 mg/ Sodium (Chloride) 250 mls @ 167 mls/hr IVPB Q24H [facility] Last Admin: 06/10/17 00:12 Dose: 167 mls/hr Pantoprazole Sodium (Protonix Ec Tab) 40 mg PO DAILY [facility] Last Admin: 06/10/17 10:29 Dose: 40 mg Rosuvastatin Calcium (Crestor) 5 mg PO HS [facility] Last Admin: 06/09/17 22:32 Dose: 5 mg Tamsulosin HCl (Flomax) 0.4 mg PO DAILY [facility] Last Admin: 06/10/17 10:29 Dose: 0.4 mg Tramadol HCl (Ultram) 50 mg PO TID PRN PRN Reason: Pain, moderate (4-7) Last Admin: 06/05/17 13:13 Dose: 50 mg - Labs Labs: 06/10/17 07:07 06/10/17 07:07 - Constitutional Appears: Well - Head Exam Head Exam: ATRAUMATIC, NORMAL INSPECTION, NORMOCEPHALIC - Eye Exam Eye Exam: EOMI, Normal appearance, PERRL Pupil Exam: NORMAL ACCOMODATION, PERRL - ENT Exam ENT Exam: Mucous Membranes Moist, Normal Exam - Neck Exam Neck Exam: Full ROM, Normal Inspection. absent: Lymphadenopathy - Respiratory Exam Respiratory Exam: Decreased Breath Sounds - Cardiovascular Exam Cardiovascular Exam: REGULAR RHYTHM, +S1, +S2 - GI/Abdominal Exam GI & Abdominal Exam: Soft, Diminished Bowel Sounds - Rectal Exam Rectal Exam: Deferred Assessment and Plan (1) Fever of unknown origin Status: Acute (2) Bandemia Status: Acute (3) Calculus of proximal left ureter Status: Acute (4) Elevated BP Status: Acute (5) Fever Status: Acute (6) Hepatosplenomegaly Status: Acute (7) Hypertension Status: Acute (8) Intractable pain Status: Acute (9) Nausea & vomiting Status: Acute (10) Pericardial effusion Status: Acute (11) Prophylactic measure Status: Acute (12) Renal colic Status: Acute (13) Renal colic on left side Status: Acute (14) Rheumatoid arthritis Status: Acute (15) SIRS (systemic inflammatory response syndrome) Status: Acute (16) UTI (urinary tract infection) Status: Acute (17) Viral syndrome Status: Acute
--- NOTE | 2017-06-10 18:42 | CP.PCM.PN ---
Subjective - Date & Time of Evaluation Date of Evaluation: 06/10/17 Time of Evaluation: 09:00 - Subjective Subjective: stool OB + will need GI eval r/o occult malignancy Objective - Vital Signs/Intake and Output Vital Signs (last 24 hours): Temp Pulse Resp BP Pulse Ox 97.9 F 88 20 135/81 95 06/10/17 15:23 06/10/17 15:23 06/10/17 15:23 06/10/17 15:23 06/10/17 15:23 Intake and Output: 06/10/17 06/10/17 06:59 18:59 Intake Total 400 Balance 400 - Medications Medications: Current Medications Acetaminophen (Tylenol 325mg Tab) 650 mg PO Q6 PRN PRN Reason: Fever >100.4 F Last Admin: 06/05/17 02:27 Dose: 650 mg Enoxaparin Sodium (Lovenox) 40 mg SC DAILY [facility] Last Admin: 06/10/17 10:29 Dose: 40 mg Ergocalciferol (Drisdol 50,000 Intl Units Cap) 1 cap PO QWK [facility] Last Admin: 06/04/17 10:20 Dose: 1 cap Azithromycin 500 mg/ Sodium (Chloride) 250 mls @ 167 mls/hr IVPB Q24H [facility] Last Admin: 06/10/17 00:12 Dose: 167 mls/hr Pantoprazole Sodium (Protonix Ec Tab) 40 mg PO DAILY [facility] Last Admin: 06/10/17 10:29 Dose: 40 mg Rosuvastatin Calcium (Crestor) 5 mg PO HS [facility] Last Admin: 06/09/17 22:32 Dose: 5 mg Tamsulosin HCl (Flomax) 0.4 mg PO DAILY [facility] Last Admin: 06/10/17 10:29 Dose: 0.4 mg Tramadol HCl (Ultram) 50 mg PO TID PRN PRN Reason: Pain, moderate (4-7) Last Admin: 06/05/17 13:13 Dose: 50 mg - Labs Labs: 06/10/17 07:07 06/10/17 07:07 - Constitutional Appears: Non-toxic, Cachectic, Chronically Ill - Head Exam Head Exam: NORMOCEPHALIC - Eye Exam Eye Exam: PERRL. absent: Scleral icterus - ENT Exam ENT Exam: Mucous Membranes Dry - Neck Exam Neck Exam: absent: Lymphadenopathy - Respiratory Exam Respiratory Exam: Decreased Breath Sounds - Cardiovascular Exam Cardiovascular Exam: REGULAR RHYTHM - GI/Abdominal Exam GI & Abdominal Exam: Distended, Soft Assessment and Plan (1) Fever of unknown origin Status: Acute
[2017-06-10] MEDS ORDERED: Epoetin Alfa 20000 UNIT/ML Inj SC ONE ×2 (18:47→22:12)
[2017-06-10] MEDS ORDERED: Ferric Sodium Gluconat Complex 62.5 mg/5 ml Vial IVPB SCH (20:00)
--- NOTE | 2017-06-11 00:38 | CP.PCM.CON ---
History of Present Illness - History of Present Illness History of Present Illness: 67 year old female with a history of kidney stones, HL, readmitted with fevers, with anemia. The patient reports to requiring iron tablets for her anemia. She denies abnormal bleeding and bruising. She reports to cessation of her fevers. She has declined PRBC transfusion. Past medical history: Kidney stone, HL Past surgical history: Family history: Denies hematologic and oncologic problems Social history: Denies tobacco, alcohol, and illicit drug use. Allergies: NKA Review of systems: All remaining review of systems including HEENT, cardiovascular, respiratory, gastrointestinal, genitourinary, musculoskeletal, dermatologic, neurologic, and psychiatric are negative unless mentioned in the HPI Past Patient History - Infectious Disease Hx of Infectious Diseases: None - Past Medical History & Family History Past Medical History?: Yes - Past Social History Smoking Status: Never Smoked - CARDIAC Hx Cardiac Disorders: Yes - PULMONARY Hx Respiratory Disorders: No - NEUROLOGICAL Hx Neurological Disorder: No - HEENT Hx HEENT Problems: Yes Hx Cataracts: Yes - RENAL Hx Chronic Kidney Disease: Yes Hx Kidney Stones: Yes - ENDOCRINE/METABOLIC Hx Endocrine Disorders: No - HEMATOLOGICAL/ONCOLOGICAL Hx Blood Disorders: Yes Hx Blood Transfusions: Yes Hx Blood Transfusion Reaction: No - INTEGUMENTARY Hx Dermatological Problems: No - MUSCULOSKELETAL/RHEUMATOLOGICAL Hx Musculoskeletal Disorders: No Hx Falls: No - GASTROINTESTINAL Hx Gastrointestinal Disorders: Yes (HX GI BLEEDING DUE TO NAPROSYN) - GENITOURINARY/GYNECOLOGICAL Hx Genitourinary Disorders: No - PSYCHIATRIC Hx Substance Use: No - SURGICAL HISTORY Hx Surgeries: Yes Hx Cataract Extraction: Yes - ANESTHESIA Hx Anesthesia: Yes Hx Anesthesia Reactions: No Hx Malignant Hyperthermia: No Meds Allergies/Adverse Reactions: Allergies Allergy/AdvReac Type Severity Reaction Status Date / Time No Known Allergies Allergy Unverified 06/03/17 21:00 - Medications Medications: Current Medications Acetaminophen (Tylenol 325mg Tab) 650 mg PO Q6 PRN PRN Reason: Fever >100.4 F Last Admin: 06/05/17 02:27 Dose: 650 mg Enoxaparin Sodium (Lovenox) 40 mg SC DAILY [facility] Last Admin: 06/10/17 10:29 Dose: 40 mg Ergocalciferol (Drisdol 50,000 Intl Units Cap) 1 cap PO QWK [facility] Last Admin: 06/04/17 10:20 Dose: 1 cap Ferric Sodium Gluconate Complex (Ferrlecit) 125 mg IVPB DAILY [facility] Stop: 06/13/17 20:01 Last Admin: 06/10/17 22:45 Dose: 125 mg Ceftriaxone Sodium 1 gm/ (Sodium Chloride) 100 mls @ 100 mls/hr IVPB DAILY [facility] Pantoprazole Sodium (Protonix Ec Tab) 40 mg PO DAILY [facility] Last Admin: 06/10/17 10:29 Dose: 40 mg Rosuvastatin Calcium (Crestor) 5 mg PO HS [facility] Last Admin: 06/10/17 22:11 Dose: 5 mg Tamsulosin HCl (Flomax) 0.4 mg PO DAILY [facility] Last Admin: 06/10/17 10:29 Dose: 0.4 mg Tramadol HCl (Ultram) 50 mg PO TID PRN PRN Reason: Pain, moderate (4-7) Last Admin: 06/05/17 13:13 Dose: 50 mg Physical Exam - Head Exam Head Exam: ATRAUMATIC - Eye Exam Eye Exam: Normal appearance - ENT Exam ENT Exam: Mucous Membranes Dry - Respiratory Exam Respiratory Exam: NORMAL BREATHING PATTERN - Cardiovascular Exam Cardiovascular Exam: +S1, +S2 - GI/Abdominal Exam GI & Abdominal Exam: Normal Bowel Sounds - Extremities Exam Extremities exam: Positive for: normal inspection - Neurological Exam Neurological exam: Oriented x3 - Psychiatric Exam Psychiatric exam: Normal Affect, Normal Mood - Skin Skin Exam: Warm Results - Vital Signs Recent Vital Signs: Last Vital Signs Temp 97.9 F 06/10/17 15:23 Pulse 88 06/10/17 15:23 Resp 20 06/10/17 15:23 BP 135/81 06/10/17 15:23 Pulse Ox 95 06/10/17 15:23 - Labs Result Diagrams: 06/10/17 07:07 06/10/17 07:07 Labs: Laboratory Results - last 24 hr 06/10/17 06/10/17 06/10/17 07:07 07:07 07:07 WBC 6.2 RBC 3.24 L Hgb 7.8 L Hct 24.2 L MCV 74.8 L MCH 24.2 L MCHC 32.4 L RDW 15.8 H Plt Count 328 MPV 8.1 Neut % (Auto) 69.4 Lymph % (Auto) 20.4 Burt % (Auto) 5.9 Eos % (Auto) 3.4 Baso % (Auto) 0.9 Neut # 4.3 Lymph # 1.3 Burt # 0.4 Eos # 0.2 Baso # 0.1 Retic Count 2.0 H D Sodium 142 Potassium 3.7 Chloride 106 Carbon Dioxide 29 Anion Gap 10 BUN 6 L Creatinine 0.7 Est GFR ( Amer) > 60 Est GFR (Non-Af Amer) > 60 Random Glucose 95 Calcium 7.6 L Iron TIBC % Saturation Ferritin 187.0 Total Bilirubin 0.3 Direct Bilirubin 0.3 Lactate Dehydrogenase 369 Vitamin B12 302 Folate 14.7 Stool Occult Blood Vancomycin Trough 12.6 H 06/10/17 06/10/17 09:09 11:07 WBC RBC Hgb Hct MCV MCH MCHC RDW Plt Count MPV Neut % (Auto) Lymph % (Auto) Burt % (Auto) Eos % (Auto) Baso % (Auto) Neut # Lymph # Burt # Eos # Baso # Retic Count Sodium Potassium Chloride Carbon Dioxide Anion Gap BUN Creatinine Est GFR ( Amer) Est GFR (Non-Af Amer) Random Glucose Calcium Iron 28 L TIBC 228 L % Saturation 12 L Ferritin Total Bilirubin Direct Bilirubin Lactate Dehydrogenase Vitamin B12 Folate Stool Occult Blood Positive H Vancomycin Trough Assessment & Plan (1) Anemia Assessment and Plan: normal b12, folate, iron stores FOBT positive pt deferred PRBC transfusion will give Procrit and Venofer hemoglobinopathy evaluation outpatient GI evaluation Thank you for this interesting consult. Status: Acute
[2017-06-11 02:41] LABS: HEMATOCRIT 24.2 % (35.0-45.0); HEMOGLOBIN 7.7 g/dL (11.7-15.5); RDW 15.8 % (11.0-15.0)
[2017-06-11] MEDS: Pantoprazole 40 mg EC Tab PO SCH (09:42)
[2017-06-11] MEDS: Enoxaparin 40 mg Syringe SC SCH ×2 (09:42→09:43)
[2017-06-11] MEDS: Ergocalciferol 50,000 Intl Units Cap PO SCH (09:42)
[2017-06-11 16:04] LABS: HEMOGLOBIN F <1.0 Percent (<2.0)
--- NOTE | 2017-06-11 19:05 | CP.PCM.PN ---
Subjective - Date & Time of Evaluation Date of Evaluation: 06/11/17 Time of Evaluation: 09:00 - Subjective Subjective: afeb on IV rx cont rx as per dr Jacklyn Singh Objective - Vital Signs/Intake and Output Vital Signs (last 24 hours): Temp Pulse Resp BP Pulse Ox 97.7 F 88 20 145/85 96 06/11/17 15:40 06/11/17 15:40 06/11/17 15:40 06/11/17 15:40 06/11/17 15:40 Intake and Output: 06/11/17 06/12/17 18:59 06:59 Intake Total 680 Balance 680 - Medications Medications: Current Medications Acetaminophen (Tylenol 325mg Tab) 650 mg PO Q6 PRN PRN Reason: Fever >100.4 F Last Admin: 06/05/17 02:27 Dose: 650 mg Ergocalciferol (Drisdol 50,000 Intl Units Cap) 1 cap PO QWK [facility] Last Admin: 06/11/17 09:42 Dose: 1 cap Ferric Sodium Gluconate Complex (Ferrlecit) 125 mg IVPB DAILY@2200 [facility] Stop: 06/13/17 22:01 Ceftriaxone Sodium 1 gm/ (Sodium Chloride) 100 mls @ 100 mls/hr IVPB DAILY [facility] Last Admin: 06/11/17 09:42 Dose: 100 mls/hr Pantoprazole Sodium (Protonix Ec Tab) 40 mg PO DAILY [facility] Last Admin: 06/11/17 09:42 Dose: 40 mg Rosuvastatin Calcium (Crestor) 5 mg PO HS [facility] Last Admin: 06/10/17 22:11 Dose: 5 mg Tamsulosin HCl (Flomax) 0.4 mg PO DAILY [facility] Last Admin: 06/11/17 09:42 Dose: 0.4 mg Tramadol HCl (Ultram) 50 mg PO TID PRN PRN Reason: Pain, moderate (4-7) Last Admin: 06/05/17 13:13 Dose: 50 mg - Labs Labs: 06/10/17 07:07 06/10/17 07:07 - Constitutional Appears: Non-toxic, Chronically Ill - Head Exam Head Exam: NORMOCEPHALIC - Eye Exam Eye Exam: PERRL - ENT Exam ENT Exam: Mucous Membranes Dry - Neck Exam Neck Exam: absent: Lymphadenopathy - Respiratory Exam Respiratory Exam: Decreased Breath Sounds - Cardiovascular Exam Cardiovascular Exam: REGULAR RHYTHM - GI/Abdominal Exam GI & Abdominal Exam: Distended - Rectal Exam Rectal Exam: Deferred - Exam Exam: NORMAL INSPECTION - Extremities Exam Extremities Exam: absent: Pedal Edema - Back Exam Back Exam: absent: CVA tenderness (L), CVA tenderness (R) Assessment and Plan (1) Fever of unknown origin Status: Acute
--- NOTE | 2017-06-11 19:27 | CP.PCM.PN ---
Subjective - Date & Time of Evaluation Date of Evaluation: 06/11/17 Time of Evaluation: 09:00 - Subjective Subjective: clinically same Objective - Vital Signs/Intake and Output Vital Signs (last 24 hours): Temp Pulse Resp BP Pulse Ox 97.7 F 88 20 145/85 96 06/11/17 15:40 06/11/17 15:40 06/11/17 15:40 06/11/17 15:40 06/11/17 15:40 Intake and Output: 06/11/17 06/12/17 18:59 06:59 Intake Total 680 Balance 680 - Medications Medications: Current Medications Acetaminophen (Tylenol 325mg Tab) 650 mg PO Q6 PRN PRN Reason: Fever >100.4 F Last Admin: 06/05/17 02:27 Dose: 650 mg Ergocalciferol (Drisdol 50,000 Intl Units Cap) 1 cap PO QWK [facility] Last Admin: 06/11/17 09:42 Dose: 1 cap Ferric Sodium Gluconate Complex (Ferrlecit) 125 mg IVPB DAILY@2200 [facility] Stop: 06/13/17 22:01 Ceftriaxone Sodium 1 gm/ (Sodium Chloride) 100 mls @ 100 mls/hr IVPB DAILY [facility] Last Admin: 06/11/17 09:42 Dose: 100 mls/hr Pantoprazole Sodium (Protonix Ec Tab) 40 mg PO DAILY [facility] Last Admin: 06/11/17 09:42 Dose: 40 mg Rosuvastatin Calcium (Crestor) 5 mg PO HS [facility] Last Admin: 06/10/17 22:11 Dose: 5 mg Tamsulosin HCl (Flomax) 0.4 mg PO DAILY [facility] Last Admin: 06/11/17 09:42 Dose: 0.4 mg Tramadol HCl (Ultram) 50 mg PO TID PRN PRN Reason: Pain, moderate (4-7) Last Admin: 06/05/17 13:13 Dose: 50 mg - Labs Labs: 06/10/17 07:07 06/10/17 07:07 - Constitutional Appears: Well - Head Exam Head Exam: ATRAUMATIC, NORMAL INSPECTION, NORMOCEPHALIC - Eye Exam Eye Exam: EOMI, Normal appearance, PERRL Pupil Exam: NORMAL ACCOMODATION, PERRL - ENT Exam ENT Exam: Mucous Membranes Moist, Normal Exam - Neck Exam Neck Exam: Full ROM, Normal Inspection. absent: Lymphadenopathy - Respiratory Exam Respiratory Exam: Decreased Breath Sounds - Cardiovascular Exam Cardiovascular Exam: REGULAR RHYTHM, +S1, +S2 - GI/Abdominal Exam GI & Abdominal Exam: Soft, Diminished Bowel Sounds - Rectal Exam Rectal Exam: Deferred Assessment and Plan (1) Fever of unknown origin Status: Acute (2) Bandemia Status: Acute (3) Calculus of proximal left ureter Status: Acute (4) Elevated BP Status: Acute (5) Fever Status: Acute (6) Hepatosplenomegaly Status: Acute (7) Hypertension Status: Acute (8) Intractable pain Status: Acute (9) Nausea & vomiting Status: Acute (10) Pericardial effusion Status: Acute (11) Prophylactic measure Status: Acute (12) Renal colic Status: Acute (13) Renal colic on left side Status: Acute (14) Rheumatoid arthritis Status: Acute (15) SIRS (systemic inflammatory response syndrome) Status: Acute (16) UTI (urinary tract infection) Status: Acute (17) Viral syndrome Status: Acute
--- NOTE | 2017-06-11 22:27 | CP.PCM.PN ---
Subjective - Date & Time of Evaluation Date of Evaluation: 06/11/17 Time of Evaluation: 20:15 - Subjective Subjective: Feeling better Objective - Vital Signs/Intake and Output Vital Signs (last 24 hours): Temp Pulse Resp BP Pulse Ox 97.7 F 88 20 145/85 96 06/11/17 15:40 06/11/17 15:40 06/11/17 15:40 06/11/17 15:40 06/11/17 15:40 Intake and Output: 06/11/17 06/12/17 18:59 06:59 Intake Total 680 Balance 680 - Medications Medications: Current Medications Acetaminophen (Tylenol 325mg Tab) 650 mg PO Q6 PRN PRN Reason: Fever >100.4 F Last Admin: 06/05/17 02:27 Dose: 650 mg Ergocalciferol (Drisdol 50,000 Intl Units Cap) 1 cap PO QWK [facility] Last Admin: 06/11/17 09:42 Dose: 1 cap Ferric Sodium Gluconate Complex (Ferrlecit) 125 mg IVPB DAILY@2200 [facility] Stop: 06/13/17 22:01 Ceftriaxone Sodium 1 gm/ (Sodium Chloride) 100 mls @ 100 mls/hr IVPB DAILY [facility] Last Admin: 06/11/17 09:42 Dose: 100 mls/hr Pantoprazole Sodium (Protonix Ec Tab) 40 mg PO DAILY [facility] Last Admin: 06/11/17 09:42 Dose: 40 mg Rosuvastatin Calcium (Crestor) 5 mg PO HS [facility] Last Admin: 06/10/17 22:11 Dose: 5 mg Tamsulosin HCl (Flomax) 0.4 mg PO DAILY [facility] Last Admin: 06/11/17 09:42 Dose: 0.4 mg Tramadol HCl (Ultram) 50 mg PO TID PRN PRN Reason: Pain, moderate (4-7) Last Admin: 06/05/17 13:13 Dose: 50 mg - Labs Labs: 06/10/17 07:07 06/10/17 07:07 - Head Exam Head Exam: ATRAUMATIC - Eye Exam Eye Exam: Normal appearance - ENT Exam ENT Exam: Mucous Membranes Dry - Respiratory Exam Respiratory Exam: NORMAL BREATHING PATTERN - Cardiovascular Exam Cardiovascular Exam: +S1, +S2 - GI/Abdominal Exam GI & Abdominal Exam: Normal Bowel Sounds Assessment and Plan (1) Anemia Assessment & Plan: improving with iron and Procrit FOBT positive GI evaluation deferred PRBC transfusion Status: Acute
[2017-06-12] MEDS: Pantoprazole 40 mg EC Tab PO SCH (09:45)
[2017-06-12 12:03] LABS: BASO # 0.1 K/uL (0.0-0.2); BASO % 0.9 % (0.0-2.0); EOS # 0.1 K/uL (0.0-0.7); EOS % 1.5 % (0.0-4.0); HEMATOCRIT 28.9 % (34.0-47.0); LYMPH # 1.2 K/uL (1.0-4.3); MEAN CELL VOLUME 75.6 fL (81.0-99.0); MEAN CORPUSCULAR HEMOGLOBIN 24.2 pg (27.0-31.0); MONO # 0.5 K/uL (0.0-0.8); MONO % 5.8 % (0.0-10.0); NRBC % 0.4 % (0.0-2.0); RED CELL DISTRIBUTION WIDTH 15.9 % (11.5-14.5); WHITE BLOOD COUNT 8.3 K/uL (4.8-10.8)
[2017-06-12 12:26] LABS: BLOOD UREA NITROGEN 6 mg/dL (7-17); CALCIUM 8.2 mg/dl (8.6-10.4); CARBON DIOXIDE 28 mmol/L (22-30); CHLORIDE 104 mmol/L (98-107); GFR AFRICAN-AMERICAN > 60; GLUCOSE,RANDOM 113 mg/dL (65-105); POTASSIUM 3.3 mmol/L (3.6-5.2); SODIUM 143 mmol/L (132-148)
[2017-06-12] MEDS ORDERED: Potassium Chloride 20 mEq ER Tab PO STA (14:05)
--- NOTE | 2017-06-12 15:08 | CP.PCM.CON ---
<Mervin Singh - Last Filed: 06/12/17 15:00> History of Present Illness - History of Present Illness History of Present Illness: PGY4 Initial GI Consult Note Reason for consultation: Anemia, + FOBT Shun Jones is a 67 year old female with a history of nephrolithiasis, HL, percardial effusion who was readmitted for fevers. She was recently discharged on 06/03 for pericardial effusion to home. She returned to the ER due to fevers. She was found to have a drop in hgb from ~11 to 7.8. She denies any BRBPR, hematemsis, coffee-ground emesis. Pt reports a hx of iron def anemia and takes iron suppliments as an outpt. she also had a + FOBT in the hospital. She reports a colonoscopy and EGD >5 years ago at [facility], but does not recall the GI physican. She notes that her EGD may have revealed ulcerations. She denies any significant colonoscopy findings. Currently, denies any NSAID use or anticoag use. She denies abnormal bleeding and bruising. She reports to cessation of her fevers. She has declined PRBC transfusion. Past medical history: Kidney stone, HL Past surgical history: Family history: Denies hematologic and oncologic problems Social history: Denies tobacco, alcohol, and illicit drug use. Review of systems: 12 point ROS conducted, neg other than above Past Patient History - Infectious Disease Hx of Infectious Diseases: None - Past Medical History & Family History Past Medical History?: Yes - Past Social History Smoking Status: Never Smoked - CARDIAC Hx Cardiac Disorders: Yes - PULMONARY Hx Respiratory Disorders: No - NEUROLOGICAL Hx Neurological Disorder: No - HEENT Hx HEENT Problems: Yes Hx Cataracts: Yes - RENAL Hx Chronic Kidney Disease: Yes Hx Kidney Stones: Yes - ENDOCRINE/METABOLIC Hx Endocrine Disorders: No - HEMATOLOGICAL/ONCOLOGICAL Hx Blood Disorders: Yes Hx Blood Transfusions: Yes Hx Blood Transfusion Reaction: No - INTEGUMENTARY Hx Dermatological Problems: No - MUSCULOSKELETAL/RHEUMATOLOGICAL Hx Musculoskeletal Disorders: No Hx Falls: No - GASTROINTESTINAL Hx Gastrointestinal Disorders: Yes (HX GI BLEEDING DUE TO NAPROSYN) - GENITOURINARY/GYNECOLOGICAL Hx Genitourinary Disorders: No - PSYCHIATRIC Hx Substance Use: No - SURGICAL HISTORY Hx Surgeries: Yes Hx Cataract Extraction: Yes - ANESTHESIA Hx Anesthesia: Yes Hx Anesthesia Reactions: No Hx Malignant Hyperthermia: No Meds Allergies/Adverse Reactions: Allergies Allergy/AdvReac Type Severity Reaction Status Date / Time No Known Allergies Allergy Unverified 06/03/17 21:00 - Medications Medications: Current Medications Acetaminophen (Tylenol 325mg Tab) 650 mg PO Q6 PRN PRN Reason: Fever >100.4 F Last Admin: 06/05/17 02:27 Dose: 650 mg Ergocalciferol (Drisdol 50,000 Intl Units Cap) 1 cap PO QWK [facility] Last Admin: 06/11/17 09:42 Dose: 1 cap Ferric Sodium Gluconate Complex (Ferrlecit) 125 mg IVPB DAILY@2200 [facility] Stop: 06/13/17 22:01 Ceftriaxone Sodium 1 gm/ (Sodium Chloride) 100 mls @ 100 mls/hr IVPB DAILY [facility] Last Admin: 06/12/17 09:45 Dose: Not Given Pantoprazole Sodium (Protonix Ec Tab) 40 mg PO DAILY [facility] Last Admin: 06/12/17 09:45 Dose: 40 mg Rosuvastatin Calcium (Crestor) 5 mg PO HS [facility] Last Admin: 06/10/17 22:11 Dose: 5 mg Tamsulosin HCl (Flomax) 0.4 mg PO DAILY [facility] Last Admin: 06/12/17 09:45 Dose: 0.4 mg Tramadol HCl (Ultram) 50 mg PO TID PRN PRN Reason: Pain, moderate (4-7) Last Admin: 06/05/17 13:13 Dose: 50 mg Physical Exam - Constitutional Appears: No Acute Distress - Head Exam Head Exam: ATRAUMATIC, NORMOCEPHALIC - Eye Exam Eye Exam: Normal appearance - ENT Exam ENT Exam: Mucous Membranes Moist - Respiratory Exam Respiratory Exam: Clear to Auscultation Bilateral, NORMAL BREATHING PATTERN. absent: Rales, Rhonchi, Wheezes, Respiratory Distress - Cardiovascular Exam Cardiovascular Exam: REGULAR RHYTHM, +S1, +S2 - GI/Abdominal Exam GI & Abdominal Exam: Normal Bowel Sounds, Soft. absent: Distended, Guarding, Organomegaly - Extremities Exam Extremities exam: Negative for: joint swelling, pedal edema - Neurological Exam Neurological exam: Alert, Oriented x3 - Psychiatric Exam Psychiatric exam: Normal Affect, Normal Mood - Skin Skin Exam: Dry, Intact, Normal Color, Warm Results - Vital Signs Recent Vital Signs: Last Vital Signs Temp 97.7 F 06/12/17 08:01 Pulse 94 H 06/12/17 12:00 Resp 20 06/12/17 08:01 BP 137/81 06/12/17 12:00 Pulse Ox 94 L 06/12/17 08:01 - Labs Result Diagrams: 06/12/17 11:48 06/12/17 11:48 Labs: Laboratory Results - last 24 hr 06/10/17 06/12/17 06/12/17 07:07 11:48 11:48 WBC 8.3 RBC 3.82 Hgb 9.2 L Hct 28.9 L MCV 75.6 L MCH 24.2 L MCHC 32.0 L RDW 15.9 H Plt Count 390 MPV 8.0 Neut % (Auto) 77.8 H Lymph % (Auto) 14.0 L O'Brien % (Auto) 5.8 Eos % (Auto) 1.5 Baso % (Auto) 0.9 Neut # 6.4 Lymph # 1.2 O'Brien # 0.5 Eos # 0.1 Baso # 0.1 Hemoglobin A 96.6 Hemoglobin A2 2.4 Hemoglobin C 0.0 Hemoglobin F () <1.0 Hemoglobin S 0.0 Variant Hemoglobin 0.0 Hemoglobinopathy Interp See note Sodium 143 Potassium 3.3 L Chloride 104 Carbon Dioxide 28 Anion Gap 14 BUN 6 L Creatinine 0.8 Est GFR ( Amer) > 60 Est GFR (Non-Af Amer) > 60 Random Glucose 113 H Calcium 8.2 L Assessment & Plan - Assessment and Plan (Free Text) Assessment: Shun Jones is 67F w hx of pericardial effusion, microcytic anemia who presented to the Er for Fevers. She acutely dropped her hgb to 7.8 from ~11 with + FOBT Microcytic anemia, r/o GI bleed FOBT+ hx of Pericardial effusion Plan: -maintain hgb >7 -conintinue protonix 40mg Po daily -awaiting further hem/onc recommendations -if pt is still here on will do an EGD and colonoscopy -NPO after midnight on Wednesday -start clears tomorrow -dulcolax 10mg x1 tomorrow and golytly tomorrow -will try to obtain old records -avoid Nsaids D/W Dr. Castellanos <Pelon Castellanos MD - Last Filed: 06/12/17 21:31> Meds - Medications Medications: Current Medications Acetaminophen (Tylenol 325mg Tab) 650 mg PO Q6 PRN PRN Reason: Fever >100.4 F Last Admin: 06/05/17 02:27 Dose: 650 mg Bisacodyl (Dulcolax) 10 mg PO ONCE ONE Stop: 06/13/17 12:01 Ergocalciferol (Drisdol 50,000 Intl Units Cap) 1 cap PO QWK [facility] Last Admin: 06/11/17 09:42 Dose: 1 cap Ferric Sodium Gluconate Complex (Ferrlecit) 125 mg IVPB DAILY@2200 [facility] Stop: 06/13/17 22:01 Ceftriaxone Sodium 1 gm/ (Sodium Chloride) 100 mls @ 100 mls/hr IVPB DAILY [facility] Last Admin: 06/12/17 09:45 Dose: Not Given Pantoprazole Sodium (Protonix Ec Tab) 40 mg PO DAILY [facility] Last Admin: 06/12/17 09:45 Dose: 40 mg Polyethylene Glycol/Electrolytes (Golytely) 4,000 ml PO ONCE ONE Stop: 06/13/17 13:01 Rosuvastatin Calcium (Crestor) 5 mg PO HS [facility] Last Admin: 06/10/17 22:11 Dose: 5 mg Tamsulosin HCl (Flomax) 0.4 mg PO DAILY [facility] Last Admin: 06/12/17 09:45 Dose: 0.4 mg Tramadol HCl (Ultram) 50 mg PO TID PRN PRN Reason: Pain, moderate (4-7) Last Admin: 06/05/17 13:13 Dose: 50 mg Results - Vital Signs Recent Vital Signs: Last Vital Signs Temp 98.2 F 06/12/17 15:00 Pulse 89 06/12/17 15:00 Resp 20 06/12/17 15:00 BP 133/75 06/12/17 15:00 Pulse Ox 95 06/12/17 15:00 - Labs Result Diagrams: 06/12/17 11:48 06/12/17 11:48 Labs: Laboratory Results - last 24 hr 06/12/17 06/12/17 11:48 11:48 WBC 8.3 RBC 3.82 Hgb 9.2 L Hct 28.9 L MCV 75.6 L MCH 24.2 L MCHC 32.0 L RDW 15.9 H Plt Count 390 MPV 8.0 Neut % (Auto) 77.8 H Lymph % (Auto) 14.0 L O'Brien % (Auto) 5.8 Eos % (Auto) 1.5 Baso % (Auto) 0.9 Neut # 6.4 Lymph # 1.2 O'Brien # 0.5 Eos # 0.1 Baso # 0.1 Sodium 143 Potassium 3.3 L Chloride 104 Carbon Dioxide 28 Anion Gap 14 BUN 6 L Creatinine 0.8 Est GFR ( Amer) > 60 Est GFR (Non-Af Amer) > 60 Random Glucose 113 H Calcium 8.2 L Attending/Attestation - Attestation I have personally seen and examined this patient.: Yes I have fully participated in the care of the patient.: Yes I have reviewed all pertinent clinical information: Yes Notes (Text): 06/12/17 21:23 Patient seen this morning with GI fellow on rounds this am. This is a 67 yr old F with history of pericardial effusion, microcytic anemia who presented to the ER for fever of unknown origin. She acutely dropped her hgb to 7.8 from ~11 with FOBT + without overt GI bleeding. EGD/ colonoscopy more than 4 years ago which was unremarkable. Will scheudle for elective EGD/ colonoscopy to rule out mucosal etiology of Gi tract. Clear iquid diet on wednesday and npo past midnight on Wednesday. Continue PPI daily. Rest of recommendations as per hematology oncology. FUO management as per primary team
--- NOTE | 2017-06-12 15:47 | CP.PCM.PN ---
Subjective - Date & Time of Evaluation Date of Evaluation: 06/12/17 Time of Evaluation: 09:20 - Subjective Subjective: clinically same Objective - Vital Signs/Intake and Output Vital Signs (last 24 hours): Temp Pulse Resp BP Pulse Ox 97.7 F 94 H 20 137/81 94 L 06/12/17 08:01 06/12/17 12:00 06/12/17 08:01 06/12/17 12:00 06/12/17 08:01 - Medications Medications: Current Medications Acetaminophen (Tylenol 325mg Tab) 650 mg PO Q6 PRN PRN Reason: Fever >100.4 F Last Admin: 06/05/17 02:27 Dose: 650 mg Bisacodyl (Dulcolax) 10 mg PO ONCE ONE Stop: 06/13/17 12:01 Ergocalciferol (Drisdol 50,000 Intl Units Cap) 1 cap PO QWK [facility] Last Admin: 06/11/17 09:42 Dose: 1 cap Ferric Sodium Gluconate Complex (Ferrlecit) 125 mg IVPB DAILY@2200 [facility] Stop: 06/13/17 22:01 Ceftriaxone Sodium 1 gm/ (Sodium Chloride) 100 mls @ 100 mls/hr IVPB DAILY [facility] Last Admin: 06/12/17 09:45 Dose: Not Given Pantoprazole Sodium (Protonix Ec Tab) 40 mg PO DAILY [facility] Last Admin: 06/12/17 09:45 Dose: 40 mg Polyethylene Glycol/Electrolytes (Golytely) 4,000 ml PO ONCE ONE Stop: 06/13/17 13:01 Rosuvastatin Calcium (Crestor) 5 mg PO HS [facility] Last Admin: 06/10/17 22:11 Dose: 5 mg Tamsulosin HCl (Flomax) 0.4 mg PO DAILY [facility] Last Admin: 06/12/17 09:45 Dose: 0.4 mg Tramadol HCl (Ultram) 50 mg PO TID PRN PRN Reason: Pain, moderate (4-7) Last Admin: 06/05/17 13:13 Dose: 50 mg - Labs Labs: 06/12/17 11:48 06/12/17 11:48 - Constitutional Appears: Well - Head Exam Head Exam: ATRAUMATIC, NORMAL INSPECTION, NORMOCEPHALIC - Eye Exam Eye Exam: EOMI, Normal appearance, PERRL Pupil Exam: NORMAL ACCOMODATION, PERRL - ENT Exam ENT Exam: Mucous Membranes Moist, Normal Exam - Neck Exam Neck Exam: Full ROM, Normal Inspection. absent: Lymphadenopathy - Respiratory Exam Respiratory Exam: Decreased Breath Sounds - Cardiovascular Exam Cardiovascular Exam: REGULAR RHYTHM, +S1, +S2 - GI/Abdominal Exam GI & Abdominal Exam: Soft, Diminished Bowel Sounds - Rectal Exam Rectal Exam: Deferred Assessment and Plan (1) Fever of unknown origin Status: Acute (2) Bandemia Status: Acute (3) Calculus of proximal left ureter Status: Acute (4) Elevated BP Status: Acute (5) Fever Status: Acute (6) Hepatosplenomegaly Status: Acute (7) Hypertension Status: Acute (8) Intractable pain Status: Acute (9) Nausea & vomiting Status: Acute (10) Pericardial effusion Status: Acute (11) Prophylactic measure Status: Acute (12) Renal colic Status: Acute (13) Renal colic on left side Status: Acute (14) Rheumatoid arthritis Status: Acute (15) SIRS (systemic inflammatory response syndrome) Status: Acute (16) UTI (urinary tract infection) Status: Acute (17) Viral syndrome Status: Acute
[2017-06-12] MEDS: Ferric Sodium Gluconat Complex 62.5 mg/5 ml Vial IVPB SCH (21:49)
--- NOTE | 2017-06-13 10:40 | CP.PCM.PN ---
<Mervin Singh - Last Filed: 06/13/17 10:44> Subjective - Date & Time of Evaluation Date of Evaluation: 06/13/17 Time of Evaluation: 10:35 - Subjective Subjective: PGY4 GI follow-up Pt seen and examined bedside no acute events overnight No reports of GI bleed tolerating diet denies any abd pain ROS: 10 point ROS conducted, neg other than above Objective - Vital Signs/Intake and Output Vital Signs (last 24 hours): Temp Pulse Resp BP Pulse Ox 97.9 F 76 20 144/73 95 06/13/17 08:26 06/13/17 08:26 06/13/17 08:26 06/13/17 08:26 06/13/17 08:26 Intake and Output: 06/13/17 06/13/17 06:59 18:59 Intake Total 450 Balance 450 - Medications Medications: Current Medications Acetaminophen (Tylenol 325mg Tab) 650 mg PO Q6 PRN PRN Reason: Fever >100.4 F Last Admin: 06/05/17 02:27 Dose: 650 mg Bisacodyl (Dulcolax) 10 mg PO ONCE ONE Stop: 06/13/17 12:01 Ergocalciferol (Drisdol 50,000 Intl Units Cap) 1 cap PO QWK [facility] Last Admin: 06/11/17 09:42 Dose: 1 cap Ferric Sodium Gluconate Complex (Ferrlecit) 125 mg IVPB DAILY@2200 [facility] Stop: 06/13/17 22:01 Last Admin: 06/12/17 21:49 Dose: 125 mg Ceftriaxone Sodium 1 gm/ (Sodium Chloride) 100 mls @ 100 mls/hr IVPB DAILY [facility] Last Admin: 06/12/17 09:45 Dose: Not Given Pantoprazole Sodium (Protonix Ec Tab) 40 mg PO DAILY [facility] Last Admin: 06/12/17 09:45 Dose: 40 mg Polyethylene Glycol/Electrolytes (Golytely) 4,000 ml PO ONCE ONE Stop: 06/13/17 13:01 Rosuvastatin Calcium (Crestor) 5 mg PO HS [facility] Last Admin: 06/12/17 21:43 Dose: 5 mg Tamsulosin HCl (Flomax) 0.4 mg PO DAILY [facility] Last Admin: 06/12/17 09:45 Dose: 0.4 mg Tramadol HCl (Ultram) 50 mg PO TID PRN PRN Reason: Pain, moderate (4-7) Last Admin: 06/05/17 13:13 Dose: 50 mg - Labs Labs: 06/12/17 11:48 06/12/17 11:48 - Constitutional Appears: Well, No Acute Distress - Head Exam Head Exam: ATRAUMATIC, NORMOCEPHALIC - Eye Exam Eye Exam: Normal appearance - ENT Exam ENT Exam: Mucous Membranes Moist - Respiratory Exam Respiratory Exam: Clear to Ausculation Bilateral, NORMAL BREATHING PATTERN. absent: Rales, Rhonchi, Wheezes, Respiratory Distress - Cardiovascular Exam Cardiovascular Exam: REGULAR RHYTHM, +S1, +S2 - GI/Abdominal Exam GI & Abdominal Exam: Soft, Normal Bowel Sounds. absent: Guarding, Rigid, Tenderness - Extremities Exam Extremities Exam: absent: Joint Swelling, Pedal Edema - Neurological Exam Neurological Exam: Alert, Awake, Oriented x3 - Psychiatric Exam Psychiatric exam: Normal Affect, Normal Mood - Skin Skin Exam: Dry, Intact, Normal Color, Warm Assessment and Plan - Assessment and Plan (Free Text) Assessment: Shun Jones is 67F w hx of pericardial effusion, microcytic anemia who presented to the Er for Fevers. She acutely dropped her hgb to 7.8 from ~11 with + FOBT Microcytic anemia, r/o GI bleed FOBT+ hx of Pericardial effusion Plan: -maintain hgb >7 -conintinue protonix 40mg Po daily -will do an EGD and colonoscopy tomorrow -NPO after midnight on Wednesday -start clears -dulcolax 10mg x1 and golytly -will try to obtain old records -avoid Nsaids D/W Dr. Castellanos <Pelon Castellanos MD - Last Filed: 06/13/17 12:53> Objective - Vital Signs/Intake and Output Vital Signs (last 24 hours): Temp Pulse Resp BP Pulse Ox 97.9 F 76 20 144/73 95 06/13/17 08:26 06/13/17 08:26 06/13/17 08:26 06/13/17 08:26 06/13/17 08:26 Intake and Output: 06/13/17 06/13/17 06:59 18:59 Intake Total 450 Balance 450 - Medications Medications: Current Medications Acetaminophen (Tylenol 325mg Tab) 650 mg PO Q6 PRN PRN Reason: Fever >100.4 F Last Admin: 06/05/17 02:27 Dose: 650 mg Ergocalciferol (Drisdol 50,000 Intl Units Cap) 1 cap PO QWK [facility] Last Admin: 06/11/17 09:42 Dose: 1 cap Ferric Sodium Gluconate Complex (Ferrlecit) 125 mg IVPB DAILY@2200 [facility] Stop: 06/13/17 22:01 Last Admin: 06/12/17 21:49 Dose: 125 mg Ceftriaxone Sodium 1 gm/ (Sodium Chloride) 100 mls @ 100 mls/hr IVPB DAILY [facility] Last Admin: 06/13/17 11:02 Dose: 100 mls/hr Pantoprazole Sodium (Protonix Ec Tab) 40 mg PO DAILY [facility] Last Admin: 06/13/17 11:02 Dose: 40 mg Polyethylene Glycol/Electrolytes (Golytely) 4,000 ml PO ONCE ONE Stop: 06/13/17 13:01 Rosuvastatin Calcium (Crestor) 5 mg PO HS [facility] Last Admin: 06/12/17 21:43 Dose: 5 mg Tamsulosin HCl (Flomax) 0.4 mg PO DAILY [facility] Last Admin: 06/13/17 11:02 Dose: 0.4 mg Tramadol HCl (Ultram) 50 mg PO TID PRN PRN Reason: Pain, moderate (4-7) Last Admin: 06/05/17 13:13 Dose: 50 mg - Labs Labs: 06/12/17 11:48 06/12/17 11:48 Attending/Attestation - Attestation I have personally seen and examined this patient.: Yes I have fully participated in the care of the patient.: Yes I have reviewed all pertinent clinical information, including history, physical exam and plan: Yes Notes (Text): 06/13/17 12:51 Patient seen this morning with GI fellow on rounds this am. This is a 67 yr old F with history of pericardial effusion, microcytic anemia who presented to the ER for fever of unknown origin. She acutely dropped her hgb to 7.8 from ~11 with FOBT + without overt GI bleeding. EGD/ colonoscopy more than 4 years ago which was unremarkable. Will schedule for elective EGD/ colonoscopy to rule out mucosal etiology of Gi tract. Clear liquid diet on wednesday and npo past midnight on Wednesday. Continue PPI daily. Rest of recommendations as per hematology oncology. FUO management as per primary team
[2017-06-13] MEDS: Pantoprazole 40 mg EC Tab PO SCH (11:02)
[2017-06-13] MEDS ORDERED: Bisacodyl 5mg EC Tab PO ONE (12:00)
[2017-06-13] MEDS ORDERED: Peg-Electrolyte Oral Soln 4L (Golytely) PO ONE (13:00)
--- NOTE | 2017-06-13 15:07 | CP.PCM.PN ---
Subjective - Date & Time of Evaluation Date of Evaluation: 06/13/17 Time of Evaluation: 09:00 - Subjective Subjective: doing better remains afebrile all cultures and serologies neg GI on board Objective - Vital Signs/Intake and Output Vital Signs (last 24 hours): Temp Pulse Resp BP Pulse Ox 97.9 F 76 20 144/73 95 06/13/17 08:26 06/13/17 08:26 06/13/17 08:26 06/13/17 08:26 06/13/17 08:26 Intake and Output: 06/13/17 06/13/17 06:59 18:59 Intake Total 450 Balance 450 - Medications Medications: Current Medications Acetaminophen (Tylenol 325mg Tab) 650 mg PO Q6 PRN PRN Reason: Fever >100.4 F Last Admin: 06/05/17 02:27 Dose: 650 mg Ergocalciferol (Drisdol 50,000 Intl Units Cap) 1 cap PO QWK [facility] Last Admin: 06/11/17 09:42 Dose: 1 cap Ferric Sodium Gluconate Complex (Ferrlecit) 125 mg IVPB DAILY@2200 [facility] Stop: 06/13/17 22:01 Last Admin: 06/12/17 21:49 Dose: 125 mg Ceftriaxone Sodium 1 gm/ (Sodium Chloride) 100 mls @ 100 mls/hr IVPB DAILY [facility] Last Admin: 06/13/17 11:02 Dose: 100 mls/hr Pantoprazole Sodium (Protonix Ec Tab) 40 mg PO DAILY [facility] Last Admin: 06/13/17 11:02 Dose: 40 mg Rosuvastatin Calcium (Crestor) 5 mg PO HS [facility] Last Admin: 06/12/17 21:43 Dose: 5 mg Tamsulosin HCl (Flomax) 0.4 mg PO DAILY [facility] Last Admin: 06/13/17 11:02 Dose: 0.4 mg Tramadol HCl (Ultram) 50 mg PO TID PRN PRN Reason: Pain, moderate (4-7) Last Admin: 06/05/17 13:13 Dose: 50 mg - Labs Labs: 06/12/17 11:48 06/12/17 11:48 - Constitutional Appears: Non-toxic, Chronically Ill - Head Exam Head Exam: NORMOCEPHALIC - Eye Exam Eye Exam: PERRL - ENT Exam ENT Exam: Mucous Membranes Dry - Neck Exam Neck Exam: absent: Lymphadenopathy - Respiratory Exam Respiratory Exam: Decreased Breath Sounds - Cardiovascular Exam Cardiovascular Exam: REGULAR RHYTHM - GI/Abdominal Exam GI & Abdominal Exam: Distended - Rectal Exam Rectal Exam: Deferred - Exam Exam: NORMAL INSPECTION - Extremities Exam Extremities Exam: absent: Pedal Edema - Back Exam Back Exam: absent: CVA tenderness (L), CVA tenderness (R) Assessment and Plan (1) Fever of unknown origin Status: Acute
--- NOTE | 2017-06-13 16:44 | CP.PCM.PN ---
Subjective - Date & Time of Evaluation Date of Evaluation: 06/13/17 Time of Evaluation: 09:40 - Subjective Subjective: clinically same Objective - Vital Signs/Intake and Output Vital Signs (last 24 hours): Temp Pulse Resp BP Pulse Ox 98.2 F 90 18 150/84 95 06/13/17 15:31 06/13/17 15:31 06/13/17 15:31 06/13/17 15:31 06/13/17 15:31 Intake and Output: 06/13/17 06/13/17 06:59 18:59 Intake Total 450 1330 Balance 450 1330 - Medications Medications: Current Medications Acetaminophen (Tylenol 325mg Tab) 650 mg PO Q6 PRN PRN Reason: Fever >100.4 F Last Admin: 06/05/17 02:27 Dose: 650 mg Ergocalciferol (Drisdol 50,000 Intl Units Cap) 1 cap PO QWK [facility] Last Admin: 06/11/17 09:42 Dose: 1 cap Ferric Sodium Gluconate Complex (Ferrlecit) 125 mg IVPB DAILY@2200 [facility] Stop: 06/13/17 22:01 Last Admin: 06/12/17 21:49 Dose: 125 mg Ceftriaxone Sodium 1 gm/ (Sodium Chloride) 100 mls @ 100 mls/hr IVPB DAILY [facility] Last Admin: 06/13/17 11:02 Dose: 100 mls/hr Pantoprazole Sodium (Protonix Ec Tab) 40 mg PO DAILY [facility] Last Admin: 06/13/17 11:02 Dose: 40 mg Rosuvastatin Calcium (Crestor) 5 mg PO HS [facility] Last Admin: 06/12/17 21:43 Dose: 5 mg Tamsulosin HCl (Flomax) 0.4 mg PO DAILY [facility] Last Admin: 06/13/17 11:02 Dose: 0.4 mg Tramadol HCl (Ultram) 50 mg PO TID PRN PRN Reason: Pain, moderate (4-7) Last Admin: 06/05/17 13:13 Dose: 50 mg - Labs Labs: 06/12/17 11:48 06/12/17 11:48 - Constitutional Appears: Well - Head Exam Head Exam: ATRAUMATIC, NORMAL INSPECTION, NORMOCEPHALIC - Eye Exam Eye Exam: EOMI, Normal appearance, PERRL Pupil Exam: NORMAL ACCOMODATION, PERRL - ENT Exam ENT Exam: Mucous Membranes Moist, Normal Exam - Neck Exam Neck Exam: Full ROM, Normal Inspection. absent: Lymphadenopathy - Respiratory Exam Respiratory Exam: Decreased Breath Sounds - Cardiovascular Exam Cardiovascular Exam: REGULAR RHYTHM, +S1, +S2 - GI/Abdominal Exam GI & Abdominal Exam: Soft, Diminished Bowel Sounds - Rectal Exam Rectal Exam: Deferred Assessment and Plan (1) Fever of unknown origin Status: Acute (2) Bandemia Status: Acute (3) Calculus of proximal left ureter Status: Acute (4) Elevated BP Status: Acute (5) Fever Status: Acute (6) Hepatosplenomegaly Status: Acute (7) Hypertension Status: Acute (8) Intractable pain Status: Acute (9) Nausea & vomiting Status: Acute (10) Pericardial effusion Status: Acute (11) Prophylactic measure Status: Acute (12) Renal colic Status: Acute (13) Renal colic on left side Status: Acute (14) Rheumatoid arthritis Status: Acute (15) SIRS (systemic inflammatory response syndrome) Status: Acute (16) UTI (urinary tract infection) Status: Acute (17) Viral syndrome Status: Acute
--- NOTE | 2017-06-13 18:01 | CP.PCM.PN ---
Subjective - Date & Time of Evaluation Date of Evaluation: 06/12/17 Time of Evaluation: 16:00 - Subjective Subjective: Feeling better, Objective - Vital Signs/Intake and Output Vital Signs (last 24 hours): Temp Pulse Resp BP Pulse Ox 98.2 F 90 18 150/84 95 06/13/17 15:31 06/13/17 15:31 06/13/17 15:31 06/13/17 15:31 06/13/17 15:31 Intake and Output: 06/13/17 06/13/17 06:59 18:59 Intake Total 450 1330 Balance 450 1330 - Medications Medications: Current Medications Acetaminophen (Tylenol 325mg Tab) 650 mg PO Q6 PRN PRN Reason: Fever >100.4 F Last Admin: 06/05/17 02:27 Dose: 650 mg Ergocalciferol (Drisdol 50,000 Intl Units Cap) 1 cap PO QWK [facility] Last Admin: 06/11/17 09:42 Dose: 1 cap Ferric Sodium Gluconate Complex (Ferrlecit) 125 mg IVPB DAILY@2200 [facility] Stop: 06/13/17 22:01 Last Admin: 06/12/17 21:49 Dose: 125 mg Ceftriaxone Sodium 1 gm/ (Sodium Chloride) 100 mls @ 100 mls/hr IVPB DAILY [facility] Last Admin: 06/13/17 11:02 Dose: 100 mls/hr Pantoprazole Sodium (Protonix Ec Tab) 40 mg PO DAILY [facility] Last Admin: 06/13/17 11:02 Dose: 40 mg Rosuvastatin Calcium (Crestor) 5 mg PO HS [facility] Last Admin: 06/12/17 21:43 Dose: 5 mg Tamsulosin HCl (Flomax) 0.4 mg PO DAILY [facility] Last Admin: 06/13/17 11:02 Dose: 0.4 mg Tramadol HCl (Ultram) 50 mg PO TID PRN PRN Reason: Pain, moderate (4-7) Last Admin: 06/05/17 13:13 Dose: 50 mg - Labs Labs: 06/12/17 11:48 06/12/17 11:48 - Head Exam Head Exam: ATRAUMATIC - Eye Exam Eye Exam: Normal appearance - ENT Exam ENT Exam: Mucous Membranes Dry - Respiratory Exam Respiratory Exam: NORMAL BREATHING PATTERN - Cardiovascular Exam Cardiovascular Exam: +S1, +S2 - GI/Abdominal Exam GI & Abdominal Exam: Normal Bowel Sounds Assessment and Plan (1) Anemia Assessment & Plan: H/H improved with IV iron and Procrit FOBT positive; GI evaluation noted deferred PRBC transfusion Status: Acute
[2017-06-13] MEDS: Ferric Sodium Gluconat Complex 62.5 mg/5 ml Vial IVPB SCH (21:49)
[2017-06-14 07:45] LABS: BASO # 0.1 K/uL (0.0-0.2); BASO % 1.8 % (0.0-2.0); EOS # 0.2 K/uL (0.0-0.7); EOS % 2.6 % (0.0-4.0); HEMATOCRIT 27.4 % (34.0-47.0); LYMPH # 1.3 K/uL (1.0-4.3); LYMPH % 22.6 % (20.0-40.0); MEAN CELL VOLUME 76.1 fL (81.0-99.0); MEAN CORPUSCULAR HEMOGLOBIN 24.6 pg (27.0-31.0); MEAN CORPUSCULAR HGB CONC 32.3 g/dL (33.0-37.0); MEAN PLATELET VOLUME 7.6 fL (7.2-11.7); MONO # 0.5 K/uL (0.0-0.8); MONO % 7.8 % (0.0-10.0); NRBC % 0.3 % (0.0-2.0); RED CELL DISTRIBUTION WIDTH 16.3 % (11.5-14.5); WHITE BLOOD COUNT 5.9 K/uL (4.8-10.8)
[2017-06-14 07:56] LABS: BLOOD UREA NITROGEN 5 mg/dL (7-17); CALCIUM 8.3 mg/dl (8.6-10.4); CARBON DIOXIDE 32 mmol/L (22-30); CHLORIDE 101 mmol/L (98-107); GFR AFRICAN-AMERICAN > 60; GLUCOSE,RANDOM 86 mg/dL (65-105); POTASSIUM 3.8 mmol/L (3.6-5.2); SODIUM 141 mmol/L (132-148)
[2017-06-14 08:00] LABS: INR 1.3
[2017-06-14] MEDS: Pantoprazole 40 mg EC Tab PO SCH (09:39)
[2017-06-14] MEDS ORDERED: Propofol 10 mg/ml Inj (20 ML) ONE ×2 (12:30)
[2017-06-14] MEDS ORDERED: Lidocaine Hydrochloride 5 ML INJ ONE (12:31)
[2017-06-14] MEDS ORDERED: Simethicone 40 mg/0.6 ml Liquid (30 ml) ONE (12:50)
[2017-06-14 15:37] VITALS: BP 148/82; PULSE 85; RESP 20; TEMP 98; O2SAT 96
--- NOTE | 2017-06-14 17:15 | CP.PCM.PN ---
Subjective - Date & Time of Evaluation Date of Evaluation: 06/14/17 Time of Evaluation: 17:15 - Subjective Subjective: Alert, orientedx3, ambulatory, no distress. Objective - Vital Signs/Intake and Output Vital Signs (last 24 hours): Temp Pulse Resp BP Pulse Ox 98 F 85 20 148/82 96 06/14/17 15:34 06/14/17 15:34 06/14/17 15:34 06/14/17 15:34 06/14/17 15:34 Intake and Output: 06/14/17 06/14/17 06:59 18:59 Intake Total 750 790 Balance 750 790 - Medications Medications: Current Medications Acetaminophen (Tylenol 325mg Tab) 650 mg PO Q6 PRN PRN Reason: Fever >100.4 F Last Admin: 06/05/17 02:27 Dose: 650 mg Ergocalciferol (Drisdol 50,000 Intl Units Cap) 1 cap PO QWK [facility] Last Admin: 06/11/17 09:42 Dose: 1 cap Ceftriaxone Sodium 1 gm/ (Sodium Chloride) 100 mls @ 100 mls/hr IVPB DAILY [facility] Last Admin: 06/14/17 09:39 Dose: 100 mls/hr Pantoprazole Sodium (Protonix Ec Tab) 40 mg PO DAILY [facility] Last Admin: 06/14/17 09:39 Dose: 40 mg Rosuvastatin Calcium (Crestor) 5 mg PO HS [facility] Last Admin: 06/13/17 21:46 Dose: 5 mg Tamsulosin HCl (Flomax) 0.4 mg PO DAILY [facility] Last Admin: 06/14/17 09:39 Dose: 0.4 mg Tramadol HCl (Ultram) 50 mg PO TID PRN PRN Reason: Pain, moderate (4-7) Last Admin: 06/05/17 13:13 Dose: 50 mg - Labs Labs: 06/14/17 07:34 06/14/17 07:34 PT 15.5 SECONDS (9.7-12.2) H 06/14/17 07:34 INR 1.3 06/14/17 07:34 APTT 37 SECONDS (21-34) H 06/14/17 07:34 Assessment and Plan - Assessment and Plan (Free Text) Assessment: Patient is seen and examined. Family and patient requesting to go home. Patient is alert, oriented x3, denies sob or pain, afebrile. Discussed with DR Collins and DR Jacklyn Singh, cleared to discharge home. family wants to take her home today. Advised to follow up with PMD in 1 week. Advised to follow up with DR Ayala for anemia.
== END 2017-06-14 17:42 | disposition home or self-care (01) | DRG 144 ==
LOC: C.ER 20:48 → C.9E 06-04 00:26 → C.6T 06-04 14:02 → C.5S 06-07 17:54
PROVIDERS: ADMIT Internal Medicine Nephrology; ATTEND Internal Medicine Nephrology
PROC: 0DB58ZX Excision of Esophagus, Via Natural or Artificial Opening Endoscopic, Diagnostic (ICD-10-PCS; 2017-06-14)
PROC: 0DJD8ZZ Inspection of Lower Intestinal Tract, Via Natural or Artificial Opening Endoscopic (ICD-10-PCS; 2017-06-14)
PROC: 0DB68ZX Excision of Stomach, Via Natural or Artificial Opening Endoscopic, Diagnostic (ICD-10-PCS; principal; 2017-06-14 12:25)
PROC: 0DB98ZX Excision of Duodenum, Via Natural or Artificial Opening Endoscopic, Diagnostic (ICD-10-PCS; 2017-06-14 12:25)
DX: I30.1 Infective pericarditis (principal); I35.0 Nonrheumatic aortic (valve) stenosis; B34.9 Viral infection, unspecified; N39.0 Urinary tract infection, site not specified; R50.9 Fever, unspecified; K29.00 Acute gastritis without bleeding; B96.81 Helicobacter pylori [H. pylori] as the cause of diseases classified elsewhere; K64.1 Second degree hemorrhoids; D50.9 Iron deficiency anemia, unspecified; D72.825 Bandemia; E78.5 Hyperlipidemia, unspecified; M06.9 Rheumatoid arthritis, unspecified; N20.2 Calculus of kidney with calculus of ureter; Z87.442 Personal history of urinary calculi